=== PATIENT | female | born 1980 | race Hispanic/Latino ===

== ENCOUNTER 2024-09-19 16:41 | Inpatient (IN) | payer BC ==
[~2024-09-19] VITALS: Ht 177.8 cm; Wt 103.3 kg
[2024-09-19 19:00] VITALS: BP 98/61; PULSE 107; RESP 18; TEMP 98.2
[2024-09-19 20:00] VITALS: O2SAT 99
[2024-09-19] MEDS ORDERED: acetaMINOPHEN 500 MG TABLET PO PRN (20:00)
[2024-09-19] MEDS ORDERED: morPHINE 2 MG SYG IVP PRN (20:00)
--- NOTE | 2024-09-19 20:29 | HP ---
[facility] HISTORY AND PHYSICAL Date of Service: Sep 19, 2024 Time of Service: 20:29 HISTORY OF PRESENT ILLNESS: Date of Service: 09/19/2024, Patient was seen in [facility] room 316 44 year old female with Hx of DM II (Diagnosed 18 years ago), Obesity, HLD, Psoriasis who presented [facility] a [facility] for further evaluation of pain, redness and swelling of the right foot with non healing infected ulcer of the 5th toe of the right foot. Patient reports that she has non healing ulcer involving the 5th toe ongoing for the past 6 weeks. Over the last several days, patient reports having worsening pain and increased drainage from the wound. She has also noticed progressive redness involving the right foot as well. She reports having subjective fevers and chills. Patient reports having previous amputation performed of the 4th toe of the left foot in 2019 due to infection. She had revisional surgery done in 2021 involving the left foot. She reports having hardware in the left foot. Patient reports being followed by Cardiology as outpatient. She has seen Dr. Simpson previously and has undergone Peripheral arterial US which she was told was apparently normal. Reports hx of chronic hypotension but does not take any medication for it. Patient underwent X Ray of the right foot which showed changes of osteomyelitis of the 5th toe. Request was made for patient to be admitted to [facility]. Patient will be admitted under hospitalist service and consultation with Podiatry and infectious disease will be requested this admission. REVIEW OF SYSTEMS CONSTITUTIONAL: fevers, chills, asthenia, malaise NEUROLOGICAL: Denies headache, amaurosis fugax, motor weakness, sensory deficit, vertigo/spinning sensation, gait abnormalities, or tremors. ENT: No hearing loss, otalgia, otorrhea, rhinitis, rhinorrhea, hoarseness, or sore throat. CARDIOVASCULAR: Denies any exertional angina, dyspnea on exertion, orthopnea, paroxysmal nocturnal dyspnea, palpitations, life-threatening arrhythmias, claudication. PULMONARY: Denies any shortness of breath, cough, phlegm/sputum, hemoptysis, pleuritic chest pain. SLEEP: Denies morning headaches, daytime somnolence or napping. Denies difficulty falling asleep, staying asleep, waking from sleep. Denies knowledge of snoring. GASTROINTESTINAL: Denies any type of dysphagia to either liquids or solids. Denies nausea, vomiting, pyrosis, early satiety, abdominal pain, diarrhea, constipation, or changes in stool consistency or caliber. Denies coffee-ground emesis, hematemesis, hematochezia, or melanotic stools. GENITOURINARY: Denies frequency, urgency, nocturia, hematuria or incontinence (Storage/Irritative symptoms.) Low urinary stream, straining to void, urinary intermittency or hesitancy, splitting of the voiding stream, terminal dribbling. ENDOCRINOLOGIC: Denies polyuria, polydipsia, polyphagia or heat/cold intolerances. HEMATOLOGIC: Denies thrombophilia/previous clots, or coagulopathy/bleeding disorders. ONCOLOGIC: Denies personal history of malignancy. DERMATOLOGIC: redness and swelling of the right foot, with non heling wound involving the 5th toe of the right foot PSYCHIATRIC: Denies any suicidal or homicidal ideation. Denies hallucinations. PAST MEDICAL HISTORY: DM II, Hx of diabetic neuropathy of the foot, obesity, Psoriasis maintained on outpatient tx with otezla, hx of diabetic foot ulcer being followed by Dr. Sloan as outpatient PAST SURGICAL HISTORY: left 4th toe amputation in 2019, hx of revisional surgery of the left foot in 2021, hx of bilateral tubal ligation in 2004, hx of cholecystectomy PAST SOCIAL HISTORY: smoked about a pack a day for 30 years, quit a week ago, denies any significant alcohol consumption or illicit drug use, patient works in [employer] HISTORY: denies pertinent family hx Allergies: denies any known drug allergies Home medications: patient reports being on Otezla bid, tresiba 35 units at bedtime, metformin 1 g bid, atorvastatin, and Ozempic Uncoded Allergies: NKDA (Allergy, Unknown, 09/19/24) PHYSICAL EXAM GENERAL APPEARANCE: The patient is awake, alert, and oriented, in no acute cardiopulmonary distress. NEUROLOGICAL: Cranial nerves II-XII grossly intact. Motor is 5/5 in bilateral upper and lower extremities proximal to distal. No sensory deficits. HEENT: Face is symmetric. Pupils are equal and reactive. Extraocular movements are intact. NECK: Supple. No JVD. No thyromegaly. No submental, submandibular, pre- /postauricular, occipital or supraclavicular lymphadenopathy. CHEST: Normal chest expansion. No Telemetry. LUNGS: Absence of any rales, rhonchi or any wheezing. CARDIOVASCULAR: Regular. S1 and S2 normal. No appreciable rubs, murmurs or gallops. ABDOMEN: Soft, nontender, and nondistended. There is no rebound, voluntary guarding, or rigidity. : Deferred. No Donahue. EXTREMITIES: Ulcer noted of the first toe of the right foot with callus, 5th toe of the right foot with small wound noted with serosanguinous drainage with small opening, redness and swelling noted right foot noted as well. Left foot noted with prior scar of 4th toe amputation SKIN: as noted above LABS: Laboratory Tests Test 09/19/24 20:30 White Blood Count 10.8 K/uL (4.8-10.8) Red Blood Count 3.99 MIL/uL (4.00-5.50) L Hemoglobin 11.5 g/dL (12.0-16.0) L Hematocrit 35.9 % (36-48) L Mean Corpuscular Volume 90.0 fL (79-99) Mean Corpuscular Hemoglobin 28.8 pg (27.0-33.0) Mean Corpuscular Hemoglobin Concent 32.0 g/dL (32.0-36.0) Red Cell Distribution Width 13.2 % (11.0-15.5) Platelet Count 227 K/uL (130-400) Mean Platelet Volume 9.6 fL (7.5-10.5) Immature Granulocyte % (Auto) 0.4 % (0-1) Neutrophils (%) (Auto) 71.4 % (40.0-77.0) Lymphocytes (%) (Auto) 22.8 % (21.0-51.0) Monocytes (%) (Auto) 5.3 % (3.0-13.0) Eosinophils (%) (Auto) 0.0 % (0.0-8.0) Basophils (%) (Auto) 0.1 % (0.0-5.0) Neutrophils # (Auto) 7.7 K/uL (1.8-7.7) Lymphocytes # (Auto) 2.5 K/uL (1.0-4.8) Monocytes # (Auto) 0.6 K/uL (0.1-1.0) Eosinophils # (Auto) 0.00 K/uL (0.00-0.70) Basophils # (Auto) 0.01 K/uL (0.00-0.20) Absolute Immature Granulocyte (auto 0.04 K/uL (0-1) Nucleated Red Blood Cells 0.0 % (0.0-0.19) Erythrocyte Sedimentation Rate 21 MM/HR (0-20) H Prothrombin Time 11.3 SEC (9.6-11.6) Prothromb Time International Ratio 1.01 (0.85-1.15) Activated Partial Thromboplast Time 30.1 SEC (26.3-35.5) Sodium Level 142 mmol/L (136-145) Potassium Level 4.1 mmol/L (3.5-5.1) Chloride Level 106 mmol/L (101-111) Carbon Dioxide Level 32 mmol/L (21-32) Blood Urea Nitrogen 15 mg/dL (7-18) Creatinine 0.7 mg/dL (0.5-1.0) Glomerular Filtration Rate Calc 108 mL/min (>90) Random Glucose 128 mg/dL (70-105) H Hemoglobin A1c 7.9 % (4.0-6.0) H Estimated Average Glucose (eAG) 180 mg/dL (70-126) H Lactic Acid Level 0.9 mmol/L (0.8-2.5) Total Calcium 8.5 mg/dL (8.5-10.1) Magnesium Level 1.30 mg/dL (1.80-2.40) L Total Bilirubin 0.3 mg/dL (0.2-1.0) Aspartate Amino Transf (AST/SGOT) 9 U/L (10-37) L Alanine Aminotransferase (ALT/SGPT) 16 U/L (12-78) Alkaline Phosphatase 129 U/L (50-136) Total Creatine Kinase 47 U/L (21-232) C-Reactive Protein, Quantitative 25.20 mg/L (0.5-3.0) H Total Protein 6.2 g/dL (6.0-8.3) Albumin 2.8 g/dL (3.5-5.0) L Procalcitonin < 0.05 ng/mL (0.05-0.5) L Thyroid Stimulating Hormone (TSH) 4.54 uIU/mL (0.36-3.74) H Current Medications Medications (Trade) Dose Ordered Sig/Ramez Route PRN Reason Start Time Stop Time Status Last Admin Dose Admin Acetaminophen (TYLenol 500MG TAB) 500 mg Q6H PRN PO MILD PAIN (1-3) 09/19/24 20:00 10/19/24 19:59 UNV Cefepime HCl (MAXipime 2 gm vial) 2 gm Q12H IVPB 09/19/24 22:00 09/29/24 21:59 UNV Dextrose (D50w) 50 ml AD PRN IV HYPOGLYCEMIA PROTOCOL 09/19/24 20:30 10/19/24 20:29 UNV Glucagon (Glucagon 1mg Kit) 1 mg AD PRN IM HYPOGLYCEMIA PROTOCOL 09/19/24 20:30 10/19/24 20:29 UNV Insulin Glargine (LANtus 100 UNITS/ML 10 ML VIAL) 10 units HS SQ 09/19/24 21:00 10/19/24 20:59 UNV Insulin Human Regular (humuLIN R 100 UNIT/ML 3ML) INSULIN SLIDING SCAL... ACHS SQ 09/19/24 21:00 10/19/24 20:59 UNV Morphine Sulfate (morPHINE 2MG SYG) 2 mg Q6H PRN IVP SEVERE PAIN (7-10) 09/19/24 20:00 09/26/24 19:59 UNV Ondansetron HCl (zoFRAN 4MG INJ) 4 mg Q6H PRN IVP NAUSEA/VOMITING 09/19/24 20:30 10/19/24 20:29 UNV Sodium Chloride 1,000 ml @ 80 mls/hr [id number] IV 09/19/24 20:00 10/19/24 19:59 UNV Vancomycin HCl (Vancomycin Protocol) 1 each AD IV 09/19/24 20:30 10/03/24 20:29 UNV DIAGNOSTICS / RADIOLOGY: SERVICE 50 REASON: foot ulcer, 5th toe, assess for osteomyelitis, 1st toe with ulcer as well ORDERING PHYSICIAN: DAVID NDIAYE MD PROCEDURE: FT 3VW RT - FOOT COMP 3+VWS RT RIGHT FOOT RADIOGRAPHS - 3 VIEWS INDICATION: Fifth toe ulcer COMPARISON: None FINDINGS: AP, lateral, and oblique views. Erosive changes and lateral cortical fragmentation at the fifth proximal interphalangeal joint. No evidence for periosteal reaction, cortical erosive changes, or any abnormal subperiosteal bone resorption. Midfoot alignment is well maintained. Subcentimeter plantar calcaneal spur. IMPRESSION: Findings suggesting fifth proximal interphalangeal joint osteomyelitis. DICTATED BY: WILL FAN MD DATE: 09/19/242024 ELECTRONICALLY SIGNED BY: WILL FAN MD DATE: 09/19/242027 ASSESSMENT: Acute osteomyelitis of the 5th toe of PIP joint, right foot, POA Non healing diabetic ulcer of the 5th toe of right foot, POA Progressive cellulitis of the right foot, POA Chronic diabetic ulcer of the 1st toe of the right foot, POA Underlying Hx of DM II, POA Diabetic Neuropathy, POA Hx of Psoriasis, POA HLD, POA Obesity, POA Hx of Hypotension, POA Hx of 4th toe amputation of left foot, POA PLAN: Patient will be admitted ot medical surgical floor under telemetry monitoring Patient will receive bolus of IV fluids, will start NS at 80 mls/ h Wound cultures will be obtained, blood cultures, will check ESR, CRP, procalcitonin Broad spectrum abx with Vanc/Cefepime/flagyl Patient reports having hardware in left foot from prior surgery, will need to ensure it is safe fro MRI, will f/u in am, X Ray does confirm osteomyelitis of the 5 toe PIP joint of the right foot Discussed patient's case with Dr. Calabrese with podiatry and Dr. Mclean with infectious disease, appreciate recommendations We will repeat doppler of the RLE to assess for significant PAD limiting ulcer healing Will check lactic acid Patient has requested medical therapy and maximizing healing of the 5th toe of the right foot and would prefer not to undergo amputation of the right foot, d/w podiatry as well We will start lantus 10 units qhs and SSI ac and hs will f/u labs done tonight Date of Service: 09/19/2024 Plan of care was discussed with patient at bedside, David Ndiaye MD Advanced Care Planning: Which of the following were discussed: Hospice care: Yes __ No _X_ Therapeutic options: Yes _X_ No __ Advance directives: Yes _X_ No __ Other discussions: Discussed with who?: Patient Voluntary nature of this service was explained to the patient? Yes _x_ No __ Amount of time spent: 20 minutes DAVID NDIAYE MD Sep 19, 2024 20:29
[2024-09-19] MEDS ORDERED: ondanSETRON 4MG INJ IVP PRN (20:30)
[2024-09-19] MEDS ORDERED: VANCOMYCIN PROTOCOL PER PHARMACY IV SCH (20:30)
[2024-09-19] MEDS ORDERED: GLUCAGON 1MG KIT 1 MG ML IM PRN (20:30)
[2024-09-19] MEDS ORDERED: DEXTROSE 50%-WATER 50 ML DISP.SYRIN IV PRN (20:30)
[2024-09-19] MEDS: 0.9% NACL 500ML IV.SOLN 500 ML IV ONE (20:30)
[2024-09-19 20:41] LABS: BASOPHILS # (AUTO) 0.01 K/uL (0.00-0.20); BASOPHILS % (AUTO) 0.1 % (0.0-5.0); HEMATOCRIT 35.9 % (36-48); IMMATURE GRANULOCYTE ABSOLUTE 0.04 K/uL (0-1); LYMPHOCYTES # (AUTO) 2.5 K/uL (1.0-4.8); LYMPHOCYTES % (AUTO) 22.8 % (21.0-51.0); MEAN CORPUSCULAR HEMOGLOBIN 28.8 pg (27.0-33.0); MONOCYTES # (AUTO) 0.6 K/uL (0.1-1.0); MONOCYTES % (AUTO) 5.3 % (3.0-13.0); NEUTROPHILS # (AUTO) 7.7 K/uL (1.8-7.7); NEUTROPHILS % (AUTO) 71.4 % (40.0-77.0); PLATELET COUNT (AUTO) 227 K/uL (130-400); RED BLOOD CELL COUNT(AUTO) 3.99 MIL/uL (4.00-5.50); RED CELL DISTRIBUTION WIDTH 13.2 % (11.0-15.5); WHITE BLOOD COUNT (AUTO) 10.8 K/uL (4.8-10.8)
[2024-09-19 20:56] LABS: INR 1.01 (0.85-1.15); PROTHROMBIN TIME 11.3 SEC (9.6-11.6)
[2024-09-19 20:57] LABS: PARTIAL THROMBOPLASTIN TIME 30.1 SEC (26.3-35.5)
[2024-09-19 20:58] LABS: HEMOGLOBIN A1C 7.9 % (4.0-6.0)
[2024-09-19] MEDS: INSULIN humuLIN R 100 UNIT/ML 3ML SQ SCH (21:00)
[2024-09-19 21:03] LABS: CREATININE 0.7 mg/dL (0.5-1.0); POTASSIUM 4.1 mmol/L (3.5-5.1)
[2024-09-19] MEDS: INSULIN GLARgine 100 UNITS/ML 10 ML VIAL SQ SCH (21:10)
[2024-09-19 21:16] LABS: ALBUMIN 2.8 g/dL (3.5-5.0); BILIRUBIN,TOTAL 0.3 mg/dL (0.2-1.0); MAGNESIUM 1.3 mg/dL (1.80-2.40); THYROID STIMULATING HORMONE 4.54 uIU/mL (0.36-3.74); TOTAL PROTEIN, SERUM 6.2 g/dL (6.0-8.3)
[2024-09-19 21:43] LABS: ERYTHROCYTE SEDIMENTATION RATE 21 MM/HR (0-20)
[2024-09-19] MEDS: ceFEPime HCL 2 GM VIAL IVPB SCH (22:20)
[2024-09-19] MEDS: metRONIDazole 500MG/100ML BAG 100 ML IVPB SCH (23:44)
[2024-09-19 23:51] VITALS: BP 121/68; PULSE 97; RESP 17; TEMP 98
[2024-09-20] VITALS (7 sets, daily range): BP systolic 101–113; BP diastolic 64–70; PULSE 79–88; RESP 17–18; TEMP 98–98.3; O2SAT 95–99
[2024-09-20] MEDS: VANCOMYCIN 1.25 GM/250 ML BAG 250 ML IV SCH (00:53)
[2024-09-20] MEDS ORDERED: COMPOUND IV MISC 1 EACH IVSOLN MISC PRN (01:00)
[2024-09-20] MEDS: 0.9%NACL 1000ML 1,000 ML IV SCH (02:51)
[2024-09-20] MEDS: MAGNESIUM 2GM PREMIX 50ML 50 ML IV SCH (02:52)
[2024-09-20] MEDS ORDERED: METF-446 PO (09:49)
[2024-09-20] MEDS ORDERED: SEMA2PEN SQ (09:49)
[2024-09-20] MEDS ORDERED: ATOR20TA65 PO (09:49)
[2024-09-20] MEDS ORDERED: ASPI-1005 PO (09:49)
[2024-09-20] MEDS ORDERED: INSU100V37 SQ (09:49)
[2024-09-20] MEDS ORDERED: LACTULOSE 20 GM/30 ML UDCUP PO PRN (10:00)
--- NOTE | 2024-09-20 10:00 | HMCIMG ---
ULTRASOUND ARTERIAL DUPLEX RIGHT LOWER EXTREMITY, UNILATERAL INDICATION: Peripheral vascular disease TECHNIQUE: Routine grayscale, color Doppler, and power Doppler ultrasound of the right lower extremity arteries were obtained. COMPARISON: None FINDINGS: Velocities in cm/sec SHAPER SETTER: 120 SFA: Prox 112, Mid 130, Distal 135 Popliteal 106 proximally and 114 distally Anterior Tibial 118 distally Posterior Tibial 36 Dorsalis Pedis 111 Triphasic flow along the right lower extremity arterial system except for monophasic flow along the right posterior tibial, distal anterior tibial, and dorsalis pedis arteries. IMPRESSION: Monophasic flow along the right posterior tibial, distal anterior tibial, and dorsalis pedis arteries, without evidence for high-grade flow-rate limiting stenosis. Parameters as reported.
--- NOTE | 2024-09-20 10:02 | PN ---
[facility] PROGRESS NOTE Date of Service: Sep 20, 2024 Time of Service: 09:51 SUBJECTIVE: [ ] 44 year old female with Hx of DM II (Diagnosed 18 years ago), Obesity, HLD, Psoriasis who presented as a transfer from [facility] ER for further evaluation of pain, redness and sweeling of the right foot with no healing infected ulcer of the 5th toe of the right foot. Patient reports that she has non healing ulcer involving the 5th toe ongoing for the past 6 weeks. Over the last several days, patient reports having worsening pain and increased drainage from the wound. She has also noticed progressive redness involving the right foot as well. She reports having subjective fevers and chills. 09/20/2024 patient is seen and examined. Waiting for consultants to evaluate; Dr Arriola will see the patient today; will follow recommendations. primary reports no events overnight 1100 Dr arriola apparently patient does not want amputation of the toe wants to attempt with antibiotics and local wound care and hyperbarics armature winder repairer's we will be consulted. REVIEW OF SYSTEMS CONSTITUTIONAL: fevers, chills, asthenia, malaise NEUROLOGICAL: Denies headache, amaurosis fugax, motor weakness, sensory deficit, vertigo/spinning sensation, gait abnormalities, or tremors. ENT: No hearing loss, otalgia, otorrhea, rhinitis, rhinorrhea, hoarseness, or sore throat. CARDIOVASCULAR: Denies any exertional angina, dyspnea on exertion, orthopnea, paroxysmal nocturnal dyspnea, palpitations, life-threatening arrhythmias, claudication. PULMONARY: Denies any shortness of breath, cough, phlegm/sputum, hemoptysis, pleuritic chest pain. SLEEP: Denies morning headaches, daytime somnolence or napping. Denies difficulty falling asleep, staying asleep, waking from sleep. Denies knowledge of snoring. GASTROINTESTINAL: Denies any type of dysphagia to either liquids or solids. Denies nausea, vomiting, pyrosis, early satiety, abdominal pain, diarrhea, constipation, or changes in stool consistency or caliber. Denies coffee-ground emesis, hematemesis, hematochezia, or melanotic stools. GENITOURINARY: Denies frequency, urgency, nocturia, hematuria or incontinence (Storage/Irritative symptoms.) Low urinary stream, straining to void, urinary intermittency or hesitancy, splitting of the voiding stream, terminal dribbling. ENDOCRINOLOGIC: Denies polyuria, polydipsia, polyphagia or heat/cold intolerances. HEMATOLOGIC: Denies thrombophilia/previous clots, or coagulopathy/bleeding disorders. ONCOLOGIC: Denies personal history of malignancy. DERMATOLOGIC: redness and swelling of the right foot, with non heling wound inv olving the 5th toe of the right foot PSYCHIATRIC: Denies any suicidal or homicidal ideation. Denies hallucinations. PHYSICAL EXAM GENERAL APPEARANCE: The patient is awake, alert, and oriented, in no acute cardiopulmonary distress. NEUROLOGICAL: Cranial nerves II-XII grossly intact. Motor is 5/5 in bilateral upper and lower extremities proximal to distal. No sensory deficits. HEENT: Face is symmetric. Pupils are equal and reactive. Extraocular movements are intact. NECK: Supple. No JVD. No thyromegaly. No submental, submandibular, pre- /postauricular, occipital or supraclavicular lymphadenopathy. CHEST: Normal chest expansion. No Telemetry. LUNGS: Absence of any rales, rhonchi or any wheezing. CARDIOVASCULAR: Regular. S1 and S2 normal. No appreciable rubs, murmurs or gallops. ABDOMEN: Soft, nontender, and nondistended. There is no rebound, voluntary guarding, or rigidity. : Deferred. No Donahue. EXTREMITIES: Ulcer noted of the first toe of the right foot with callus, 5th toe of the right foot with small wound noted with serosanguinous drainage with small opening, redness and swelling noted right foot noted as well. Left foot noted with prior scar of 4th toe amputation SKIN: as noted above Vital Signs (last 8hr) Date Time Temp Pulse Resp B/P (MAP) Pulse Ox O2 Delivery O2 Flow Rate FiO2 09/20/24 08:00 98.1 81 18 102/65 8 09/20/24 04:14 98.1 88 17 112/66 92 Room Air LABS: Laboratory: Test 09/20/24 05:22 09/19/24 20:30 Range/Units Whole Blood Glucose 93 70-110 MG/DL White Blood Count 10.8 4.8-10.8 K/uL Red Blood Count 3.99 L 4.00-5.50 MIL/uL Hemoglobin 11.5 L 12.0-16.0 g/dL Hematocrit 35.9 L 36-48 % Mean Corpuscular Volume 90.0 79-99 fL Mean Corpuscular Hemoglobin 28.8 27.0-33.0 pg Mean Corpuscular Hemoglobin Concent 32.0 32.0-36.0 g/dL Red Cell Distribution Width 13.2 11.0-15.5 % Platelet Count 227 130-400 K/uL Mean Platelet Volume 9.6 7.5-10.5 fL Immature Granulocyte % (Auto) 0.4 0-1 % Neutrophils (%) (Auto) 71.4 40.0-77.0 % Lymphocytes (%) (Auto) 22.8 21.0-51.0 % Monocytes (%) (Auto) 5.3 3.0-13.0 % Eosinophils (%) (Auto) 0.0 0.0-8.0 % Basophils (%) (Auto) 0.1 0.0-5.0 % Neutrophils # (Auto) 7.7 1.8-7.7 K/uL Lymphocytes # (Auto) 2.5 1.0-4.8 K/uL Monocytes # (Auto) 0.6 0.1-1.0 K/uL Eosinophils # (Auto) 0.00 0.00-0.70 K/uL Basophils # (Auto) 0.01 0.00-0.20 K/uL Absolute Immature Granulocyte (auto 0.04 0-1 K/uL Nucleated Red Blood Cells 0.0 0.0-0.19 % Erythrocyte Sedimentation Rate 21 H 0-20 MM/HR Prothrombin Time 11.3 9.6-11.6 SEC Prothromb Time International Ratio 1.01 0.85-1.15 Activated Partial Thromboplast Time 30.1 26.3-35.5 SEC Sodium Level 142 136-145 mmol/L Potassium Level 4.1 3.5-5.1 mmol/L Chloride Level 106 101-111 mmol/L Carbon Dioxide Level 32 21-32 mmol/L Blood Urea Nitrogen 15 7-18 mg/dL Creatinine 0.7 0.5-1.0 mg/dL Glomerular Filtration Rate Calc 108 >90 mL/min Random Glucose 128 H 70-105 mg/dL Hemoglobin A1c 7.9 H 4.0-6.0 % Estimated Average Glucose (eAG) 180 H 70-126 mg/dL Lactic Acid Level 0.9 0.8-2.5 mmol/L Total Calcium 8.5 8.5-10.1 mg/dL Magnesium Level 1.30 L 1.80-2.40 mg/dL Total Bilirubin 0.3 0.2-1.0 mg/dL Aspartate Amino Transf (AST/SGOT) 9 L 10-37 U/L Alanine Aminotransferase (ALT/SGPT) 16 12-78 U/L Alkaline Phosphatase 129 50-136 U/L Total Creatine Kinase 47 21-232 U/L C-Reactive Protein, Quantitative 25.20 H 0.5-3.0 mg/L Total Protein 6.2 6.0-8.3 g/dL Albumin 2.8 L 3.5-5.0 g/dL Procalcitonin < 0.05 L 0.05-0.5 ng/mL Thyroid Stimulating Hormone (TSH) 4.54 H 0.36-3.74 uIU/mL Current Medications Medications (Trade) Dose Ordered Sig/Ramez Route PRN Reason Start Time Stop Time Status Last Admin Dose Admin Acetaminophen (TYLenol 500MG TAB) 500 mg Q6H PRN PO MILD PAIN (1-3) 09/19/24 20:00 10/19/24 19:59 Cefepime HCl (MAXipime 2 gm vial) 2 gm Q12H IVPB 09/19/24 22:00 09/29/24 21:59 09/20/24 09:26 2 GM Dextrose (D50w) 50 ml AD PRN IV HYPOGLYCEMIA PROTOCOL 09/19/24 20:30 10/19/24 20:29 Glucagon (Glucagon 1mg Kit) 1 mg AD PRN IM HYPOGLYCEMIA PROTOCOL 09/19/24 20:30 10/19/24 20:29 Insulin Glargine (LANtus 100 UNITS/ML 10 ML VIAL) 10 units HS SQ 09/19/24 21:00 10/19/24 20:59 09/19/24 21:10 10 UNITS Insulin Human Regular (humuLIN R 100 UNIT/ML 3ML) INSULIN SLIDING SCAL... ACHS SQ 09/19/24 21:00 10/19/24 20:59 Magnesium Sulfate 50 ml @ 0 mls/hr PROTOCOL IV 09/19/24 22:30 10/19/24 22:29 09/20/24 02:52 25 MLS/HR Metronidazole/ Sodium Chloride 100 ml @ 100 mls/hr Q8H6 IVPB 09/20/24 00:00 09/30/24 00:00 09/20/24 06:24 100 MLS/HR Morphine Sulfate (morPHINE 2MG SYG) 2 mg Q6H PRN IVP SEVERE PAIN (7-10) 09/19/24 20:00 09/26/24 19:59 Ondansetron HCl (zoFRAN 4MG INJ) 4 mg Q6H PRN IVP NAUSEA/VOMITING 09/19/24 20:30 10/19/24 20:29 Sodium Chloride 1,000 ml @ 80 mls/hr [id number] IV 09/19/24 20:00 10/19/24 19:59 09/20/24 09:33 80 MLS/HR Vancomycin HCl 250 ml @ 125 mls/hr Q8H IV 09/20/24 01:00 10/11/24 00:59 09/20/24 09:31 125 MLS/HR Vancomycin HCl (Vancomycin Protocol) 1 each AD IV 09/19/24 20:30 10/03/24 20:29 DIAGNOSTICS / RADIOLOGY: [ ] ASSESSMENT: Acute osteomyelitis of the 5th toe of PIP joint, right foot, POA Non healing diabetic ulcer of the 5th toe of right foot, POA Progressive cellulitis of the right foot, POA Chronic diabetic ulcer of the 1st of the right foot, POA Underlying Hx of DM II, POA Diabetic Neuropathy, POA Hx of Psoriasis, POA HLD, POA Obesity, POA Hx of Hypotension, POA Hx of 4th toe amputation of left foot, POA PLAN: Admit: Medical-surgical floor condition: Guarded Status: Full code IVF: NS at 80 mL/hour Consultants street light cleaner no surgical intervention as per patient wants to attempt with antibiotics and local wound care and hyperbarics., Infectious Disease, armature winder repairer's Antibiotics: Vanc/Cefepime/flagyl we will follow Infectious Disease recommendations Wound cultures in process Test: Arterial ultrasound pending results. Labs cbc, cmp, mag+ a.m. and inflammatory markers every other day. Replace electrolytes as needed as per protocol to keep potassium above 4.0 magnesium 2.0. Continue a.c. HS monitoring with sliding scale coverage Home medication reviewed and reconciled We will continue with local wound care per Podiatry, nonweightbearing left foot. PRN: MEDICATIONS Tylenol 650 mg po every 4 hrs for fever zofran 4 mg IV every 6 hrs for n/v Hydralazine 5 mg IV every 4 hrs systolic pressure > 160 bowel regiment: lactulose 20 gm PO BID PRN constipation Pain management:Morphine 2 mg IV q4 hrs as needed Supportive measures: DVT ppx, GI ppx all questions answered Supervising MD: Dr. mensah PBetzy c/d This document was generated in part using voice recognition software, occasional wrong word or sound alike substitutions may have occurred due to the inherent limitations of voice recognition software. Read the chart carefully and recognize using context, where the substitutions have occurred. Although every effort was made to edit the content, contact lens molder and typing errors may occur ATTESTATION BY PHYSICIAN I have seen and examined the patient. I reviewed the documentation, medical decision making, and treatment plan as noted by the mid-level provider above. I agree with the findings and plan of care. Sonia Mensah MD, ELIZABETH NP Sep 20, 2024 10:02
[2024-09-20] MEDS ORDERED: PoTASSium chloRIDE 20MEQ/100ML 100 ML IV PRN (10:30)
[2024-09-20] MEDS ORDERED: PoTASSium chl 10% ELIXIR 20MEQ 20 MEQ/15 ML UDCUP PO PRN (10:30)
--- NOTE | 2024-09-20 11:09 | CONS ---
CONSULTATION NOTE Date of Service: Sep 20, 2024 Reason for Consultation: This 44 years old female was seen on consultation courtesy of Dr. Ndiaye for evaluation of nonhealing ulcer to the 5th toe right foot patient stated that the ulcer has been present for seven weeks. X-ray evaluation demonstrated some changes on the proximal phalanx most likely consistent with osteomyelitis. Can not rule it out with MRI due to metal on left foot. Requesting Physician: Dr. Ndiaye HISTORY OF PRESENT ILLNESS: As stated above. REVIEW OF SYSTEMS CONSTITUTIONAL: Denies fever, chills, or fatigue. HEAD/FACE: No signs of trauma. EENT: Denies eye pain, blurred vision, double vision, or light sensitivity. RESPIRATORY: Denies shortness of breath, cough, wheezing CARDIOVASCULAR: Denies chest pain, palpitation, syncope GASTROINTESTINAL/ABDOMINAL: Denies abdominal pain, constipation, diarrhea, nausea or vomiting GENITOURINARY: Denies dysuria or hematuria. MUSCULOSKELETAL: Denies joint pain, tenderness, or trauma. INTEGUMENTARY: Ulcer edema and erythema to 5th toe right foot. NEUROLOGICAL/PSYCH: Denies anxiety, depression, heat or cold intolerance. PAST MEDICAL HISTORY: Diabetes obesity hypertension. PAST SURGICAL HISTORY: Metatarsal amputation to the left foot. PAST SOCIAL HISTORY: Denies any smoking drinking or using illicit drugs. FAMILY HISTORY: Noncontributory. Uncoded Allergies: NKDA (Allergy, Unknown, 09/19/24) PHYSICAL EXAM EYES: Anicteric. Pupils equal and reactive. HENT: No oral thrush seen, moist Oral mucosa NECK: Supple, no JVD or thyromegaly. LUNGS: Good air entry. No rales, no rhonchi. CARDIOVASCULAR: S1, S2 regular. No murmur heard. ABDOMEN: Soft, non tender, bowel sounds present, no organomegaly CENTRAL NERVOUS SYSTEM: Awake, alert, oriented x 3. No focal deficits. SKIN: Diabetic foot ulcer with edema and erythema. Fifth toe right foot. LYMPHATICS: No peripheral lymphadenopathy MUSCULOSKELETAL: No joint swelling, erythema or tenderness. EXTREMITIES: Hammer digit deformities on bilateral feet with ulceration of the 5th toe right foot possible osteomyelitis to 5th proximal phalanx BACK: No deformity, no pressure ulcer. GENITOURINARY: No dysuria or hematuria Vital Sign (Last 24 Hours) 09/19/24 09/20/24 09/20/24 20:00 04:14 08:00 Temp 98.1 Pulse 81 Resp 18 B/P (MAP) 102/65 Pulse Ox 8 O2 Delivery Room Air O2 Flow Rate 0 FiO2 21 Intake & Output (last 24hrs) 09/19/24 09/19/24 09/20/24 15:00 23:00 07:00 Intake Total 600.0 ml 1000.0 ml Balance 600.0 ml 1000.0 ml LABS: Laboratory: Test 09/20/24 05:22 09/19/24 20:30 Range/Units Whole Blood Glucose 93 70-110 MG/DL White Blood Count 10.8 4.8-10.8 K/uL Red Blood Count 3.99 L 4.00-5.50 MIL/uL Hemoglobin 11.5 L 12.0-16.0 g/dL Hematocrit 35.9 L 36-48 % Mean Corpuscular Volume 90.0 79-99 fL Mean Corpuscular Hemoglobin 28.8 27.0-33.0 pg Mean Corpuscular Hemoglobin Concent 32.0 32.0-36.0 g/dL Red Cell Distribution Width 13.2 11.0-15.5 % Platelet Count 227 130-400 K/uL Mean Platelet Volume 9.6 7.5-10.5 fL Immature Granulocyte % (Auto) 0.4 0-1 % Neutrophils (%) (Auto) 71.4 40.0-77.0 % Lymphocytes (%) (Auto) 22.8 21.0-51.0 % Monocytes (%) (Auto) 5.3 3.0-13.0 % Eosinophils (%) (Auto) 0.0 0.0-8.0 % Basophils (%) (Auto) 0.1 0.0-5.0 % Neutrophils # (Auto) 7.7 1.8-7.7 K/uL Lymphocytes # (Auto) 2.5 1.0-4.8 K/uL Monocytes # (Auto) 0.6 0.1-1.0 K/uL Eosinophils # (Auto) 0.00 0.00-0.70 K/uL Basophils # (Auto) 0.01 0.00-0.20 K/uL Absolute Immature Granulocyte (auto 0.04 0-1 K/uL Nucleated Red Blood Cells 0.0 0.0-0.19 % Erythrocyte Sedimentation Rate 21 H 0-20 MM/HR Prothrombin Time 11.3 9.6-11.6 SEC Prothromb Time International Ratio 1.01 0.85-1.15 Activated Partial Thromboplast Time 30.1 26.3-35.5 SEC Sodium Level 142 136-145 mmol/L Potassium Level 4.1 3.5-5.1 mmol/L Chloride Level 106 101-111 mmol/L Carbon Dioxide Level 32 21-32 mmol/L Blood Urea Nitrogen 15 7-18 mg/dL Creatinine 0.7 0.5-1.0 mg/dL Glomerular Filtration Rate Calc 108 >90 mL/min Random Glucose 128 H 70-105 mg/dL Hemoglobin A1c 7.9 H 4.0-6.0 % Estimated Average Glucose (eAG) 180 H 70-126 mg/dL Lactic Acid Level 0.9 0.8-2.5 mmol/L Total Calcium 8.5 8.5-10.1 mg/dL Magnesium Level 1.30 L 1.80-2.40 mg/dL Total Bilirubin 0.3 0.2-1.0 mg/dL Aspartate Amino Transf (AST/SGOT) 9 L 10-37 U/L Alanine Aminotransferase (ALT/SGPT) 16 12-78 U/L Alkaline Phosphatase 129 50-136 U/L Total Creatine Kinase 47 21-232 U/L C-Reactive Protein, Quantitative 25.20 H 0.5-3.0 mg/L Total Protein 6.2 6.0-8.3 g/dL Albumin 2.8 L 3.5-5.0 g/dL Procalcitonin < 0.05 L 0.05-0.5 ng/mL Thyroid Stimulating Hormone (TSH) 4.54 H 0.36-3.74 uIU/mL DIAGNOSTICS / RADIOLOGY: X-ray reports reviewed positive possible osteomyelitis 5th toe proximal phalanx. Right foot. ASSESSMENT: Diabetes with ulceration 5th toe right foot Osteomyelitis 5th toe right foot. Underlying peripheral vascular disease. 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 PLAN: Treatment options has been explained to the patient including amputation of the 5th toe versus IV antibiotics local wound care and Hyperbaric Medicine treatments. Patient at this moment a does not want amputation of the toe she we will attempt with the antibiotics local wound care and hyperbarics no guarantees were offered at this time the patient was explained that there is a chance she may lose this toe and possible complications including increased cellulitis edema erythema and osteomyelitis. Patient will be getting cardiovascular consultation secondary to her peripheral vascular disease. We will monitor his progress during the stay here in the hospital and the plan will be for continued IV antibiotics Hyperbaric local wound care for the next four weeks. And we will plan further depending on progress. Local wound care has been recommended at this time with Iodosorb every other day to the toe as a local wound care. And also pending Infectious Disease recommendation at this point. HEENA GREENFIELD DPM Sep 20, 2024 11:09
[2024-09-20] MEDS: IODOSORB GEL 40GM TP SCH (12:23)
--- NOTE | 2024-09-20 12:59 | CONS ---
Cardiac Consult Note CONSULT NOTE DATE OF SERVICE: September 20, 2024 REFERRING PROVIDER: RENETTA GONZALEZ MD REASON FOR CONSULT: [] Right foot wound Abnormal arterial Doppler studies HPI: 44-year-old female known to Dr. Simpson who was admitted secondary to poor healing wounds of right foot with possible 5th digit fracture although patient does not remember any trauma. She was originally seen by Dr. Simpson in 2022 and had noninvasive studies revealing monophasic waveforms of her infrapopliteal vessels with no evidence of macrovascular disease and there was then an IMS 100 that was done revealing a significant polyneuropathy and patient does admit to poorly controlled diabetes mellitus with a hemoglobin A1cs in the 11% range but with her last hemoglobin A1c at 6.7%. Patient has not had a formal angiogram performed. On patient's arterial Doppler done on this admission only a right lower extremity arterial Doppler study was performed with no comparison to left which will be ordered. It should be noted that she has had amputations of her left foot in the past. Patient does take aspirin atorvastatin Tresiba and metformin. She has no known allergies. Currently denies any chest pain pressure tightness. Denies any PND orthopnea with minimal lower extremity swelling. ROS: No fever, headache, chest pain, abdominal pain, nausea, vomiting, or diarrhea. PMHX: Diabetes mellitus Dyslipidemia Obesity Psoriasis PSHX: Left 4th digit amputation Cholecystectomy BTL FH: Positive for heart disease in maternal and paternal grandmothers in their 60s mother is father is alive Diabetes mellitus SOCIAL: Former smoker quit August 12, 2024 Denies alcohol use PHYSICAL EXAMINATION: GENERAL: No acute distress. HEENT: Normocephalic, atraumatic. CARDIAC: Positive S1 and S2. No murmurs. LUNGS: Clear to auscultation bilaterally. ABDOMEN: Bowel sounds present, soft, nontender. EXTREMITIES: Trace pretibial and pedal edema with palpable dorsalis pedis pulses bilaterally NEUROLOGIC: Cranial nerves 2-12 grossly intact. PSYCHIATRIC: Calm. ASSESSMENT: Poor healing ulcer x2 right foot Diabetic angiopathy Possible venous insufficiency and May-Thurner syndrome Psoriasis PLAN: Patient does indeed have monophasic waveforms noted in arterial Doppler study done of the right leg there was no comparison in the left leg noted and it should be also noted that patient has had these findings on previous arterial Doppler studies done in 2021. This could definitely be a component of microvascular disease but venous insufficiency can also be playing a role if there is significant venous reflux from a superficial level or deep level which could be contributing to poor wound healing. We will order venous Dopplers on patient in addition to a left lower extremity arterial Doppler for Dr. Simpson her primary anodiser and yarn bleaching machine operator to review when he sees patient tomorrow on daily rounds. At that time he will decide whether patient would benefit from formal angiography versus CT angiography and then decide on whether any venous workup should be done on an in or outpatient basis. All questions have been answered to patient's content orders have been given to patient's nurse and further recommendations will follow pending results. Vital Signs 09/19/24 09/19/24 09/19/24 09/20/24 19:00 20:00 23:51 04:14 Temp 98.2 98.1 98.1 Pulse 107 97 88 Resp 18 17 17 B/P (MAP) 98/61 121/68 112/66 Pulse Ox 99 99 97 92 O2 Delivery Room Air Room Air* Room Air Room Air O2 Flow Rate 0 FiO2 21 09/20/24 09/20/24 08:00 12:00 Temp 98.1 98.1 Pulse 81 79 Resp 18 18 B/P (MAP) 102/65 101/64 Pulse Ox 8 99 O2 Delivery Room Air Laboratory Tests Test 09/19/24 20:30 09/20/24 05:22 09/20/24 11:03 White Blood Count 10.8 K/uL (4.8-10.8) Red Blood Count 3.99 MIL/uL (4.00-5.50) Hemoglobin 11.5 g/dL (12.0-16.0) Hematocrit 35.9 % (36-48) Mean Corpuscular Volume 90.0 fL (79-99) Mean Corpuscular Hemoglobin 28.8 pg (27.0-33.0) Mean Corpuscular Hemoglobin Concent 32.0 g/dL (32.0-36.0) Red Cell Distribution Width 13.2 % (11.0-15.5) Platelet Count 227 K/uL (130-400) Mean Platelet Volume 9.6 fL (7.5-10.5) Immature Granulocyte % (Auto) 0.4 % (0-1) Neutrophils (%) (Auto) 71.4 % (40.0-77.0) Lymphocytes (%) (Auto) 22.8 % (21.0-51.0) Monocytes (%) (Auto) 5.3 % (3.0-13.0) Eosinophils (%) (Auto) 0.0 % (0.0-8.0) Basophils (%) (Auto) 0.1 % (0.0-5.0) Neutrophils # (Auto) 7.7 K/uL (1.8-7.7) Lymphocytes # (Auto) 2.5 K/uL (1.0-4.8) Monocytes # (Auto) 0.6 K/uL (0.1-1.0) Eosinophils # (Auto) 0.00 K/uL (0.00-0.70) Basophils # (Auto) 0.01 K/uL (0.00-0.20) Absolute Immature Granulocyte (auto 0.04 K/uL (0-1) Nucleated Red Blood Cells 0.0 % (0.0-0.19) Erythrocyte Sedimentation Rate 21 MM/HR (0-20) Prothrombin Time 11.3 SEC (9.6-11.6) Prothromb Time International Ratio 1.01 (0.85-1.15) Activated Partial Thromboplast Time 30.1 SEC (26.3-35.5) Sodium Level 142 mmol/L (136-145) Potassium Level 4.1 mmol/L (3.5-5.1) Chloride Level 106 mmol/L (101-111) Carbon Dioxide Level 32 mmol/L (21-32) Blood Urea Nitrogen 15 mg/dL (7-18) Creatinine 0.7 mg/dL (0.5-1.0) Glomerular Filtration Rate Calc 108 mL/min (>90) Random Glucose 128 mg/dL (70-105) Hemoglobin A1c 7.9 % (4.0-6.0) Estimated Average Glucose (eAG) 180 mg/dL (70-126) Lactic Acid Level 0.9 mmol/L (0.8-2.5) Total Calcium 8.5 mg/dL (8.5-10.1) Magnesium Level 1.30 mg/dL (1.80-2.40) Total Bilirubin 0.3 mg/dL (0.2-1.0) Aspartate Amino Transf (AST/SGOT) 9 U/L (10-37) Alanine Aminotransferase (ALT/SGPT) 16 U/L (12-78) Alkaline Phosphatase 129 U/L (50-136) Total Creatine Kinase 47 U/L (21-232) C-Reactive Protein, Quantitative 25.20 mg/L (0.5-3.0) Total Protein 6.2 g/dL (6.0-8.3) Albumin 2.8 g/dL (3.5-5.0) Procalcitonin < 0.05 ng/mL (0.05-0.5) Thyroid Stimulating Hormone (TSH) 4.54 uIU/mL (0.36-3.74) Whole Blood Glucose 93 MG/DL (70-110) 143 MG/DL (70-110) Current Medications Medications Dose Ordered Sig/Ramez Route PRN Reason Start Time Stop Time Status Last Admin Sodium Chloride 1,000 ml @ 80 mls/hr [id number] IV 09/19/24 20:00 10/19/24 19:59 09/20/24 09:33 Insulin Human Regular INSULIN SLIDING SCAL... ACHS SQ 09/19/24 21:00 10/19/24 20:59 Vancomycin HCl 1 each AD IV 09/19/24 20:30 10/03/24 20:29 Cefepime HCl 2 gm Q12H IVPB 09/19/24 22:00 09/29/24 21:59 09/20/24 09:26 Insulin Glargine 10 units HS SQ 09/19/24 21:00 10/19/24 20:59 09/19/24 21:10 Sodium Chloride 500 ml @ 0 mls/hr ONCE ONCE IV 09/19/24 20:30 09/19/24 20:36 DC 09/19/24 20:30 Metronidazole/ Sodium Chloride 100 ml @ 100 mls/hr Q8H6 IVPB 09/20/24 00:00 09/30/24 00:00 09/20/24 06:24 Vancomycin HCl 250 ml @ 125 mls/hr Q8H IV 09/20/24 01:00 10/11/24 00:59 09/20/24 09:31 Magnesium Sulfate 50 ml @ 0 mls/hr PROTOCOL IV 09/19/24 22:30 10/19/24 22:29 09/20/24 02:52 Aspirin 81 mg DAILY PO 09/21/24 09:00 10/21/24 08:59 Atorvastatin Calcium 20 mg HS PO 09/20/24 21:00 10/20/24 20:59 Cadexomer Iodine 1 APPL ONCE TP 09/20/24 11:00 10/20/24 10:59 09/20/24 12:23 Reported Medications Insulin Degludec (Tresiba) 100 Unit/Ml Vial, 35 UNIT SQ HS, VIAL 09/20/24 Semaglutide (Ozempic) 2 Mg/0.75 Ml (8 Mg/3 Ml) Pen.injctr, 2 MG SQ QWEEK for 30 Days, #3 ML 0 Refills 09/20/24 Metformin HCl (Metformin HCl) 1,000 Mg Tablet, 1000 MG PO BID, TAB 09/20/24 Atorvastatin Calcium (Atorvastatin Calcium) 20 Mg Tablet, 20 MG PO HS, TAB 09/20/24 Aspirin (ASPIRIN 81MG CHEW TAB) 81 Mg Tab.chew, 81 MG PO DAILY, TAB.CHEW 09/20/24 RENETTA GONZALEZ MD Sep 20, 2024 12:59
--- NOTE | 2024-09-20 14:10 | NUR ---
DCP CM SPOKE TO PT ASSESSMENT DONE. PATIENT IS INDEPENDENT PRIOR TO ADMISSION, LIVES AT HOME WITH HER PARTNER. DENIES ANY EQUIPMENT/SERVICES. FEELS SAFE TO GO BACK HOME, STILL WORK AND DRIVE, USES [facility] ON [address] [place] [address] FOR MEDS. DCP HOME ONCE STABLE. CM TO CONTINUE TO FOLLOW UP. Addendum: 09/20/24 at 1412 by JEFERSON CHAVEZ LVN CM Amended: Links added.
[2024-09-20] MEDS: NYSTatin 15 GM POWDER TP SCH (14:57)
[2024-09-20] MEDS: atorVAStatin 20 MG TABLET PO SCH (20:00)
[2024-09-20] MEDS: ENOXAPARIN SODIUM 40 MG/0.4 ML SYRINGE SQ SCH (20:01)
--- NOTE | 2024-09-20 20:05 | NUR ---
MEDS SHIFT ASSESSMENT DONE, PLEASE REFER TO CHART. DUE MEDS ADMINISTERED, TOLERATED WELL. KEPT RESTED AND COMFORTABLE. CALL LIGHT WITHIN EACH. FAMILY AT BEDSIDE.
[2024-09-20] MEDS ORDERED: NYSTatin 15 GM POWDER TP SCH (21:00)
--- NOTE | 2024-09-20 21:05 | CONS ---
CONSULTATION NOTE REQUESTING PHYSICIAN: Dr. David Ndiaye. REASON FOR CONSULTATION: Right fifth toe osteomyelitis. HISTORY OF PRESENT ILLNESS: A 44-year-old female with history of morbid obesity, hypertension, diabetes mellitus, presented to the hospital with right foot pain, swelling and redness. The patient noticed ulcer to the right fifth toe. A wound VAC has been going on for about 6 weeks. She denied fever or chills. No trauma or fall. X-ray has been done in the Emergency Room shows osteomyelitis. The patient has been started on vancomycin, cefepime, and Flagyl. Arterial Dopplers shows abnormal monophasic flow. The patient has been evaluated by Cardiology. PAST MEDICAL HISTORY: * Diabetes mellitus. * Morbid obesity. * Hypertension. * Dyslipidemia. * Psoriasis. * Peripheral vascular disease. * Left foot osteomyelitis. PAST SURGICAL HISTORY: * Left fourth toe amputation. * Peripheral angiogram. ALLERGIES: No known drug allergy. CURRENT MEDICATIONS: Reviewed. SOCIAL HISTORY: No alcohol, tobacco, or illicit drug use. FAMILY HISTORY: Positive for diabetes mellitus. REVIEW OF SYSTEMS: CONSTITUTIONAL: No fever or chills. No weight loss. EYES: No eye pain. No photophobia or diplopia. HENT: No sore throat. No rhinorrhea. No earache. NECK: No neck pain or neck swelling. RESPIRATORY: No cough. No hemoptysis or pleuritic pain. CARDIOVASCULAR: No chest pain. No palpitation or orthopnea. GASTROINTESTINAL: Denied nausea, vomiting, or abdominal pain. GENITOURINARY: No dysuria, urgency, no frequency. CENTRAL NERVOUS SYSTEM: No headache, dyspnea, or slurred speech. PSYCHIATRY: No depression. No suicidal ideation. MUSCULOSKELETAL: Positive for right fifth toe ulcer. PHYSICAL EXAMINATION: GENERAL: A young female, awake. VITAL SIGNS: Temperature 98.3, pulse 107, respiratory rate 18, BP 98/61. EYES: No icterus. Pupils equal and reactive. HENT: No oral thrush seen. Moist oral mucosa. BACK: Supple. No JVD or thyromegaly. LUNGS: Good air entry. No rales, no rhonchi. CARDIOVASCULAR: S1, S2 regular. No murmurs heard. ABDOMEN: Morbidly obese, soft, nontender. Bowel sound is present. CENTRAL NERVOUS SYSTEM: Awake, alert, oriented x 3. No focal deficits. SKIN: No rashes, no itchiness. LYMPHATIC: There is right inguinal lymphadenopathy. BACK: No deformity, no pressure ulcer. EXTREMITIES: ____ drainage involving the right fifth toe. There is surrounding erythema. LABORATORY DATA: Sodium 142, potassium 4.1, BUN 15, creatinine 0.7. WBC 10.1, hemoglobin 11.5, platelet 227. RADIOLOGY: Right foot x-ray shows fifth toe osteomyelitis. Arterial Doppler reported as normal mucosa. ASSESSMENT: A 44-year-old female presenting with right foot ulcer and pain: Current problems include: * ____ foot diabetic ulcer. * Right fifth toe osteomyelitis. * Morbid obesity. * Peripheral vascular disease. * Hypertension. * Diabetes mellitus. PLAN: * Follow up cultures. * Continue vancomycin. * Continue cefepime. * Continue wound care. * Continue antidiabetic. * Continue nutritional support. * Monitor electrolyte. * The patient will be followed closely. Thank you for allowing me to participate in the care of this patient. TID: [id number] RECEIPT: [id number]
--- NOTE | 2024-09-20 22:08 | HMCIMG ---
US VENOUS DOPPLER BILATERAL HISTORY: DVT COMPARISON: None TECHNIQUE: Bilateral lower extremity venous Doppler ultrasound study was performed. FINDINGS: The common femoral, femoral, popliteal, and posterior tibial veins are visualized. Normal flow with augmentation and compressibilities are demonstrated. The greater saphenous veins are also seen and grossly patent. IMPRESSION: 1. No evidence of deep venous thrombosis is seen.
--- NOTE | 2024-09-20 22:10 | HMCIMG ---
US ARTERIAL UNILA LOW EXT DUPL HISTORY: Pain COMPARISON: None TECHNIQUE: The lower extremity arterial Doppler ultrasound study was performed. FINDINGS: Normal triphasic arterial waveforms are noted in the left common femoral, deep femoral, superficial femoral, popliteal, posterior tibial and dorsalis pedal arteries. On the left, the peak systolic velocity of the common femoral artery is 115 cm/s, the proximal femoral artery is 102 cm/s, the mid femoral artery is 111 cm/s, the distal femoral artery is 100 cm/s, the proximal popliteal artery is 58 cm/s, the distal popliteal artery is 72 cm/s, the anterior tibial artery is 64 cm/s, the posterior tibial artery artery is 91 cm/s,and the dorsalis pedal artery is 86 cm/s. IMPRESSION: 1. Atherosclerotic disease. 2. Otherwise normal triphasic arterial waveforms noted of the left lower extremity artery system.
[2024-09-21] VITALS (8 sets, daily range): BP systolic 99–135; BP diastolic 62–75; PULSE 80–92; RESP 18–19; TEMP 97.8–99.1; O2SAT 98–99
[2024-09-21 05:52] LABS: BASOPHILS # (AUTO) 0.01 K/uL (0.00-0.20); BASOPHILS % (AUTO) 0.1 % (0.0-5.0); HEMATOCRIT 33.8 % (36-48); IMMATURE GRANULOCYTE ABSOLUTE 0.03 K/uL (0-1); LYMPHOCYTES % (AUTO) 27.7 % (21.0-51.0); MEAN CORPUSCULAR HEMOGLOBIN 29.1 pg (27.0-33.0); MEAN CORPUSCULAR HGB CONC 32.2 g/dL (32.0-36.0); MEAN CORPUSCULAR VOLUME 90.1 fL (79-99); MONOCYTES # (AUTO) 0.5 K/uL (0.1-1.0); MONOCYTES % (AUTO) 7.7 % (3.0-13.0); NEUTROPHILS # (AUTO) 4.5 K/uL (1.8-7.7); NEUTROPHILS % (AUTO) 64.1 % (40.0-77.0); PLATELET COUNT (AUTO) 226 K/uL (130-400); RED BLOOD CELL COUNT(AUTO) 3.75 MIL/uL (4.00-5.50); RED CELL DISTRIBUTION WIDTH 13.4 % (11.0-15.5); WHITE BLOOD COUNT (AUTO) 7.1 K/uL (4.8-10.8)
[2024-09-21 05:59] LABS: ALBUMIN 2.4 g/dL (3.5-5.0); BILIRUBIN,TOTAL 0.2 mg/dL (0.2-1.0); CREATININE 0.6 mg/dL (0.5-1.0); MAGNESIUM 1.6 mg/dL (1.80-2.40); POTASSIUM 4.3 mmol/L (3.5-5.1); TOTAL PROTEIN, SERUM 5.1 g/dL (6.0-8.3)
--- NOTE | 2024-09-21 06:19 | NUR ---
PRIYA PT SLEPT AT INTERVALS DURING THE SHIFT. DENIES ANY CONCERNS AT THIS TIME. NO DISTRESS NOTED. NEW IVF BAG HUNG. MG REPLACEMENT INFUSED PER PROTOCOL. KEPT RESTED IN BED. CALL LIGHT WITHIN REACH. FOR MORE CARE.
[2024-09-21] MEDS: ASPIRIN 81MG CHEW TAB PO SCH (08:30)
--- NOTE | 2024-09-21 12:22 | PN ---
[facility] PROGRESS NOTE Date of Service: Sep 21, 2024 Time of Service: 12:[address] Mahmood SUBJECTIVE: [ ] 09/19/24 44 year old female with Hx of DM II (Diagnosed 18 years ago), Obesity, HLD, Psoriasis who presented as a transfer from [facility] for further evaluation of pain, redness and sweeling of the right foot with no healing infected ulcer of the 5th toe of the right foot. Patient reports that she has non healing ulcer involving the 5th toe ongoing for the past 6 weeks. Over the last several days, patient reports having worsening pain and increased drainage from the wound. She has also noticed progressive redness involving the right foot as well. She reports having subjective fevers and chills. 09/20/2024 patient is seen and examined. Waiting for consultants to evaluate; Dr Arriola will see the patient today; will follow recommendations. primary reports no events overnight 1100 Dr arriola apparently patient does not want amputation of the toe wants to attempt with antibiotics and local wound care and hyperbarics die storage clerk's we will be consulted. 09/21/24 patient was seen by nurse practitioner and physician during rounding in room 316 comfortably lying in the bed. Patient is refusing amputation with Dr. Arriola at this moment. Patient would like to proceed with antibiotic treatment 1st and if anything maybe in the future amputation. We have Infectious Disease doctor on case and we will wait at this moment for further recommendations of outpatient antibiotics IV versus POA. As per die storage clerk Patient does indeed have monophasic waveforms noted in arterial Doppler study done of the right leg there was no comparison in the left leg noted and it should be also noted that patient has had these findings on previous arterial Doppler studies done in 2021. This could definitely be a component of microvascular disease but venous insufficiency can also be playing a role if there is significant venous reflux from a superficial level or deep level which could be contributing to poor wound healing. We will order venous Dopplers on patient in addition to a left lower extremity arterial Doppler for Dr. Simpson her primary die storage clerk and cardiovascular operating room nurse to review when he sees patient tomorrow on daily rounds. At that time he will decide whether patient would benefit from formal angiography versus CT angiography and then decide on whether any venous workup should be done on an in or outpatient basis. All the labs and radiology was reviewed by NEONATOLOGIST. We will continue to monitor patient. A.m. labs REVIEW OF SYSTEMS CONSTITUTIONAL: fevers, chills, asthenia, malaise NEUROLOGICAL: Denies headache, amaurosis fugax, motor weakness, sensory deficit, vertigo/spinning sensation, gait abnormalities, or tremors. ENT: No hearing loss, otalgia, otorrhea, rhinitis, rhinorrhea, hoarseness, or sore throat. CARDIOVASCULAR: Denies any exertional angina, dyspnea on exertion, orthopnea, paroxysmal nocturnal dyspnea, palpitations, life-threatening arrhythmias, claudication. PULMONARY: Denies any shortness of breath, cough, phlegm/sputum, hemoptysis, pleuritic chest pain. SLEEP: Denies morning headaches, daytime somnolence or napping. Denies difficulty falling asleep, staying asleep, waking from sleep. Denies knowledge of snoring. GASTROINTESTINAL: Denies any type of dysphagia to either liquids or solids. Denies nausea, vomiting, pyrosis, early satiety, abdominal pain, diarrhea, constipation, or changes in stool consistency or caliber. Denies coffee-ground emesis, hematemesis, hematochezia, or melanotic stools. GENITOURINARY: Denies frequency, urgency, nocturia, hematuria or incontinence (Storage/Irritative symptoms.) Low urinary stream, straining to void, urinary intermittency or hesitancy, splitting of the voiding stream, terminal dribbling. ENDOCRINOLOGIC: Denies polyuria, polydipsia, polyphagia or heat/cold intolerances. HEMATOLOGIC: Denies thrombophilia/previous clots, or coagulopathy/bleeding disorders. ONCOLOGIC: Denies personal history of malignancy. DERMATOLOGIC: redness and swelling of the right foot, with non heling wound involving the 5th toe of the right foot PSYCHIATRIC: Denies any suicidal or homicidal ideation. Denies hallucinations. PHYSICAL EXAM GENERAL APPEARANCE: The patient is awake, alert, and oriented, in no acute cardiopulmonary distress. NEUROLOGICAL: Cranial nerves II-XII grossly intact. Motor is 5/5 in bilateral upper and lower extremities proximal to distal. No sensory deficits. HEENT: Face is symmetric. Pupils are equal and reactive. Extraocular movements are intact. NECK: Supple. No JVD. No thyromegaly. No submental, submandibular, pre- /postauricular, occipital or supraclavicular lymphadenopathy. CHEST: Normal chest expansion. No Telemetry. LUNGS: Absence of any rales, rhonchi or any wheezing. CARDIOVASCULAR: Regular. S1 and S2 normal. No appreciable rubs, murmurs or gallops. ABDOMEN: Soft, nontender, and nondistended. There is no rebound, voluntary guarding, or rigidity. : Deferred. No Donahue. EXTREMITIES: Ulcer noted of the first toe of the right foot with callus, 5th toe of the right foot with small wound noted with serosanguinous drainage with small opening, redness and swelling noted right foot noted as well. Left foot noted with prior scar of 4th toe amputation SKIN: as noted above Vital Signs (last 8hr) Date Time Temp Pulse Resp B/P (MAP) Pulse Ox O2 Delivery O2 Flow Rate FiO2 09/21/24 11:44 98.1 81 19 118/70 97 Room Air 09/21/24 08:00 98 Room Air* 0 21 09/21/24 07:54 98.1 85 19 135/75 98 Room Air LABS: Laboratory: Test 09/21/24 10:44 09/21/24 05:05 09/21/24 00:12 09/19/24 20:30 Range/Units Whole Blood Glucose 198 H 70-110 MG/DL White Blood Count 7.1 4.8-10.8 K/uL Red Blood Count 3.75 L 4.00-5.50 MIL/uL Hemoglobin 10.9 L 12.0-16.0 g/dL Hematocrit 33.8 L 36-48 % Mean Corpuscular Volume 90.1 79-99 fL Mean Corpuscular Hemoglobin 29.1 27.0-33.0 pg Mean Corpuscular Hemoglobin Concent 32.2 32.0-36.0 g/dL Red Cell Distribution Width 13.4 11.0-15.5 % Platelet Count 226 130-400 K/uL Mean Platelet Volume 10.0 7.5-10.5 fL Immature Granulocyte % (Auto) 0.4 0-1 % Neutrophils (%) (Auto) 64.1 40.0-77.0 % Lymphocytes (%) (Auto) 27.7 21.0-51.0 % Monocytes (%) (Auto) 7.7 3.0-13.0 % Eosinophils (%) (Auto) 0.0 0.0-8.0 % Basophils (%) (Auto) 0.1 0.0-5.0 % Neutrophils # (Auto) 4.5 1.8-7.7 K/uL Lymphocytes # (Auto) 2.0 1.0-4.8 K/uL Monocytes # (Auto) 0.5 0.1-1.0 K/uL Eosinophils # (Auto) 0.00 0.00-0.70 K/uL Basophils # (Auto) 0.01 0.00-0.20 K/uL Absolute Immature Granulocyte (auto 0.03 0-1 K/uL Nucleated Red Blood Cells 0.0 0.0-0.19 % Sodium Level 145 136-145 mmol/L Potassium Level 4.3 3.5-5.1 mmol/L Chloride Level 111 101-111 mmol/L Carbon Dioxide Level 27 21-32 mmol/L Blood Urea Nitrogen 17 7-18 mg/dL Creatinine 0.6 0.5-1.0 mg/dL Glomerular Filtration Rate Calc 112 >90 mL/min Random Glucose 156 H 70-105 mg/dL Total Calcium 8.1 L 8.5-10.1 mg/dL Magnesium Level 1.60 L 1.80-2.40 mg/dL Total Bilirubin 0.2 0.2-1.0 mg/dL Aspartate Amino Transf (AST/SGOT) 11 10-37 U/L Alanine Aminotransferase (ALT/SGPT) 16 12-78 U/L Alkaline Phosphatase 122 50-136 U/L C-Reactive Protein, Quantitative 19.70 H 0.5-3.0 mg/L Total Protein 5.1 L 6.0-8.3 g/dL Albumin 2.4 L 3.5-5.0 g/dL Procalcitonin < 0.05 L 0.05-0.5 ng/mL Vancomycin Level Trough 19.5 10.0-20.0 UG/ML Erythrocyte Sedimentation Rate 21 H 0-20 MM/HR Prothrombin Time 11.3 9.6-11.6 SEC Prothromb Time International Ratio 1.01 0.85-1.15 Activated Partial Thromboplast Time 30.1 26.3-35.5 SEC Hemoglobin A1c 7.9 H 4.0-6.0 % Estimated Average Glucose (eAG) 180 H 70-126 mg/dL Lactic Acid Level 0.9 0.8-2.5 mmol/L Total Creatine Kinase 47 21-232 U/L Thyroid Stimulating Hormone (TSH) 4.54 H 0.36-3.74 uIU/mL Current Medications Medications (Trade) Dose Ordered Sig/Ramez Route PRN Reason Start Time Stop Time Status Last Admin Dose Admin Acetaminophen (TYLenol 500MG TAB) 500 mg Q6H PRN PO MILD PAIN (1-3) 09/19/24 20:00 10/19/24 19:59 Aspirin (Aspirin 81mg Chew Tab) 81 mg DAILY PO 09/21/24 09:00 10/21/24 08:59 Atorvastatin Calcium (LIPItor 20MG) 20 mg HS PO 09/20/24 21:00 10/20/24 20:59 09/20/24 20:00 20 MG Cadexomer Iodine (Iodosorb Gel 40gm) 1 APPL ONCE TP 09/20/24 11:00 09/20/24 18:08 DC 09/20/24 12:23 1 APPL Cefepime HCl (MAXipime 2 gm vial) 2 gm Q12H IVPB 09/19/24 22:00 09/29/24 21:59 09/21/24 11:24 2 GM Dextrose (D50w) 50 ml AD PRN IV HYPOGLYCEMIA PROTOCOL 09/19/24 20:30 10/19/24 20:29 Enoxaparin Sodium (Lovenox) 40 mg HS SQ 09/20/24 21:00 10/20/24 20:59 09/20/24 20:01 40 MG Glucagon (Glucagon 1mg Kit) 1 mg AD PRN IM HYPOGLYCEMIA PROTOCOL 09/19/24 20:30 10/19/24 20:29 Insulin Glargine (LANtus 100 UNITS/ML 10 ML VIAL) 10 units HS SQ 09/19/24 21:00 10/19/24 20:59 09/20/24 20:06 10 UNITS Insulin Human Regular (humuLIN R 100 UNIT/ML 3ML) INSULIN SLIDING SCAL... ACHS SQ 09/19/24 21:00 10/19/24 20:59 09/21/24 11:40 2 UNIT Lactulose (Constulose 20gm/ 30ml Udcup) 20 gm BID PRN PO CONSTIPATION 09/20/24 10:00 10/20/24 09:59 Magnesium Sulfate 50 ml @ 0 mls/hr PROTOCOL IV 09/19/24 22:30 10/19/24 22:29 09/21/24 06:19 25 MLS/HR Metronidazole/ Sodium Chloride 100 ml @ 100 mls/hr Q8H6 IVPB 09/20/24 00:00 09/30/24 00:00 09/21/24 05:07 100 MLS/HR Morphine Sulfate (morPHINE 2MG SYG) 2 mg Q6H PRN IVP SEVERE PAIN (7-10) 09/19/24 20:00 09/26/24 19:59 Nystatin (NystOP 15 GM POWDER) 1 APPL BID TP 09/20/24 15:00 10/20/24 14:59 09/21/24 08:30 1 APPL Nystatin (NystOP 15 GM POWDER) 1 APPL BID TP 09/20/24 21:00 09/20/24 14:54 DC Ondansetron HCl (zoFRAN 4MG INJ) 4 mg Q6H PRN IVP NAUSEA/VOMITING 09/19/24 20:30 10/19/24 20:29 Potassium Chloride 100 ml @ 100 mls/hr AD PRN IV POTASSIUM PROTOCOL 09/20/24 10:30 10/20/24 10:29 Potassium Chloride (K-Dur/Klor-Con 20meq) 20 meq AD PRN PO POTASSIUM PROTOCOL 09/20/24 10:30 10/20/24 10:29 Potassium Chloride (KCl 10% Elixir 20meq/15ml) 20 meq AD PRN PO POTASSIUM PROTOCOL 09/20/24 10:30 10/20/24 10:29 Sodium Chloride 1,000 ml @ 80 mls/hr [id number] IV 09/19/24 20:00 10/19/24 19:59 09/21/24 06:02 80 MLS/HR Vancomycin HCl 250 ml @ 125 mls/hr Q8H IV 09/20/24 01:00 10/11/24 00:59 09/21/24 08:27 125 MLS/HR Vancomycin HCl (Vancomycin Protocol) 1 each AD IV 09/19/24 20:30 10/03/24 20:29 DIAGNOSTICS / RADIOLOGY: [ ] ASSESSMENT: Acute osteomyelitis of the 5th toe of PIP joint, right foot, POA Non healing diabetic ulcer of the 5th toe of right foot, POA Progressive cellulitis of the right foot, POA Chronic diabetic ulcer of the 1st of the right foot, POA Underlying Hx of DM II, POA Diabetic Neuropathy, POA Hx of Psoriasis, POA HLD, POA Obesity, POA Hx of Hypotension, POA 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 Normal saline at 80 mL/hour to continue Pending further recommendations of outpatient antibiotics per ID Consultants scratch polisher no surgical intervention as per patient wants to attempt with antibiotics and local wound care and hyperbarics., Asper die storage clerk patient would benefit from formal angiography versus CT angiography and then decide on whether any venous workup should be done on an in or outpatient basis. Antibiotics: Vanc/Cefepime/flagyl we will follow Infectious Disease recommendations Wound cultures in process Test: Arterial ultrasound pending results. Labs cbc, cmp, mag+ a.m. and inflammatory markers every other day. Replace electrolytes as needed as per protocol to keep potassium above 4.0 magnesium 2.0. Continue a.c. HS monitoring with sliding scale coverage Home medication reviewed and reconciled We will continue with local wound care per Podiatry, nonweightbearing left foot. Supportive measures: DVT ppx, GI ppx all questions answered This document was generated in part using voice recognition software, occasional wrong word or sound alike substitutions may have occurred due to the inherent limitations of voice recognition software. Read the chart carefully and recognize using context, where the substitutions have occurred. Although every effort was made to edit the content, food supervisor and typing errors may occur ATTESTATION BY PHYSICIAN I have seen and examined the patient. I reviewed the documentation, medical decision making, and treatment plan as noted by the mid-level provider above. I agree with the findings and plan of care. Sonia Mahmood MD, KATARZYNA B SANIPRACTIC PHYSICIAN Sep 21, 2024 12:22
--- NOTE | 2024-09-21 14:41 | NUR ---
[facility] Consult: Patient assessed by wound healing team. See wound assessment. Assessment and recommendations provided to primary nurse. Education provided. Wound care done. Addendum: 09/22/24 at 1140 by MARTINA RICE RN RN/ Amended: Links added.
[2024-09-21 16:13] LABS: INR 1.02 (0.85-1.15); PROTHROMBIN TIME 11.4 SEC (9.6-11.6)
[2024-09-21 16:14] LABS: PARTIAL THROMBOPLASTIN TIME 29.1 SEC (26.3-35.5)
--- NOTE | 2024-09-21 18:38 | PN ---
INFECTIOUS DISEASE PROGRESS NOTE Date of Service: Sep 21, 2024 SUBJECTIVE: This is a 44-year-old female patient who was admitted to the hospital for chief complaint of pain, redness and swelling to the right foot. Patient was seen and examined at bedside in room 316. Patient is awake, alert and oriented x3. Bloody drainage observed from the wound on the right 5th toe. Right foot x-ray findings of right 5th proximal interphalangeal joint osteomyelitis. Preliminary right foot wound culture is growing Gram-positive cocci in clusters/Staphylococcus aureus. Patient continues on vancomycin, cefepime and metronidazole IV. No fever, temperature 98.1 and a WBC of 7.1. Patient will need long-term IV antibiotics. Will place PICC line and we will follow up on the final wound culture results. PHYSICAL EXAM EYES: Anicteric. Pupils equal and reactive. HENT: No oral thrush seen, moist Oral mucosa. NECK: Supple, no JVD or thyromegaly. LUNGS: Good air entry. No rales, no rhonchi. CARDIOVASCULAR: S1, S2 regular. No murmur heard. ABDOMEN: Soft, non tender, bowel sounds present, no organomegaly. CENTRAL NERVOUS SYSTEM: Awake, alert, oriented x 3. SKIN: No rashes, no swelling. LYMPHATICS: No peripheral lymphadenopathy. MUSCULOSKELETAL: No joint swelling, erythema or tenderness. EXTREMITIES: No cyanosis or clubbing. Right 5th toe diabetic ulcer. BACK: No deformity, no pressure ulcer. GENITOURINARY: No dysuria or hematuria. Vital Sign (Last 12 Hours) 09/21/24 09/21/24 09/21/24 09/21/24 07:54 08:00 11:44 16:25 Temp 98.1 98.1 97.9 Pulse 85 81 80 Resp 19 19 19 B/P (MAP) 135/75 118/70 127/75 Pulse Ox 98 98 97 99 O2 Delivery Room Air Room Air* Room Air Room Air O2 Flow Rate 0 FiO2 21 Intake & Output (last 24hrs) 09/20/24 09/20/24 09/21/24 14:59 22:59 06:59 Intake Total 240 ml 390 ml 872.0 ml Balance 240 ml 390 ml 872.0 ml LABS: Laboratory: Test 09/21/24 15:48 09/21/24 15:26 09/21/24 05:05 09/21/24 00:12 Range/Units Prothrombin Time 11.4 9.6-11.6 SEC Prothromb Time International Ratio 1.02 0.85-1.15 Activated Partial Thromboplast Time 29.1 26.3-35.5 SEC Whole Blood Glucose 121 H 70-110 MG/DL White Blood Count 7.1 4.8-10.8 K/uL Red Blood Count 3.75 L 4.00-5.50 MIL/uL Hemoglobin 10.9 L 12.0-16.0 g/dL Hematocrit 33.8 L 36-48 % Mean Corpuscular Volume 90.1 79-99 fL Mean Corpuscular Hemoglobin 29.1 27.0-33.0 pg Mean Corpuscular Hemoglobin Concent 32.2 32.0-36.0 g/dL Red Cell Distribution Width 13.4 11.0-15.5 % Platelet Count 226 130-400 K/uL Mean Platelet Volume 10.0 7.5-10.5 fL Immature Granulocyte % (Auto) 0.4 0-1 % Neutrophils (%) (Auto) 64.1 40.0-77.0 % Lymphocytes (%) (Auto) 27.7 21.0-51.0 % Monocytes (%) (Auto) 7.7 3.0-13.0 % Eosinophils (%) (Auto) 0.0 0.0-8.0 % Basophils (%) (Auto) 0.1 0.0-5.0 % Neutrophils # (Auto) 4.5 1.8-7.7 K/uL Lymphocytes # (Auto) 2.0 1.0-4.8 K/uL Monocytes # (Auto) 0.5 0.1-1.0 K/uL Eosinophils # (Auto) 0.00 0.00-0.70 K/uL Basophils # (Auto) 0.01 0.00-0.20 K/uL Absolute Immature Granulocyte (auto 0.03 0-1 K/uL Nucleated Red Blood Cells 0.0 0.0-0.19 % Sodium Level 145 136-145 mmol/L Potassium Level 4.3 3.5-5.1 mmol/L Chloride Level 111 101-111 mmol/L Carbon Dioxide Level 27 21-32 mmol/L Blood Urea Nitrogen 17 7-18 mg/dL Creatinine 0.6 0.5-1.0 mg/dL Glomerular Filtration Rate Calc 112 >90 mL/min Random Glucose 156 H 70-105 mg/dL Total Calcium 8.1 L 8.5-10.1 mg/dL Magnesium Level 1.60 L 1.80-2.40 mg/dL Total Bilirubin 0.2 0.2-1.0 mg/dL Aspartate Amino Transf (AST/SGOT) 11 10-37 U/L Alanine Aminotransferase (ALT/SGPT) 16 12-78 U/L Alkaline Phosphatase 122 50-136 U/L C-Reactive Protein, Quantitative 19.70 H 0.5-3.0 mg/L Total Protein 5.1 L 6.0-8.3 g/dL Albumin 2.4 L 3.5-5.0 g/dL Procalcitonin < 0.05 L 0.05-0.5 ng/mL Vancomycin Level Trough 19.5 10.0-20.0 UG/ML Test 09/19/24 20:30 Range/Units Erythrocyte Sedimentation Rate 21 H 0-20 MM/HR Hemoglobin A1c 7.9 H 4.0-6.0 % Estimated Average Glucose (eAG) 180 H 70-126 mg/dL Lactic Acid Level 0.9 0.8-2.5 mmol/L Total Creatine Kinase 47 21-232 U/L Thyroid Stimulating Hormone (TSH) 4.54 H 0.36-3.74 uIU/mL DIAGNOSTICS / RADIOLOGY: PATIENT: ALMA GUZMAN V MR#: [id number] : 1980 SEX: F AGE: 44 LOCATION: [facility] ORDER 53 STATUS: ADM IN REPORT#: [id number] SERVICE 50 REASON: foot ulcer, 5th toe, assess for osteomyelitis, 1st toe with ulcer as well ORDERING PHYSICIAN: CONSTANCE PICKARD MD PROCEDURE: FT 3VW RT - FOOT COMP 3+VWS RT RIGHT FOOT RADIOGRAPHS - 3 VIEWS INDICATION: Fifth toe ulcer COMPARISON: None FINDINGS: AP, lateral, and oblique views. Erosive changes and lateral cortical fragmentation at the fifth proximal interphalangeal joint. No evidence for periosteal reaction, cortical erosive changes, or any abnormal subperiosteal bone resorption. Midfoot alignment is well maintained. Subcentimeter plantar calcaneal spur. IMPRESSION: Findings suggesting fifth proximal interphalangeal joint osteomyelitis. DICTATED BY: WILL FAN MD DATE: 09/19/242024 ASSESSMENT: Right 5th toe diabetic ulcer with osteomyelitis. Peripheral vascular disease. Diabetes mellitus. Obesity. PLAN: Continue vancomycin per pharmacy protocol. Continue cefepime IV. Continue metronidazole IV. Continue wound care as recommended by director speech and hearing. Patient will need long-term IV antibiotics. Place PICC line. Continue pain management. We will follow up on the final wound culture results. Continue monitoring glucose levels. This case was reviewed and discussed with my supervising physician and the above assessment and plan was formulated and agreed upon. ATTESTATION BY PHYSICIAN I have seen and examined the patient. I reviewed the documentation, medical decision making, and treatment plan as noted by the mid-level provider above. I agree with the findings and plan of care. BEBE VIGIL MD, MIRTA L CHEMIST ASSISTANT Sep 21, 2024 18:38
[2024-09-22] VITALS (14 sets, daily range): BP systolic 116–139; BP diastolic 70–95; PULSE 78–86; RESP 18; TEMP 97.5–98.6; O2SAT 98–99
[2024-09-22 05:15] LABS: BASOPHILS # (AUTO) 0.01 K/uL (0.00-0.20); BASOPHILS % (AUTO) 0.2 % (0.0-5.0); IMMATURE GRANULOCYTE ABSOLUTE 0.03 K/uL (0-1); LYMPHOCYTES # (AUTO) 1.4 K/uL (1.0-4.8); LYMPHOCYTES % (AUTO) 23.3 % (21.0-51.0); MEAN CORPUSCULAR HGB CONC 32.1 g/dL (32.0-36.0); MEAN CORPUSCULAR VOLUME 90.4 fL (79-99); MONOCYTES # (AUTO) 0.4 K/uL (0.1-1.0); MONOCYTES % (AUTO) 6.7 % (3.0-13.0); NEUTROPHILS # (AUTO) 4.3 K/uL (1.8-7.7); NEUTROPHILS % (AUTO) 69.3 % (40.0-77.0); PLATELET COUNT (AUTO) 218 K/uL (130-400); RED BLOOD CELL COUNT(AUTO) 3.76 MIL/uL (4.00-5.50); RED CELL DISTRIBUTION WIDTH 13.4 % (11.0-15.5); WHITE BLOOD COUNT (AUTO) 6.2 K/uL (4.8-10.8)
[2024-09-22 05:32] LABS: INR 1.04 (0.85-1.15); PROTHROMBIN TIME 11.6 SEC (9.6-11.6)
[2024-09-22 05:42] LABS: ALBUMIN 2.5 g/dL (3.5-5.0); BILIRUBIN,TOTAL 0.3 mg/dL (0.2-1.0); CREATININE 0.6 mg/dL (0.5-1.0); MAGNESIUM 1.6 mg/dL (1.80-2.40); POTASSIUM 3.7 mmol/L (3.5-5.1); TOTAL PROTEIN, SERUM 5.8 g/dL (6.0-8.3)
--- NOTE | 2024-09-22 10:55 | PN ---
Poor healing ulcer x2 right foot Diabetic angiopathy Possible venous insufficiency and May-Thurner syndrome Psoriasis Vitals/Labs Vital Signs Date Time Temp Pulse Resp B/P (MAP) Pulse Ox O2 Delivery O2 Flow Rate FiO2 09/22/24 08:08 97.5 81 18 124/71 98 Room Air 09/22/24 08:00 0 21 Laboratory Tests 09/22/24 04:32 IMPRESSION: 1. No evidence of deep venous thrombosis is seen. DICTATED BY: EREN CONTE MD DATE: 09/20/242204 LLE IMPRESSION: 1. Atherosclerotic disease. 2. Otherwise normal triphasic arterial waveforms noted of the left lower extremity artery system. DICTATED BY: EREN CONTE MD DATE: 09/20/242204 IMPRESSION: Monophasic flow along the right posterior tibial, distal anterior tibial, and dorsalis pedis arteries, without evidence for high-grade flow-rate limiting stenosis. Parameters as reported. DICTATED BY: WILL FAN MD DATE: 09/20/24956 IMPRESSION: Findings suggesting fifth proximal interphalangeal joint osteomyelitis. DICTATED BY: WILL FAN MD DATE: 09/19/242024 Medications Current Medications Sodium Chloride 1,000 ml @ 80 mls/hr [id number] IV Last administered on 09/21/24at 21:40; Start 09/19/24 at 20:00; Stop 10/19/24 at 19:59 Acetaminophen 500 mg Q6H PRN PO; Start 09/19/24 at 20:00; Stop 10/19/24 at 19:59 Insulin Human Regular INSULIN SLIDING SCAL... ACHS SQ Last administered on 09/22/24at 06:22; Start 09/19/24 at 21:00; Stop 10/19/24 at 20:59 Morphine Sulfate 2 mg Q6H PRN IVP; Start 09/19/24 at 20:00; Stop 09/26/24 at 19:59 Vancomycin HCl 1 each AD IV; Start 09/19/24 at 20:30; Stop 10/03/24 at 20:29 Cefepime HCl 2 gm Q12H IVPB Last administered on 09/22/24at 09:17; Start 09/19/24 at 22:00; Stop 09/29/24 at 21:59 Insulin Glargine 10 units HS SQ Last administered on 09/21/24at 20:49; Start 09/19/24 at 21:00; Stop 10/19/24 at 20:59 Dextrose 50 ml AD PRN IV; Start 09/19/24 at 20:30; Stop 10/19/24 at 20:29 Glucagon 1 mg AD PRN IM; Start 09/19/24 at 20:30; Stop 10/19/24 at 20:29 Ondansetron HCl 4 mg Q6H PRN IVP; Start 09/19/24 at 20:30; Stop 10/19/24 at 20:29 Sodium Chloride 500 ml @ 0 mls/hr ONCE ONCE IV Last administered on 09/19/24at 20:30; Start 09/19/24 at 20:30; Stop 09/19/24 at 20:36; Status DC Metronidazole/ Sodium Chloride 100 ml @ 100 mls/hr Q8H6 IVPB Last administered on 09/22/24at 05:21; Start 09/20/24 at 00:00; Stop 09/30/24 at 00:00 Vancomycin HCl 250 ml @ 125 mls/hr Q8H IV Last administered on 09/22/24at 00:30; Start 09/20/24 at 01:00; Stop 09/22/24 at 08:38; Status DC Magnesium Sulfate 50 ml @ 0 mls/hr PROTOCOL IV Last administered on 09/22/24at 06:23; Start 09/19/24 at 22:30; Stop 10/19/24 at 22:29 Lactulose 20 gm BID PRN PO; Start 09/20/24 at 10:00; Stop 10/20/24 at 09:59 Aspirin 81 mg DAILY PO Last administered on 09/22/24at 09:17; Start 09/21/24 at 09:00; Stop 10/21/24 at 08:59 Atorvastatin Calcium 20 mg HS PO Last administered on 09/21/24at 20:48; Start 09/20/24 at 21:00; Stop 10/20/24 at 20:59 Potassium Chloride 100 ml @ 100 mls/hr AD PRN IV; Start 09/20/24 at 10:30; Stop 10/20/24 at 10:29 Potassium Chloride 20 meq AD PRN PO; Start 09/20/24 at 10:30; Stop 10/20/24 at 10:29 Potassium Chloride 20 meq AD PRN PO; Start 09/20/24 at 10:30; Stop 10/20/24 at 10:29 Cadexomer Iodine 1 APPL ONCE TP Last administered on 09/20/24at 12:23; Start 09/20/24 at 11:00; Stop 09/20/24 at 18:08; Status DC Nystatin 1 APPL BID TP; Start 09/20/24 at 21:00; Stop 09/20/24 at 14:54; Status DC Nystatin 1 APPL BID TP Last administered on 09/22/24at 09:21; Start 09/20/24 at 15:00; Stop 10/20/24 at 14:59 Enoxaparin Sodium 40 mg HS SQ Last administered on 09/21/24at 20:49; Start 09/20/24 at 21:00; Stop 10/20/24 at 20:59 Vancomycin HCl 250 ml @ 125 mls/hr Q8H IV; Start 09/22/24 at 17:00; Stop 10/11/24 at 00:59 WAYNE BETH MD Sep 22, 2024 10:55
--- NOTE | 2024-09-22 11:27 | PN ---
[facility] PROGRESS NOTE Date of Service: Sep 22, 2024 Time of Service: 11:27 SUBJECTIVE: [ ] 44 year old female with Hx of DM II (Diagnosed 18 years ago), Obesity, HLD, Psoriasis who presented as a transfer from [facility] ER and admitted to the medical floor with diagnosis of suspected acute osteomyelitis of right 5th toe, nonhealing diabetic ulcer of the 5th toe, progressive cellulitis of the right foot. Dr. Jean-Baptiste was consulted. Recommended MRI. Suspicious for osteomyelitis. Podiatry recommends amputation, patient has refused. Ultrasound arterial Dopplers of lower extremities show atherosclerotic disease, with the right side showing monophasic flow along the right posterior tibial, distal anterior tibial and dorsalis pedis arteries without evidence of high-grade flow rate limiting stenosis. 09/22/2024 today at bedside evaluation patient was found alert and oriented x3. latest vitals are stable. CBC and CMP are stable. Id recommends PICC line and long-term IV [facility]. Case management consulted. This morning Dr. Simpson recommended peripheral angiography RLE with possible P CTA and/or possible arthrectomy. She was kept NPO after breakfast for procedure later today. Discussed with primary nurse. REVIEW OF SYSTEMS CONSTITUTIONAL: fevers, chills, asthenia, malaise NEUROLOGICAL: Denies headache, amaurosis fugax, motor weakness, sensory deficit, vertigo/spinning sensation, gait abnormalities, or tremors. ENT: No hearing loss, otalgia, otorrhea, rhinitis, rhinorrhea, hoarseness, or sore throat. CARDIOVASCULAR: Denies any exertional angina, dyspnea on exertion, orthopnea, paroxysmal nocturnal dyspnea, palpitations, life-threatening arrhythmias, claudication. PULMONARY: Denies any shortness of breath, cough, phlegm/sputum, hemoptysis, pleuritic chest pain. SLEEP: Denies morning headaches, daytime somnolence or napping. Denies difficulty falling asleep, staying asleep, waking from sleep. Denies knowledge of snoring. GASTROINTESTINAL: Denies any type of dysphagia to either liquids or solids. Denies nausea, vomiting, pyrosis, early satiety, abdominal pain, diarrhea, constipation, or changes in stool consistency or caliber. Denies coffee-ground emesis, hematemesis, hematochezia, or melanotic stools. GENITOURINARY: Denies frequency, urgency, nocturia, hematuria or incontinence (Storage/Irritative symptoms.) Low urinary stream, straining to void, urinary intermittency or hesitancy, splitting of the voiding stream, terminal dribbling. ENDOCRINOLOGIC: Denies polyuria, polydipsia, polyphagia or heat/cold intolerances. HEMATOLOGIC: Denies thrombophilia/previous clots, or coagulopathy/bleeding disorders. ONCOLOGIC: Denies personal history of malignancy. DERMATOLOGIC: redness and swelling of the right foot, with non heling wound involving the 5th toe of the right foot PSYCHIATRIC: Denies any suicidal or homicidal ideation. Denies hallucinations. PHYSICAL EXAM GENERAL APPEARANCE: The patient is awake, alert, and oriented, in no acute cardiopulmonary distress. NEUROLOGICAL: Cranial nerves II-XII grossly intact. Motor is 5/5 in bilateral upper and lower extremities proximal to distal. No sensory deficits. HEENT: Face is symmetric. Pupils are equal and reactive. Extraocular movements are intact. NECK: Supple. No JVD. No thyromegaly. No submental, submandibular, pre- /postauricular, occipital or supraclavicular lymphadenopathy. CHEST: Normal chest expansion. No Telemetry. LUNGS: Absence of any rales, rhonchi or any wheezing. CARDIOVASCULAR: Regular. S1 and S2 normal. No appreciable rubs, murmurs or gallops. ABDOMEN: Soft, nontender, and nondistended. There is no rebound, voluntary guarding, or rigidity. : Deferred. No Donahue. EXTREMITIES: Ulcer noted of the first toe of the right foot with callus, 5th toe of the right foot with small wound noted with serosanguinous drainage with small opening, redness and swelling noted right foot noted as well. Left foot noted with prior scar of 4th toe amputation SKIN: as noted above Vital Signs (last 8hr) Date Time Temp Pulse Resp B/P (MAP) Pulse Ox O2 Delivery O2 Flow Rate FiO2 09/22/24 08:08 97.5 81 18 124/71 98 Room Air 09/22/24 08:00 99 Room Air* 0 21 09/22/24 04:00 98.1 82 18 116/70 97 Room Air LABS: Laboratory: Test 09/22/24 11:12 09/22/24 07:48 09/22/24 04:32 09/21/24 15:48 Range/Units Whole Blood Glucose 174 H 70-110 MG/DL Vancomycin Level Trough 20.5 H 10.0-20.0 UG/ML White Blood Count 6.2 4.8-10.8 K/uL Red Blood Count 3.76 L 4.00-5.50 MIL/uL Hemoglobin 10.9 L 12.0-16.0 g/dL Hematocrit 34.0 L 36-48 % Mean Corpuscular Volume 90.4 79-99 fL Mean Corpuscular Hemoglobin 29.0 27.0-33.0 pg Mean Corpuscular Hemoglobin Concent 32.1 32.0-36.0 g/dL Red Cell Distribution Width 13.4 11.0-15.5 % Platelet Count 218 130-400 K/uL Mean Platelet Volume 9.6 7.5-10.5 fL Immature Granulocyte % (Auto) 0.5 0-1 % Neutrophils (%) (Auto) 69.3 40.0-77.0 % Lymphocytes (%) (Auto) 23.3 21.0-51.0 % Monocytes (%) (Auto) 6.7 3.0-13.0 % Eosinophils (%) (Auto) 0.0 0.0-8.0 % Basophils (%) (Auto) 0.2 0.0-5.0 % Neutrophils # (Auto) 4.3 1.8-7.7 K/uL Lymphocytes # (Auto) 1.4 1.0-4.8 K/uL Monocytes # (Auto) 0.4 0.1-1.0 K/uL Eosinophils # (Auto) 0.00 0.00-0.70 K/uL Basophils # (Auto) 0.01 0.00-0.20 K/uL Absolute Immature Granulocyte (auto 0.03 0-1 K/uL Nucleated Red Blood Cells 0.0 0.0-0.19 % Prothrombin Time 11.6 9.6-11.6 SEC Prothromb Time International Ratio 1.04 0.85-1.15 Sodium Level 146 H 136-145 mmol/L Potassium Level 3.7 3.5-5.1 mmol/L Chloride Level 112 H 101-111 mmol/L Carbon Dioxide Level 26 21-32 mmol/L Blood Urea Nitrogen 10 7-18 mg/dL Creatinine 0.6 0.5-1.0 mg/dL Glomerular Filtration Rate Calc 112 >90 mL/min Random Glucose 212 H 70-105 mg/dL Total Calcium 8.1 L 8.5-10.1 mg/dL Magnesium Level 1.60 L 1.80-2.40 mg/dL Total Bilirubin 0.3 # 0.2-1.0 mg/dL Aspartate Amino Transf (AST/SGOT) 19 10-37 U/L Alanine Aminotransferase (ALT/SGPT) 22 # 12-78 U/L Alkaline Phosphatase 127 50-136 U/L Total Protein 5.8 L 6.0-8.3 g/dL Albumin 2.5 L 3.5-5.0 g/dL Activated Partial Thromboplast Time 29.1 26.3-35.5 SEC Test 09/21/24 05:05 Range/Units C-Reactive Protein, Quantitative 19.70 H 0.5-3.0 mg/L Procalcitonin < 0.05 L 0.05-0.5 ng/mL Current Medications Medications (Trade) Dose Ordered Sig/Ramez Route PRN Reason Start Time Stop Time Status Last Admin Dose Admin Acetaminophen (TYLenol 500MG TAB) 500 mg Q6H PRN PO MILD PAIN (1-3) 09/19/24 20:00 10/19/24 19:59 Aspirin (Aspirin 81mg Chew Tab) 81 mg DAILY PO 09/21/24 09:00 10/21/24 08:59 09/22/24 09:17 81 MG Atorvastatin Calcium (LIPItor 20MG) 20 mg HS PO 09/20/24 21:00 10/20/24 20:59 09/21/24 20:48 20 MG Cadexomer Iodine (Iodosorb Gel 40gm) 1 APPL ONCE TP 09/20/24 11:00 09/20/24 18:08 DC 09/20/24 12:23 1 APPL Cefepime HCl (MAXipime 2 gm vial) 2 gm Q12H IVPB 09/19/24 22:00 09/29/24 21:59 09/22/24 09:17 2 GM Dextrose (D50w) 50 ml AD PRN IV HYPOGLYCEMIA PROTOCOL 09/19/24 20:30 10/19/24 20:29 Enoxaparin Sodium (Lovenox) 40 mg HS SQ 09/20/24 21:00 10/20/24 20:59 09/21/24 20:49 40 MG Glucagon (Glucagon 1mg Kit) 1 mg AD PRN IM HYPOGLYCEMIA PROTOCOL 09/19/24 20:30 10/19/24 20:29 Insulin Glargine (LANtus 100 UNITS/ML 10 ML VIAL) 10 units HS SQ 09/19/24 21:00 10/19/24 20:59 09/21/24 20:49 10 UNITS Insulin Human Regular (humuLIN R 100 UNIT/ML 3ML) INSULIN SLIDING SCAL... ACHS SQ 09/19/24 21:00 10/19/24 20:59 09/22/24 06:22 2 UNIT Lactulose (Constulose 20gm/ 30ml Udcup) 20 gm BID PRN PO CONSTIPATION 09/20/24 10:00 10/20/24 09:59 Magnesium Sulfate 50 ml @ 0 mls/hr PROTOCOL IV 09/19/24 22:30 10/19/24 22:29 09/22/24 06:23 25 MLS/HR Metronidazole/ Sodium Chloride 100 ml @ 100 mls/hr Q8H6 IVPB 09/20/24 00:00 09/30/24 00:00 09/22/24 05:21 100 MLS/HR Morphine Sulfate (morPHINE 2MG SYG) 2 mg Q6H PRN IVP SEVERE PAIN (7-10) 09/19/24 20:00 09/26/24 19:59 Nystatin (NystOP 15 GM POWDER) 1 APPL BID TP 09/20/24 15:00 10/20/24 14:59 09/22/24 09:21 1 APPL Nystatin (NystOP 15 GM POWDER) 1 APPL BID TP 09/20/24 21:00 09/20/24 14:54 DC Ondansetron HCl (zoFRAN 4MG INJ) 4 mg Q6H PRN IVP NAUSEA/VOMITING 09/19/24 20:30 10/19/24 20:29 Potassium Chloride 100 ml @ 100 mls/hr AD PRN IV POTASSIUM PROTOCOL 09/20/24 10:30 10/20/24 10:29 Potassium Chloride (K-Dur/Klor-Con 20meq) 20 meq AD PRN PO POTASSIUM PROTOCOL 09/20/24 10:30 10/20/24 10:29 Potassium Chloride (KCl 10% Elixir 20meq/15ml) 20 meq AD PRN PO POTASSIUM PROTOCOL 09/20/24 10:30 10/20/24 10:29 Sodium Chloride 1,000 ml @ 80 mls/hr [id number] IV 09/19/24 20:00 10/19/24 19:59 09/21/24 21:40 80 MLS/HR Vancomycin HCl 250 ml @ 125 mls/hr Q8H IV 09/22/24 17:00 10/11/24 00:59 Vancomycin HCl 250 ml @ 125 mls/hr Q8H IV 09/20/24 01:00 09/22/24 08:38 DC 09/22/24 00:30 125 MLS/HR Vancomycin HCl (Vancomycin Protocol) 1 each AD IV 09/19/24 20:30 10/03/24 20:29 DIAGNOSTICS / RADIOLOGY: [ ] ASSESSMENT: Acute osteomyelitis of the 5th toe of PIP joint, right foot, POA Non healing diabetic ulcer of the 5th toe of right foot, POA Progressive cellulitis of the right foot, POA Chronic diabetic ulcer of the 1st of the right foot, POA Diabetes mellitus type Diabetic Neuropathy, POA Psoriasis Hyperlipidemia Obesity, POA Hx of Hypotension, POA 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 Continue consistent carb diet Kept NPO today Dr. Simpson planning peripheral angiography or LE with positive P CTA and/or possible arthrectomy later today Normal saline at 80 mL/hour to continue Continue IV Ancef, Flagyl Dr. Mclean for antimicrobial stewardship. 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 Preliminary wound cultures growing Staphylococcus aureus Test: Arterial ultrasound pending results. Labs cbc, cmp, mag+ a.m. and inflammatory markers every other day. Replace electrolytes as needed as per protocol to keep potassium above 4.0 magnesium 2.0. Continue a.c. HS monitoring with sliding scale coverage Home medication reviewed and reconciled We will continue with local wound care per Podiatry, nonweightbearing left foot. Monitor a.m. labs, cultures PRN Treatment - Add when necessary meds for nausea, vomiting, pain, constipation, insomnia. DVT/GI prophylaxis- Continue Lovenox and famotidine at current doses. Full CODE STATUS This document was generated in part using voice recognition software, occasional wrong word or sound alike substitutions may have occurred due to the inherent limitations of voice recognition software. Read the chart carefully and recognize using context, where the substitutions have occurred. Although every effort was made to edit the content, mortgage protection sales and typing errors may occur This case was discussed with Dr. Mahmood and above plan was formulated ATTESTATION BY PHYSICIAN I have seen and examined the patient. I reviewed the documentation, medical decision making, and treatment plan as noted by the mid-level provider above. I agree with the findings and plan of care. Sonia Mahmood MD, MARCELO O APRN Sep 22, 2024 11:27
--- NOTE | 2024-09-22 13:00 | NUR ---
PICC RG Picc nurse at bedside. Placed picc line. Refer to Insertion/ time out and documentation record form in chart.
[2024-09-22] MEDS: ceFAZolin SODIUM 2 GM VIAL IVPB SCH (13:54)
--- NOTE | 2024-09-22 15:26 | HMCIMG ---
CHEST 1VW HISTORY: PICC line placement COMPARISON: None FINDINGS: A frontal projection of the chest was obtained. Prominent interstitial markings are seen with possible superimposed infiltrates. The heart is borderline enlarged. The study is limited due to poor positioning. PICC line is seen entering from the right with distal tip in the plane of the superior vena cava. Mild degenerative changes are seen. IMPRESSION: 1. Prominent interstitial markings are seen with possible superimposed infiltrates.
[2024-09-22] MEDS ORDERED: VANCOMYCIN 1G/250ML KIT 250 ML IV SCH (17:00)
[2024-09-22] MEDS ORDERED: IODIXANOL 320 MG/ML 100 ML VIAL ONE (18:51)
[2024-09-22] MEDS ORDERED: LIDOCAINE HCL 400MG/20ML VIAL ONE (18:51)
[2024-09-22] MEDS ORDERED: HEParin-NS 1,000 UNIT/500 ML 1,000 ML IV ONE (18:52)
[2024-09-22] MEDS ORDERED: NITROGLYCERIN 50MG VIAL ONE (18:52)
--- NOTE | 2024-09-22 19:09 | NUR ---
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
[2024-09-22] MEDS ORDERED: MIDAZOLAM HCL 1 MG/ML 2ML VIAL ONE (19:17)
[2024-09-22] MEDS ORDERED: FENTanyl CITRate PF 50 MCG/1 ML 2ML VIAL ONE (19:17)
--- NOTE | 2024-09-22 20:19 | PRN ---
Abdominal Aortogram With Runoff To Pelvic Vessels And Right Lower Extremity Arteriogram Indication: Nonhealing ulcer right great toe and right 5th digit Technique: Patient was brought to the lab in a fasting state after informed consent in sedated with 1 mg Versed and 50 mcg fentanyl. Under local anesthesia with 1% lidocaine using micropuncture technique under fluoroscopic and ultrasound guidance the left common femoral artery was punctured anteriorly and a six Khmer sheath was inserted. An Omni flush catheter was positioned in the distal abdominal aorta and aortogram with pelvic runoff was obtained. The Omni flush was repositioned in the right common femoral and SFA, and right lower extremity digital subtraction arteriograms were obtained sequentially. At the conclusion of the procedure the catheter was removed and hemostasis was obtained by use of Perclose with excellent hemostasis and no complications. Patient received 65 mL contrast. Results: From the abdominal aorta to the proximal SFA and profunda there is no disease on the left side. From the abdominal aorta to the digital vessels on the right side there was no fixed obstructive disease evident. There is some hypervascularity of the right great toe medially, and there is some hypervascularity of the right 5th digit as well; these areas correspond to known ulcerations. The plantar arches supplied by both the anterior tibial and posterior tibial. WAYNE BETH MD Sep 22, 2024 20:19
[2024-09-22] MEDS: 0.9%NACL 1000ML 1,000 ML IV SCH (20:45)
--- NOTE | 2024-09-22 21:03 | PN ---
INFECTIOUS DISEASE PROGRESS NOTE Date of Service: Sep 22, 2024 SUBJECTIVE: This is a 44-year-old female patient who was admitted to the hospital for chief complaint of pain, redness and swelling to the right foot. Patient was seen and examined at bedside in room 316. Patient is awake, alert and oriented x 3. Final right foot wound culture results came back positive for Staphylococcus aureus. Patient with right 5th toe osteomyelitis. Continues on vancomycin, cefepime and metronidazole IV. Pending the PICC line placement. Prescription for cefazolin 2 g IV every 8 hours x 6 weeks was written. We will have Case management evaluate patient for referral to [facility] for outpatient IV antibiotics. During rounding today patient is pending a peripheral angiogram. We will continue to follow pat ient's care. PHYSICAL EXAM EYES: Anicteric. Pupils equal and reactive. HENT: No oral thrush seen, moist Oral mucosa. NECK: Supple, no JVD or thyromegaly. LUNGS: Good air entry. No rales, no rhonchi. CARDIOVASCULAR: S1, S2 regular. No murmur heard. ABDOMEN: Soft, non tender, bowel sounds present, no organomegaly. CENTRAL NERVOUS SYSTEM: Awake, alert, oriented x 3. SKIN: No rashes, no swelling. LYMPHATICS: No peripheral lymphadenopathy. MUSCULOSKELETAL: No joint swelling, erythema or tenderness. EXTREMITIES: No cyanosis or clubbing. Right 5th toe diabetic ulcer. BACK: No deformity, no pressure ulcer. GENITOURINARY: No dysuria or hematuria. Vital Sign (Last 12 Hours) 09/22/24 09/22/24 09/22/24 11:42 16:19 20:30 Temp 97.5 98.1 98.6 Pulse 79 82 86 Resp 18 18 18 B/P (MAP) 125/74 139/95 123/79 Pulse Ox 98 100 98 O2 Delivery Room Air Room Air Room Air Intake & Output (last 24hrs) 09/21/24 09/21/24 09/22/24 15:00 23:00 07:00 Intake Total 1100 ml 200.0 ml 640.0 ml Balance 1100 ml 200.0 ml 640.0 ml LABS: Laboratory: Test 09/22/24 15:16 09/22/24 07:48 09/22/24 04:32 09/21/24 15:48 Range/Units Whole Blood Glucose 95 70-110 MG/DL Vancomycin Level Trough 20.5 H 10.0-20.0 UG/ML White Blood Count 6.2 4.8-10.8 K/uL Red Blood Count 3.76 L 4.00-5.50 MIL/uL Hemoglobin 10.9 L 12.0-16.0 g/dL Hematocrit 34.0 L 36-48 % Mean Corpuscular Volume 90.4 79-99 fL Mean Corpuscular Hemoglobin 29.0 27.0-33.0 pg Mean Corpuscular Hemoglobin Concent 32.1 32.0-36.0 g/dL Red Cell Distribution Width 13.4 11.0-15.5 % Platelet Count 218 130-400 K/uL Mean Platelet Volume 9.6 7.5-10.5 fL Immature Granulocyte % (Auto) 0.5 0-1 % Neutrophils (%) (Auto) 69.3 40.0-77.0 % Lymphocytes (%) (Auto) 23.3 21.0-51.0 % Monocytes (%) (Auto) 6.7 3.0-13.0 % Eosinophils (%) (Auto) 0.0 0.0-8.0 % Basophils (%) (Auto) 0.2 0.0-5.0 % Neutrophils # (Auto) 4.3 1.8-7.7 K/uL Lymphocytes # (Auto) 1.4 1.0-4.8 K/uL Monocytes # (Auto) 0.4 0.1-1.0 K/uL Eosinophils # (Auto) 0.00 0.00-0.70 K/uL Basophils # (Auto) 0.01 0.00-0.20 K/uL Absolute Immature Granulocyte (auto 0.03 0-1 K/uL Nucleated Red Blood Cells 0.0 0.0-0.19 % Prothrombin Time 11.6 9.6-11.6 SEC Prothromb Time International Ratio 1.04 0.85-1.15 Sodium Level 146 H 136-145 mmol/L Potassium Level 3.7 3.5-5.1 mmol/L Chloride Level 112 H 101-111 mmol/L Carbon Dioxide Level 26 21-32 mmol/L Blood Urea Nitrogen 10 7-18 mg/dL Creatinine 0.6 0.5-1.0 mg/dL Glomerular Filtration Rate Calc 112 >90 mL/min Random Glucose 212 H 70-105 mg/dL Total Calcium 8.1 L 8.5-10.1 mg/dL Magnesium Level 1.60 L 1.80-2.40 mg/dL Total Bilirubin 0.3 # 0.2-1.0 mg/dL Aspartate Amino Transf (AST/SGOT) 19 10-37 U/L Alanine Aminotransferase (ALT/SGPT) 22 # 12-78 U/L Alkaline Phosphatase 127 50-136 U/L Total Protein 5.8 L 6.0-8.3 g/dL Albumin 2.5 L 3.5-5.0 g/dL Activated Partial Thromboplast Time 29.1 26.3-35.5 SEC Test 09/21/24 05:05 Range/Units C-Reactive Protein, Quantitative 19.70 H 0.5-3.0 mg/L Procalcitonin < 0.05 L 0.05-0.5 ng/mL PATIENT: ALMA GUZMAN V ACCT: [id number] LOC: [facility] U: [id number] AGE/SX: 44/F ROOM: [facility] RE09/19/[address]: CONSTANCE PICKARD MD : 1980 BED: 1 DIS: STATUS: ADM IN TLOC: SPEC: [id number] SERENA: 09/19/24 STATUS: RES REQ: [id number] RECD: 09/19/24-[address]: CONSTANCE PICKARD MD SOURCE: FOOT ENTR: 09/19/24 [facility] DR: JAMES GUO M.D. SPDESC: FOOT RIGHT HEENA GREENFIELD Truong ORDERED: ADIN CULTURE, AEROBIC CULTURE Procedure Result Rebecca Date-Time ANAEROBIC CULTURE Preliminary 09/22/24 MRL COLONY DESCRIPTION: REPORT 1: NO ANAEROBES AT 16-23 HOURS; STUDIES TO CONTINUE REPORT 2: NO ANAEROBES AT 36-47 HOURS; STUDIES TO CONTINUE Test(s) performed by: [facility] [address] [place] [address] AEROBIC CULTURE Preliminary 09/22/24 MRL COLONY DESCRIPTION: REPORT 1: 1+ GRAM POSITIVE COCCI IN CLUSTERS STAPHYLOCOCCUS AUREUS SENSITIVITY TO FOLLOW REPORT 2: 1+ GRAM NEGATIVE RODS IDENTIFICATION AND SENSITIVITY TO FOLLOW STAPHYLOCOCCUS AUREUS S. AUREUS M.I.C. RX --------- ---- ERYTHROMYCIN <=0.5 S GENTAMICIN <=4 S LEVOFLOXACIN <=1 S VANCOMYCIN 1 S OXACILLIN SUZIE 1 S RIFAMPIN <=1 S PENICILLIN >8 Edgar TRIMETHOPRIM/SUFLAMETHOXAZOLE <=0.5/9.5 S ASSESSMENT: Right 5th toe diabetic ulcer infection with methicillin sensitive Staphylococcus aureus. Right 5th toe with osteomyelitis. Peripheral vascular disease. Diabetes mellitus. Obesity. PLAN: Discontinue vancomycin per pharmacy protocol. Discontinue cefepime IV. Start cefazolin 2 g IV every 8 hours. Continue metronidazole IV. Continue wound care as recommended by prop attendant. Continue pain management. Continue monitoring glucose levels. Case management evaluation for referral to [facility] for outpatient IV antibiotics. Prescription for cefazolin 2 g IV every 8 hours x 6 weeks was written. Patient is pending a peripheral angiogram. This case was reviewed and discussed with my supervising physician and the above assessment and plan was formulated and agreed upon. ATTESTATION BY PHYSICIAN I have seen and examined the patient. I reviewed the documentation, medical decision making, and treatment plan as noted by the mid-level provider above. I agree with the findings and plan of care. BEBE VIGIL MD, MIRTA L [employer]IC[employer] PROCESSING GROUP LEADER Sep 22, 2024 21:03
[2024-09-23] VITALS (7 sets, daily range): BP systolic 97–112; BP diastolic 63–77; PULSE 76–80; RESP 18–20; TEMP 97.9–98; O2SAT 100
[2024-09-23 03:39] LABS: BASOPHILS # (AUTO) 0.01 K/uL (0.00-0.20); BASOPHILS % (AUTO) 0.1 % (0.0-5.0); HEMATOCRIT 32.9 % (36-48); IMMATURE GRANULOCYTE ABSOLUTE 0.03 K/uL (0-1); LYMPHOCYTES # (AUTO) 2.2 K/uL (1.0-4.8); MEAN CORPUSCULAR HEMOGLOBIN 28.8 pg (27.0-33.0); MEAN CORPUSCULAR HGB CONC 32.5 g/dL (32.0-36.0); MEAN CORPUSCULAR VOLUME 88.4 fL (79-99); MONOCYTES # (AUTO) 0.5 K/uL (0.1-1.0); MONOCYTES % (AUTO) 6.6 % (3.0-13.0); NEUTROPHILS # (AUTO) 4.7 K/uL (1.8-7.7); NEUTROPHILS % (AUTO) 62.9 % (40.0-77.0); PLATELET COUNT (AUTO) 238 K/uL (130-400); RED BLOOD CELL COUNT(AUTO) 3.72 MIL/uL (4.00-5.50); RED CELL DISTRIBUTION WIDTH 13.4 % (11.0-15.5); WHITE BLOOD COUNT (AUTO) 7.5 K/uL (4.8-10.8)
[2024-09-23 03:59] LABS: ALBUMIN 2.5 g/dL (3.5-5.0); BILIRUBIN,TOTAL 0.4 mg/dL (0.2-1.0); CREATININE 0.5 mg/dL (0.5-1.0); MAGNESIUM 1.8 mg/dL (1.80-2.40); POTASSIUM 3.6 mmol/L (3.5-5.1); TOTAL PROTEIN, SERUM 5.5 g/dL (6.0-8.3)
--- NOTE | 2024-09-23 08:20 | PN ---
[facility] PROGRESS NOTE Date of Service: Sep 23, 2024 Time of Service: 08:20 SUBJECTIVE: [ ] 44 year old female with Hx of DM II (Diagnosed 18 years ago), Obesity, HLD, Psoriasis who presented as a transfer from [facility] and admitted to the medical floor with diagnosis of suspected acute osteomyelitis of right 5th toe, nonhealing diabetic ulcer of the 5th toe, progressive cellulitis of the right foot. Dr. Jean-Baptiste was consulted. Recommended MRI. Suspicious for osteomyelitis. Podiatry recommends amputation, patient has refused. Ultrasound arterial Dopplers of lower extremities show atherosclerotic disease, with the right side showing monophasic flow along the right posterior tibial, distal anterior tibial and dorsalis pedis arteries without evidence of high-grade flow rate limiting stenosis. S/p abdominal aortogram with runoff to pelvic vessels and right lower extremity arteriogram by Dr. Simpson 09/22/2024 Today on bedside evaluation patient was found awake alert and oriented x 3. The power chart reviewed, vital signs, laboratory tests, imaging test and medications have been reviewed. Latest vitals and labs are stable. Patient tolerated cardiac intervention. PICC line in place to right upper extremity. Continues IV Ancef at ID's direction. Continue wound care. Case management coordinating for outpatient antibiotics at [facility], pending acceptance. Patient reports yeast infection, this is suspected secondary to antibiotic therapy. We will start Diflucan. Discussed with primary nurse. REVIEW OF SYSTEMS CONSTITUTIONAL: fevers, chills, asthenia, malaise NEUROLOGICAL: Denies headache, amaurosis fugax, motor weakness, sensory deficit, vertigo/spinning sensation, gait abnormalities, or tremors. ENT: No hearing loss, otalgia, otorrhea, rhinitis, rhinorrhea, hoarseness, or sore throat. CARDIOVASCULAR: Denies any exertional angina, dyspnea on exertion, orthopnea, paroxysmal nocturnal dyspnea, palpitations, life-threatening arrhythmias, claudication. PULMONARY: Denies any shortness of breath, cough, phlegm/sputum, hemoptysis, pleuritic chest pain. SLEEP: Denies morning headaches, daytime somnolence or napping. Denies difficulty falling asleep, staying asleep, waking from sleep. Denies knowledge of snoring. GASTROINTESTINAL: Denies any type of dysphagia to either liquids or solids. Denies nausea, vomiting, pyrosis, early satiety, abdominal pain, diarrhea, constipation, or changes in stool consistency or caliber. Denies coffee-ground emesis, hematemesis, hematochezia, or melanotic stools. GENITOURINARY: Denies frequency, urgency, nocturia, hematuria or incontinence (Storage/Irritative symptoms.) Low urinary stream, straining to void, urinary intermittency or hesitancy, splitting of the voiding stream, terminal dribbling. ENDOCRINOLOGIC: Denies polyuria, polydipsia, polyphagia or heat/cold intolerances. HEMATOLOGIC: Denies thrombophilia/previous clots, or coagulopathy/bleeding disorders. ONCOLOGIC: Denies personal history of malignancy. DERMATOLOGIC: redness and swelling of the right foot, with non heling wound involving the 5th toe of the right foot PSYCHIATRIC: Denies any suicidal or homicidal ideation. Denies hallucinations. PHYSICAL EXAM GENERAL APPEARANCE: The patient is awake, alert, and oriented, in no acute cardiopulmonary distress. NEUROLOGICAL: Cranial nerves II-XII grossly intact. Motor is 5/5 in bilateral upper and lower extremities proximal to distal. No sensory deficits. HEENT: Face is symmetric. Pupils are equal and reactive. Extraocular movements are intact. NECK: Supple. No JVD. No thyromegaly. No submental, submandibular, pre- /postauricular, occipital or supraclavicular lymphadenopathy. CHEST: Normal chest expansion. No Telemetry. LUNGS: Absence of any rales, rhonchi or any wheezing. CARDIOVASCULAR: Regular. S1 and S2 normal. No appreciable rubs, murmurs or gallops. ABDOMEN: Soft, nontender, and nondistended. There is no rebound, voluntary guarding, or rigidity. : Deferred. No Donahue. EXTREMITIES: Ulcer noted of the first toe of the right foot with callus, 5th toe of the right foot with small wound noted with serosanguinous drainage with small opening, redness and swelling noted right foot noted as well. Left foot noted with prior scar of 4th toe amputation SKIN: as noted above Vital Signs (last 8hr) Date Time Temp Pulse Resp B/P (MAP) Pulse Ox O2 Delivery O2 Flow Rate FiO2 09/23/24 04:00 97.9 76 18 103/73 97 Room Air 09/23/24 02:30 97.9 76 18 112/77 97 Room Air 09/23/24 01:30 97.9 78 18 109/69 98 Room Air 09/23/24 00:30 97.9 78 18 112/74 96 Room Air LABS: Laboratory: Test 09/23/24 05:20 09/23/24 03:35 09/22/24 07:48 09/22/24 04:32 Range/Units Whole Blood Glucose 115 H 70-110 MG/DL White Blood Count 7.5 4.8-10.8 K/uL Red Blood Count 3.72 L 4.00-5.50 MIL/uL Hemoglobin 10.7 L 12.0-16.0 g/dL Hematocrit 32.9 L 36-48 % Mean Corpuscular Volume 88.4 79-99 fL Mean Corpuscular Hemoglobin 28.8 27.0-33.0 pg Mean Corpuscular Hemoglobin Concent 32.5 32.0-36.0 g/dL Red Cell Distribution Width 13.4 11.0-15.5 % Platelet Count 238 130-400 K/uL Mean Platelet Volume 9.3 7.5-10.5 fL Immature Granulocyte % (Auto) 0.4 0-1 % Neutrophils (%) (Auto) 62.9 40.0-77.0 % Lymphocytes (%) (Auto) 30.0 21.0-51.0 % Monocytes (%) (Auto) 6.6 3.0-13.0 % Eosinophils (%) (Auto) 0.0 0.0-8.0 % Basophils (%) (Auto) 0.1 0.0-5.0 % Neutrophils # (Auto) 4.7 1.8-7.7 K/uL Lymphocytes # (Auto) 2.2 1.0-4.8 K/uL Monocytes # (Auto) 0.5 0.1-1.0 K/uL Eosinophils # (Auto) 0.00 0.00-0.70 K/uL Basophils # (Auto) 0.01 0.00-0.20 K/uL Absolute Immature Granulocyte (auto 0.03 0-1 K/uL Nucleated Red Blood Cells 0.0 0.0-0.19 % Sodium Level 143 136-145 mmol/L Potassium Level 3.6 3.5-5.1 mmol/L Chloride Level 110 101-111 mmol/L Carbon Dioxide Level 29 21-32 mmol/L Blood Urea Nitrogen 9 7-18 mg/dL Creatinine 0.5 0.5-1.0 mg/dL Glomerular Filtration Rate Calc 117 >90 mL/min Random Glucose 114 H 70-105 mg/dL Total Calcium 8.1 L 8.5-10.1 mg/dL Magnesium Level 1.80 1.80-2.40 mg/dL Total Bilirubin 0.4 # 0.2-1.0 mg/dL Aspartate Amino Transf (AST/SGOT) 30 10-37 U/L Alanine Aminotransferase (ALT/SGPT) 32 # 12-78 U/L Alkaline Phosphatase 104 50-136 U/L Total Protein 5.5 L 6.0-8.3 g/dL Albumin 2.5 L 3.5-5.0 g/dL Vancomycin Level Trough 20.5 H 10.0-20.0 UG/ML Prothrombin Time 11.6 9.6-11.6 SEC Prothromb Time International Ratio 1.04 0.85-1.15 Test 09/21/24 15:48 Range/Units Activated Partial Thromboplast Time 29.1 26.3-35.5 SEC Current Medications Medications (Trade) Dose Ordered Sig/Ramez Route PRN Reason Start Time Stop Time Status Last Admin Dose Admin Acetaminophen (TYLenol 500MG TAB) 500 mg Q6H PRN PO MILD PAIN (1-3) 09/19/24 20:00 10/19/24 19:59 Aspirin (Aspirin 81mg Chew Tab) 81 mg DAILY PO 09/21/24 09:00 10/21/24 08:59 09/22/24 09:17 81 MG Atorvastatin Calcium (LIPItor 20MG) 20 mg HS PO 09/20/24 21:00 10/20/24 20:59 09/22/24 21:51 20 MG Cadexomer Iodine (Iodosorb Gel 40gm) 1 APPL ONCE TP 09/20/24 11:00 09/20/24 18:08 DC 09/20/24 12:23 1 APPL Cefazolin Sodium (Ancef) 2 gm Q8H IVPB 09/22/24 13:00 10/13/24 12:59 09/23/24 04:24 2 GM Cefepime HCl (MAXipime 2 gm vial) 2 gm Q12H IVPB 09/19/24 22:00 09/22/24 12:46 DC 09/22/24 09:17 2 GM Dextrose (D50w) 50 ml AD PRN IV HYPOGLYCEMIA PROTOCOL 09/19/24 20:30 10/19/24 20:29 Enoxaparin Sodium (Lovenox) 40 mg HS SQ 09/20/24 21:00 10/20/24 20:59 09/22/24 22:04 40 MG Glucagon (Glucagon 1mg Kit) 1 mg AD PRN IM HYPOGLYCEMIA PROTOCOL 09/19/24 20:30 10/19/24 20:29 Insulin Glargine (LANtus 100 UNITS/ML 10 ML VIAL) 10 units HS SQ 09/19/24 21:00 10/19/24 20:59 09/22/24 21:50 10 UNITS Insulin Human Regular (humuLIN R 100 UNIT/ML 3ML) INSULIN SLIDING SCAL... ACHS SQ 09/19/24 21:00 10/19/24 20:59 09/22/24 06:22 2 UNIT Lactulose (Constulose 20gm/ 30ml Udcup) 20 gm BID PRN PO CONSTIPATION 09/20/24 10:00 10/20/24 09:59 Magnesium Sulfate 50 ml @ 0 mls/hr PROTOCOL IV 09/19/24 22:30 10/19/24 22:29 09/23/24 05:28 25 MLS/HR Metronidazole/ Sodium Chloride 100 ml @ 100 mls/hr Q8H6 IVPB 09/20/24 00:00 09/30/24 00:00 09/23/24 05:14 100 MLS/HR Morphine Sulfate (morPHINE 2MG SYG) 2 mg Q6H PRN IVP SEVERE PAIN (7-10) 09/19/24 20:00 09/26/24 19:59 Nystatin (NystOP 15 GM POWDER) 1 APPL BID TP 09/20/24 15:00 10/20/24 14:59 09/22/24 21:51 1 APPL Nystatin (NystOP 15 GM POWDER) 1 APPL BID TP 09/20/24 21:00 09/20/24 14:54 DC Ondansetron HCl (zoFRAN 4MG INJ) 4 mg Q6H PRN IVP NAUSEA/VOMITING 09/19/24 20:30 10/19/24 20:29 Potassium Chloride 100 ml @ 100 mls/hr AD PRN IV POTASSIUM PROTOCOL 09/20/24 10:30 10/20/24 10:29 Potassium Chloride (K-Dur/Klor-Con 20meq) 20 meq AD PRN PO POTASSIUM PROTOCOL 09/20/24 10:30 10/20/24 10:29 Potassium Chloride (KCl 10% Elixir 20meq/15ml) 20 meq AD PRN PO POTASSIUM PROTOCOL 09/20/24 10:30 10/20/24 10:29 Sodium Chloride 1,000 ml @ 80 mls/hr [id number] IV 09/19/24 20:00 09/22/24 20:15 DC 09/21/24 21:40 80 MLS/HR Sodium Chloride 1,000 ml @ 150 mls/hr Q6H40M IV 09/22/24 20:30 09/23/24 00:29 DC 09/22/24 20:45 150 MLS/HR Vancomycin HCl 250 ml @ 125 mls/hr Q8H IV 09/22/24 17:00 09/22/24 12:46 DC Vancomycin HCl 250 ml @ 125 mls/hr Q8H IV 09/20/24 01:00 09/22/24 08:38 DC 09/22/24 00:30 125 MLS/HR Vancomycin HCl (Vancomycin Protocol) 1 each AD IV 09/19/24 20:30 09/22/24 12:46 DC DIAGNOSTICS / RADIOLOGY: [ ] ASSESSMENT: Acute osteomyelitis of the 5th toe of PIP joint, right foot, POA Non healing diabetic ulcer of the 5th toe of right foot, POA Progressive cellulitis of the right foot, POA Chronic diabetic ulcer of the 1st of the right foot, POA Diabetes mellitus type Diabetic Neuropathy, POA Psoriasis Hyperlipidemia Obesity, POA Hx of Hypotension, POA 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 Continue consistent carb diet S/p abdominal aortogram with runoff to pelvic vessels and right lower extremity arteriogram Normal saline at 80 mL/hour to continue Continue IV Antione Ordoñez Dr. for antimicrobial stewardship. PICC line placed Case management consulted for continued IV antibiotics via [facility] with Ancef x6 weeks Consultants evaluation manager no surgical intervention as per patient wants to attempt with antibiotics and local wound care and hyperbarics., Asper airconditioning drafting officer patient would benefit from formal angiography versus CT angiography and then decide on whether any venous workup should be done on an in or outpatient basis. Preliminary wound cultures growing Staphylococcus aureus Test: Arterial ultrasound pending results. Labs cbc, cmp, mag+ a.m. and inflammatory markers every other day. Replace electrolytes as needed as per protocol to keep potassium above 4.0 magnesium 2.0. Continue a.c. HS monitoring with sliding scale coverage Home medication reviewed and reconciled We will continue with local wound care per Podiatry, nonweightbearing left foot. Monitor a.m. labs, cultures PRN Treatment - Add when necessary meds for nausea, vomiting, pain, constipation, insomnia. DVT/GI prophylaxis- Continue Lovenox and famotidine at current doses. Full CODE STATUS Pending [facility] approval This document was generated in part using voice recognition software, occasional wrong word or sound alike substitutions may have occurred due to the inherent limitations of voice recognition software. Read the chart carefully and recognize using context, where the substitutions have occurred. Although every effort was made to edit the content, blueprinter and typing errors may occur I have seen and evaluated the patient alongside the nurse practitioner/physician first assistant. I agree with the assessment and plan as above. MATTIE LINDSEY APRN Sep 23, 2024 08:20 CALVIN GARCIA IV, MD Sep 23, 2024 13:22
[2024-09-23] MEDS: PoTASSium chloRIDE 20MEQ ER 20 MEQ ERTAB PO PRN (09:53)
[2024-09-23] MEDS: ceFEPime HCL 1 GM VIAL IVPB SCH (12:57)
[2024-09-23] MEDS: fluCONazole 100 MG TAB PO ONE (12:57)
--- NOTE | 2024-09-23 13:51 | DS ---
Discharge Summary Hospital Course Summary: 44 year old female with Hx of DM II (Diagnosed 18 years ago), Obesity, HLD, Psoriasis who presented as a transfer from [facility] ER and admitted to the medical floor with diagnosis of suspected acute osteomyelitis of right 5th toe, nonhealing diabetic ulcer of the 5th toe, progressive cellulitis of the right foot. Dr. Jean-Baptiste was consulted. Recommended MRI. Suspicious for osteomyelitis. Podiatry recommends amputation, patient has refused. Ultrasound arterial Dopplers of lower extremities show atherosclerotic disease, with the right side showing monophasic flow along the right posterior tibial, distal anterior tibial and dorsalis pedis arteries without evidence of high-grade flow rate limiting stenosis. Latest vitals and labs are stable. Patient tolerated cardiac intervention. PICC line in place to right upper extremity. Continues IV Cefepime at ID's direction. Continue wound care. Case management coordinating for outpatient antibiotics at [facility]. Patient reports yeast infection, this is suspected secondary to antibiotic therapy. We will start Diflucan. From medical standpoint patient is stable and cleared for discharge once [facility] has been approved. Advised to follow up PCP to days continued evaluation. Follow up with [facility] continued antibiotic therapy. Follow up Dr. Calabrese [facility] continued wound care recommendations. Patient verbalized understanding of instructions and discharge plan. Medications have been reconciled. Script has been sent to patient's pharmacy. [employer] Contact Printer(s): Infectious disease specialist Podiatry Dr. Calabrese Frame Maker Dr. Simpson Procedure(s): Especially abdominal aortogram with runoff the pelvic vessels and right lower extremity arteriogram by Dr. Simpson on 09/22/2024 Assessment/Plan: ASSESSMENT: Acute osteomyelitis of the 5th toe of PIP joint, right foot, POA Non healing diabetic ulcer of the 5th toe of right foot, POA Progressive cellulitis of the right foot, POA Chronic diabetic ulcer of the 1st of the right foot, POA Diabetes mellitus type Diabetic Neuropathy, POA Psoriasis Hyperlipidemia Obesity, POA Hx of Hypotension, POA 4th toe amputation of left foot, POA PLAN: Medically cleared for discharge Continue consistent carb diet S/p abdominal aortogram with runoff to pelvic vessels and right lower extremity arteriogram Discontinue Continue IV cefepime Dr. Mclean for antimicrobial stewardship. 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 Preliminary wound cultures growing Staphylococcus aureus Test: Arterial ultrasound pending results. Labs cbc, cmp, mag+ a.m. and inflammatory markers every other day. Replace electrolytes as needed as per protocol to keep potassium above 4.0 magnesium 2.0. Continue a.c. HS monitoring with sliding scale coverage Home medication reviewed and reconciled We will continue with local wound care per Podiatry, nonweightbearing left foot. Monitor a.m. labs, cultures PRN Treatment - Add when necessary meds for nausea, vomiting, pain, constipation, insomnia. DVT/GI prophylaxis- Continue Lovenox and famotidine at current doses. Full CODE STATUS Disposition: Home This document was generated in part using voice recognition software, occasional wrong word or sound alike substitutions may have occurred due to the inherent limitations of voice recognition software. Read the chart carefully and r ecognize using context, where the substitutions have occurred. Although every effort was made to edit the content, hunting sales associate and typing errors may occur Discharge Instructions: Medically cleared for discharge. Follow up PCP in 2-3 days for continued evaluation. Follow up with ID at [facility] for continued IV antibiotic therapy. Follow up with Dr. Calabrese at [facility] for continued wound care. Continue Diflucan 150 mg p.o. every three days x2 doses This case was discussed with Dr. Irene and above plan was formulated Home Medications: Reported Medications Insulin Degludec (Tresiba) 100 Unit/Ml Vial, 35 UNIT SQ HS, VIAL 09/20/24 Semaglutide (Ozempic) 2 Mg/0.75 Ml (8 Mg/3 Ml) Pen.injctr, 2 MG SQ QWEEK for 30 Days, #3 ML 0 Refills 09/20/24 Metformin HCl (Metformin HCl) 1,000 Mg Tablet, 1000 MG PO BID, TAB 09/20/24 Atorvastatin Calcium (Atorvastatin Calcium) 20 Mg Tablet, 20 MG PO HS, TAB 09/20/24 Aspirin (ASPIRIN 81MG CHEW TAB) 81 Mg Tab.chew, 81 MG PO HS, TAB.CHEW 09/20/24 Time spent arranging discharge: 31-60 minutes MATTIE LINDSEY APRN Sep 23, 2024 13:51
[2024-09-23] MEDS ORDERED: FLUC150T48 PO (13:55)
--- NOTE | 2024-09-23 14:03 | PN ---
INFECTIOUS DISEASE PROGRESS NOTE Date of Service: Sep 23, 2024 SUBJECTIVE: This is a 44-year-old female patient who was admitted to the hospital for chief complaint of pain, redness and swelling to the right foot. Patient was seen and examined at bedside in room 316. Patient is awake, alert and oriented x 3. Patient's final right foot culture results grew Pseudomonas aeruginosa besides the Staphylococcus aureus. Cefazoli n was discontinued and patient was started on cefepime g IV every 8 hours. New Prescription was written and case management was informed to refax the new prescription for approval. PICC line has been placed. Patient is Status post peripheral angiogram day # 1 with no finding of occlusions. We will continue to follow patient's care. PHYSICAL EXAM EYES: Anicteric. Pupils equal and reactive. HENT: No oral thrush seen, moist Oral mucosa. NECK: Supple, no JVD or thyromegaly. LUNGS: Good air entry. No rales, no rhonchi. CARDIOVASCULAR: S1, S2 regular. No murmur heard. ABDOMEN: Soft, non tender, bowel sounds present, no organomegaly. CENTRAL NERVOUS SYSTEM: Awake, alert, oriented x 3. SKIN: No rashes, no swelling. LYMPHATICS: No peripheral lymphadenopathy. MUSCULOSKELETAL: No joint swelling, erythema or tenderness. EXTREMITIES: No cyanosis or clubbing. Right 5th toe diabetic ulcer. BACK: No deformity, no pressure ulcer. GENITOURINARY: No dysuria or hematuria. Vital Sign (Last 12 Hours) 09/23/24 09/23/24 09/23/24 09/23/24 02:30 04:00 08:00 09:54 Temp 97.9 97.9 98.1 Pulse 76 76 80 Resp 18 18 20 B/P (MAP) 112/77 103/73 99/72 Pulse Ox 97 97 100 100 O2 Delivery Room Air Room Air Room Air Room Air* O2 Flow Rate 0 FiO2 21 09/23/24 12:00 Temp 97.9 Pulse 79 Resp 18 B/P (MAP) 97/63 Pulse Ox 100 O2 Delivery Room Air Intake & Output (last 24hrs) 09/22/24 09/22/24 09/23/24 15:00 23:00 07:00 Intake Total 300 ml 1160.0 ml 490.0 ml Output Total 500 ml 700 ml Balance 300 ml 660.0 ml -210.0 ml LABS: Laboratory: Test 09/23/24 12:03 09/23/24 03:35 09/22/24 07:48 09/22/24 04:32 Range/Units Whole Blood Glucose 186 #H 70-110 MG/DL White Blood Count 7.5 4.8-10.8 K/uL Red Blood Count 3.72 L 4.00-5.50 MIL/uL Hemoglobin 10.7 L 12.0-16.0 g/dL Hematocrit 32.9 L 36-48 % Mean Corpuscular Volume 88.4 79-99 fL Mean Corpuscular Hemoglobin 28.8 27.0-33.0 pg Mean Corpuscular Hemoglobin Concent 32.5 32.0-36.0 g/dL Red Cell Distribution Width 13.4 11.0-15.5 % Platelet Count 238 130-400 K/uL Mean Platelet Volume 9.3 7.5-10.5 fL Immature Granulocyte % (Auto) 0.4 0-1 % Neutrophils (%) (Auto) 62.9 40.0-77.0 % Lymphocytes (%) (Auto) 30.0 21.0-51.0 % Monocytes (%) (Auto) 6.6 3.0-13.0 % Eosinophils (%) (Auto) 0.0 0.0-8.0 % Basophils (%) (Auto) 0.1 0.0-5.0 % Neutrophils # (Auto) 4.7 1.8-7.7 K/uL Lymphocytes # (Auto) 2.2 1.0-4.8 K/uL Monocytes # (Auto) 0.5 0.1-1.0 K/uL Eosinophils # (Auto) 0.00 0.00-0.70 K/uL Basophils # (Auto) 0.01 0.00-0.20 K/uL Absolute Immature Granulocyte (auto 0.03 0-1 K/uL Nucleated Red Blood Cells 0.0 0.0-0.19 % Sodium Level 143 136-145 mmol/L Potassium Level 3.6 3.5-5.1 mmol/L Chloride Level 110 101-111 mmol/L Carbon Dioxide Level 29 21-32 mmol/L Blood Urea Nitrogen 9 7-18 mg/dL Creatinine 0.5 0.5-1.0 mg/dL Glomerular Filtration Rate Calc 117 >90 mL/min Random Glucose 114 H 70-105 mg/dL Total Calcium 8.1 L 8.5-10.1 mg/dL Magnesium Level 1.80 1.80-2.40 mg/dL Total Bilirubin 0.4 # 0.2-1.0 mg/dL Aspartate Amino Transf (AST/SGOT) 30 10-37 U/L Alanine Aminotransferase (ALT/SGPT) 32 # 12-78 U/L Alkaline Phosphatase 104 50-136 U/L Total Protein 5.5 L 6.0-8.3 g/dL Albumin 2.5 L 3.5-5.0 g/dL Vancomycin Level Trough 20.5 H 10.0-20.0 UG/ML Prothrombin Time 11.6 9.6-11.6 SEC Prothromb Time International Ratio 1.04 0.85-1.15 Test 09/21/24 15:48 Range/Units Activated Partial Thromboplast Time 29.1 26.3-35.5 SEC PATIENT: ALMA GUZMAN V ACCT: [id number] LOC: [facility] U: [id number] AGE/SX: 44/F ROOM: [facility] RE09/19/[address]: CONSTANCE PICKARD MD : 1980 BED: 1 DIS: STATUS: ADM IN TLOC: SPEC: [id number] SERENA: 09/19/24 STATUS: RES REQ: [id number] RECD: 09/19/[address]: CONSTANCE PICKARD MD SOURCE: FOOT ENTR: 09/19/[address]: JAEMS GUO M.D. SPDESC: FOOT RIGHT HEENA GREENFIELD DPM ORDERED: ADIN CULTURE, AEROBIC CULTURE Procedure Result Rebecca Date-Time -------- ---- ANAEROBIC CULTURE Preliminary 09/22/24 MRL COLONY DESCRIPTION: REPORT 1: NO ANAEROBES AT 16-23 HOURS; STUDIES TO CONTINUE REPORT 2: NO ANAEROBES AT 36-47 HOURS; STUDIES TO CONTINUE Test(s) performed by: [facility] [address] [facility] [place] [address] AEROBIC CULTURE Preliminary 09/22/24 MRL COLONY DESCRIPTION: REPORT 1: 1+ GRAM POSITIVE COCCI IN CLUSTERS STAPHYLOCOCCUS AUREUS SENSITIVITY TO FOLLOW REPORT 2: 1+ GRAM NEGATIVE RODS IDENTIFICATION AND SENSITIVITY TO FOLLOW STAPHYLOCOCCUS AUREUS S. AUREUS M.I.C. RX --------- ---- ERYTHROMYCIN <=0.5 S GENTAMICIN <=4 S LEVOFLOXACIN <=1 S VANCOMYCIN 1 S OXACILLIN SUZIE 1 S RIFAMPIN <=1 S PENICILLIN >8 Edgar TRIMETHOPRIM/SUFLAMETHOXAZOLE <=0.5/9.5 S ASSESSMENT: Right 5th toe diabetic ulcer infection with methicillin sensitive Staphylococcus aureus and Pseudomonas aeruginosa. Right 5th toe with osteomyelitis. Peripheral vascular disease, status post peripheral angiogram on 09/22/2024. Diabetes mellitus. Obesity. PLAN: Discontinue cefazolin IV. Start cefepime 1 g IV every 8 hours. Continue wound care as recommended by dynamite reclaimer. Continue pain management. Continue monitoring glucose levels. Case management evaluation for referral to [facility] for outpatient IV antibiotics. New Prescription was written for cefazolin 2 g IV every 8 hours x 6 weeks. This case was reviewed and discussed with my supervising physician and the above assessment and plan was formulated and agreed upon. ATTESTATION BY PHYSICIAN I have seen and examined the patient. I reviewed the documentation, medical decision making, and treatment plan as noted by the mid-level provider above. I agree with the findings and plan of care. BEBE VIGIL MD, MIRTA L [facility] Sep 23, 2024 14:03
--- NOTE | 2024-09-23 15:46 | PN ---
No peripheral arterial disease documented at angiography, no bleeding or hematoma at catheterization site. Discussed results with the patient and she is pleased. Discussed results with Dr. Calabrese as well. We will sign off now. Vitals/Labs Vital Signs Date Time Temp Pulse Resp B/P (MAP) Pulse Ox O2 Delivery O2 Flow Rate FiO2 09/23/24 12:00 97.9 79 18 97/63 100 Room Air 09/23/24 09:54 0 21 Laboratory Tests 09/23/24 03:35 Medications Current Medications Sodium Chloride 1,000 ml @ 80 mls/hr [id number] IV Last administered on 09/21/24at 21:40; Start 09/19/24 at 20:00; Stop 09/22/24 at 20:15; Status DC Acetaminophen 500 mg Q6H PRN PO; Start 09/19/24 at 20:00; Stop 10/19/24 at 19:59 Insulin Human Regular INSULIN SLIDING SCAL... ACHS SQ Last administered on 09/23/24at 12:57; Start 09/19/24 at 21:00; Stop 10/19/24 at 20:59 Morphine Sulfate 2 mg Q6H PRN IVP; Start 09/19/24 at 20:00; Stop 09/26/24 at 19:59 Vancomycin HCl 1 each AD IV; Start 09/19/24 at 20:30; Stop 09/22/24 at 12:46; Status DC Cefepime HCl 2 gm Q12H IVPB Last administered on 09/22/24at 09:17; Start 09/19/24 at 22:00; Stop 09/22/24 at 12:46; Status DC Insulin Glargine 10 units HS SQ Last administered on 09/22/24at 21:50; Start 09/19/24 at 21:00; Stop 10/19/24 at 20:59 Dextrose 50 ml AD PRN IV; Start 09/19/24 at 20:30; Stop 10/19/24 at 20:29 Glucagon 1 mg AD PRN IM; Start 09/19/24 at 20:30; Stop 10/19/24 at 20:29 Ondansetron HCl 4 mg Q6H PRN IVP; Start 09/19/24 at 20:30; Stop 10/19/24 at 20:29 Sodium Chloride 500 ml @ 0 mls/hr ONCE ONCE IV Last administered on 09/19/24at 20:30; Start 09/19/24 at 20:30; Stop 09/19/24 at 20:36; Status DC Metronidazole/ Sodium Chloride 100 ml @ 100 mls/hr Q8H6 IVPB Last administered on 09/23/24at 05:14; Start 09/20/24 at 00:00; Stop 09/23/24 at 12:47; Status DC Vancomycin HCl 250 ml @ 125 mls/hr Q8H IV Last administered on 09/22/24at 00:30; Start 09/20/24 at 01:00; Stop 09/22/24 at 08:38; Status DC Magnesium Sulfate 50 ml @ 0 mls/hr PROTOCOL IV Last administered on 09/23/24at 05:28; Start 09/19/24 at 22:30; Stop 10/19/24 at 22:29 Lactulose 20 gm BID PRN PO; Start 09/20/24 at 10:00; Stop 10/20/24 at 09:59 Aspirin 81 mg DAILY PO Last administered on 09/23/24at 09:53; Start 09/21/24 at 09:00; Stop 10/21/24 at 08:59 Atorvastatin Calcium 20 mg HS PO Last administered on 09/22/24at 21:51; Start 09/20/24 at 21:00; Stop 10/20/24 at 20:59 Potassium Chloride 100 ml @ 100 mls/hr AD PRN IV; Start 09/20/24 at 10:30; Stop 10/20/24 at 10:29 Potassium Chloride 20 meq AD PRN PO; Start 09/20/24 at 10:30; Stop 10/20/24 at 10:29 Potassium Chloride 20 meq AD PRN PO Last administered on 09/23/24at 09:53; Start 09/20/24 at 10:30; Stop 10/20/24 at 10:29 Cadexomer Iodine 1 APPL ONCE TP Last administered on 09/20/24at 12:23; Start 09/20/24 at 11:00; Stop 09/20/24 at 18:08; Status DC Nystatin 1 APPL BID TP; Start 09/20/24 at 21:00; Stop 09/20/24 at 14:54; Status DC Nystatin 1 APPL BID TP Last administered on 09/23/24at 09:54; Start 09/20/24 at 15:00; Stop 10/20/24 at 14:59 Enoxaparin Sodium 40 mg HS SQ Last administered on 09/22/24at 22:04; Start 09/20/24 at 21:00; Stop 10/20/24 at 20:59 Vancomycin HCl 250 ml @ 125 mls/hr Q8H IV; Start 09/22/24 at 17:00; Stop 09/22/24 at 12:46; Status DC Cefazolin Sodium 2 gm Q8H IVPB Last administered on 09/23/24at 04:24; Start 09/22/24 at 13:00; Stop 09/23/24 at 12:47; Status DC Lidocaine HCl 20 ml STK-MED ONCE .ROUTE; Start 09/22/24 at 18:51; Stop 09/22/24 at 18:51; Status DC Iodixanol 100 ml STK-MED ONCE .ROUTE; Start 09/22/24 at 18:51; Stop 09/22/24 at 18:52; Status DC Heparin Sodium/ Sodium Chloride 1,000 ml @ As Directed STK-MED ONCE IV; Start 09/22/24 at 18:52; Stop 09/22/24 at 18:52; Status DC Nitroglycerin 50 mg STK-MED ONCE .ROUTE; Start 09/22/24 at 18:52; Stop 09/22/24 at 18:52; Status DC Fentanyl Citrate 100 mcg STK-MED ONCE .ROUTE; Start 09/22/24 at 19:17; Stop 09/22/24 at 19:22; Status DC Midazolam HCl 2 mg STK-MED ONCE .ROUTE; Start 09/22/24 at 19:17; Stop 09/22/24 at 19:22; Status DC Sodium Chloride 1,000 ml @ 150 mls/hr Q6H40M IV Last administered on 09/22/24at 20:45; Start 09/22/24 at 20:30; Stop 09/23/24 at 00:29; Status DC Fluconazole 100 mg ONCE ONCE PO Last administered on 09/23/24at 12:57; Start 09/23/24 at 12:00; Stop 09/23/24 at 12:01; Status DC Cefepime HCl 1 gm Q8H IVPB Last administered on 09/23/24at 12:57; Start 09/23/24 at 13:00; Stop 10/14/24 at 12:59 WAYNE BETH MD Sep 23, 2024 15:46
--- NOTE | 2024-09-23 17:23 | NUR ---
DISCHARGE PT VERBALIZED UNDERSTANDING OF DISCHARGE INSTRUCTIONS PT HAD NO FURTHER QUESTIONS AT TIME OF DISCHARGE PT VERBALIZED UNDERSTANDING OF WOUND CARE FOLLOW UP PT GATHERED AND TOOK ALL BELONGINGS
== END 2024-09-23 19:15 | disposition home or self-care (01) | DRG 638 ==
LOC: 3CH 19:00
PROVIDERS: ADMIT Internal Medicine; ATTEND Internal Medicine
PROC: B4101ZZ Fluoroscopy of Abdominal Aorta using Low Osmolar Contrast (ICD-10-PCS; principal; 2024-09-19)
PROC: B41C1ZZ Fluoroscopy of Pelvic Arteries using Low Osmolar Contrast (ICD-10-PCS; 2024-09-19)
PROC: B41F1ZZ Fluoroscopy of Right Lower Extremity Arteries using Low Osmolar Contrast (ICD-10-PCS; 2024-09-19)
PROC: 02HV33Z Insertion of Infusion Device into Superior Vena Cava, Percutaneous Approach (ICD-10-PCS; 2024-09-22)
DX: E11.69 Type 2 diabetes mellitus with other specified complication (principal); L03.115 Cellulitis of right lower limb; M86.171 Other acute osteomyelitis, right ankle and foot; E11.621 Type 2 diabetes mellitus with foot ulcer; L97.519 Non-pressure chronic ulcer of other part of right foot with unspecified severity; Z20.822 Contact with and (suspected) exposure to COVID-19; L03.031 Cellulitis of right toe; E11.40 Type 2 diabetes mellitus with diabetic neuropathy, unspecified; E66.01 Morbid (severe) obesity due to excess calories; E78.5 Hyperlipidemia, unspecified; L40.9 Psoriasis, unspecified; B95.61 Methicillin susceptible Staphylococcus aureus infection as the cause of diseases classified elsewhere; B37.9 Candidiasis, unspecified; B96.5 Pseudomonas (aeruginosa) (mallei) (pseudomallei) as the cause of diseases classified elsewhere; E11.51 Type 2 diabetes mellitus with diabetic peripheral angiopathy without gangrene; I10 Essential (primary) hypertension; I87.2 Venous insufficiency (chronic) (peripheral); Z79.82 Long term (current) use of aspirin; Z83.3 Family history of diabetes mellitus; Z87.891 Personal history of nicotine dependence; Z89.429 Acquired absence of other toe(s), unspecified side; Z90.49 Acquired absence of other specified parts of digestive tract; Z98.51 Tubal ligation status; Z68.32 Body mass index [BMI] 32.0-32.9, adult
CPT/HCPCS: 36247; 36415; 71045; 73630; 75716; 80053; 80202; 82550; 82948; 83036; 83605; 83735; 84145; 84443; 85025; 85610; 85651; 85730; 86140; 87040; 87070; 87076; 87086; 87186; 93926; 93970; 99156; 99157; C1760; C1894; G0378; J0692; J1644; J1650; J1815; J2250; J3010; J3475; J3490; Q9967; 3370; C1769; J0690

== ENCOUNTER → 2024-09-30 | Outpatient (CLI) | payer BC ==
[~2024-09-30] MED LIST: ASPI-1005 PO; ATOR20TA65 PO; FLUC150T48 PO; INSU100V37 SQ; LIDOCAINE HCL 4% LTA SOL 4 ML VIAL TP ONE; METF-446 PO; SEMA2PEN SQ
== END | disposition home or self-care (01) ==
LOC: WHH 08:15
PROVIDERS: ATTEND Podiatrist Foot & Ankle Surgery
DX: E11.621 Type 2 diabetes mellitus with foot ulcer (principal); L97.512 Non-pressure chronic ulcer of other part of right foot with fat layer exposed; E11.69 Type 2 diabetes mellitus with other specified complication; M86.171 Other acute osteomyelitis, right ankle and foot; B35.1 Tinea unguium; M20.41 Other hammer toe(s) (acquired), right foot; L85.9 Epidermal thickening, unspecified; E11.42 Type 2 diabetes mellitus with diabetic polyneuropathy; E11.51 Type 2 diabetes mellitus with diabetic peripheral angiopathy without gangrene; I10 Essential (primary) hypertension; I87.2 Venous insufficiency (chronic) (peripheral); L40.9 Psoriasis, unspecified; E78.5 Hyperlipidemia, unspecified; E66.01 Morbid (severe) obesity due to excess calories; Z68.32 Body mass index [BMI] 32.0-32.9, adult; Z87.891 Personal history of nicotine dependence; Z90.49 Acquired absence of other specified parts of digestive tract; Z79.82 Long term (current) use of aspirin
CPT/HCPCS: 11042; A4450

== ENCOUNTER → 2024-10-07 | Outpatient (CLI) | payer BC ==
[~2024-10-07] MED LIST changes: -LIDOCAINE HCL 4% LTA SOL 4 ML VIAL TP ONE
== END | disposition home or self-care (01) ==
LOC: WHH 08:09
PROVIDERS: ATTEND Podiatrist Foot & Ankle Surgery
DX: E11.621 Type 2 diabetes mellitus with foot ulcer (principal); L97.512 Non-pressure chronic ulcer of other part of right foot with fat layer exposed; E11.69 Type 2 diabetes mellitus with other specified complication; M86.171 Other acute osteomyelitis, right ankle and foot; B35.1 Tinea unguium; M20.41 Other hammer toe(s) (acquired), right foot; L85.9 Epidermal thickening, unspecified; E11.42 Type 2 diabetes mellitus with diabetic polyneuropathy; E11.51 Type 2 diabetes mellitus with diabetic peripheral angiopathy without gangrene; I10 Essential (primary) hypertension; I87.2 Venous insufficiency (chronic) (peripheral); L40.9 Psoriasis, unspecified; E78.5 Hyperlipidemia, unspecified; E66.01 Morbid (severe) obesity due to excess calories; Z68.32 Body mass index [BMI] 32.0-32.9, adult; Z87.891 Personal history of nicotine dependence; Z90.49 Acquired absence of other specified parts of digestive tract; Z79.82 Long term (current) use of aspirin
CPT/HCPCS: 11042; A6209

== ENCOUNTER → 2024-11-04 | Outpatient (CLI) | payer BC | END | disposition home or self-care (01) | LOC: WHH 08:06 | PROVIDERS: ATTEND Podiatrist Foot & Ankle Surgery | DX: E11.621 Type 2 diabetes mellitus with foot ulcer (principal); L97.512 Non-pressure chronic ulcer of other part of right foot with fat layer exposed; E11.69 Type 2 diabetes mellitus with other specified complication; M86.171 Other acute osteomyelitis, right ankle and foot; B35.1 Tinea unguium; L85.9 Epidermal thickening, unspecified; E11.42 Type 2 diabetes mellitus with diabetic polyneuropathy; E11.51 Type 2 diabetes mellitus with diabetic peripheral angiopathy without gangrene; I10 Essential (primary) hypertension; I87.2 Venous insufficiency (chronic) (peripheral); L40.9 Psoriasis, unspecified; E78.5 Hyperlipidemia, unspecified; E66.01 Morbid (severe) obesity due to excess calories; M20.41 Other hammer toe(s) (acquired), right foot; Z68.32 Body mass index [BMI] 32.0-32.9, adult; Z87.891 Personal history of nicotine dependence; Z90.49 Acquired absence of other specified parts of digestive tract; Z79.82 Long term (current) use of aspirin | CPT/HCPCS: 97597 ==

== ENCOUNTER → 2024-11-18 | Outpatient (CLI) | payer BC | END | disposition home or self-care (01) | LOC: WHH 08:10 | PROVIDERS: ATTEND Podiatrist Foot & Ankle Surgery | DX: E11.621 Type 2 diabetes mellitus with foot ulcer (principal); L97.511 Non-pressure chronic ulcer of other part of right foot limited to breakdown of skin; E11.69 Type 2 diabetes mellitus with other specified complication; M86.171 Other acute osteomyelitis, right ankle and foot; B35.1 Tinea unguium; L85.9 Epidermal thickening, unspecified; E11.42 Type 2 diabetes mellitus with diabetic polyneuropathy; E11.51 Type 2 diabetes mellitus with diabetic peripheral angiopathy without gangrene; I10 Essential (primary) hypertension; I87.2 Venous insufficiency (chronic) (peripheral); L40.9 Psoriasis, unspecified; E78.5 Hyperlipidemia, unspecified; E66.01 Morbid (severe) obesity due to excess calories; M20.41 Other hammer toe(s) (acquired), right foot; Z68.32 Body mass index [BMI] 32.0-32.9, adult; Z87.891 Personal history of nicotine dependence; Z90.49 Acquired absence of other specified parts of digestive tract; Z79.82 Long term (current) use of aspirin | CPT/HCPCS: 97597; A4450 ==

== ENCOUNTER → 2024-12-02 | Outpatient (CLI) | payer BC | END | disposition home or self-care (01) | LOC: WHH 08:08 | PROVIDERS: ATTEND Podiatrist Foot & Ankle Surgery | DX: E11.621 Type 2 diabetes mellitus with foot ulcer (principal); L97.512 Non-pressure chronic ulcer of other part of right foot with fat layer exposed; E11.69 Type 2 diabetes mellitus with other specified complication; M86.171 Other acute osteomyelitis, right ankle and foot; B35.1 Tinea unguium; L85.9 Epidermal thickening, unspecified; E11.42 Type 2 diabetes mellitus with diabetic polyneuropathy; E11.51 Type 2 diabetes mellitus with diabetic peripheral angiopathy without gangrene; I10 Essential (primary) hypertension; L57.0 Actinic keratosis; I87.2 Venous insufficiency (chronic) (peripheral); L40.9 Psoriasis, unspecified; E78.5 Hyperlipidemia, unspecified; E66.01 Morbid (severe) obesity due to excess calories; M20.41 Other hammer toe(s) (acquired), right foot; Z68.32 Body mass index [BMI] 32.0-32.9, adult; Z87.891 Personal history of nicotine dependence; Z90.49 Acquired absence of other specified parts of digestive tract; Z79.82 Long term (current) use of aspirin | CPT/HCPCS: 11042 ==

== ENCOUNTER → 2025-01-27 | Outpatient (CLI) | payer BC ==
[~2025-01-27] MED LIST changes: +IODOSORB GEL 40GM TP ONE
== END | disposition home or self-care (01) ==
LOC: WHH 08:22
PROVIDERS: ATTEND Podiatrist Foot & Ankle Surgery
DX: E11.621 Type 2 diabetes mellitus with foot ulcer (principal); L97.512 Non-pressure chronic ulcer of other part of right foot with fat layer exposed; L84 Corns and callosities; E11.69 Type 2 diabetes mellitus with other specified complication; M86.171 Other acute osteomyelitis, right ankle and foot; B35.1 Tinea unguium; L85.9 Epidermal thickening, unspecified; E11.610 Type 2 diabetes mellitus with diabetic neuropathic arthropathy; E11.42 Type 2 diabetes mellitus with diabetic polyneuropathy; E11.51 Type 2 diabetes mellitus with diabetic peripheral angiopathy without gangrene; I10 Essential (primary) hypertension; L57.0 Actinic keratosis; I87.2 Venous insufficiency (chronic) (peripheral); L40.9 Psoriasis, unspecified; E78.5 Hyperlipidemia, unspecified; E66.01 Morbid (severe) obesity due to excess calories; Z68.32 Body mass index [BMI] 32.0-32.9, adult; Z87.891 Personal history of nicotine dependence; Z90.49 Acquired absence of other specified parts of digestive tract; Z79.82 Long term (current) use of aspirin; Z89.432 Acquired absence of left foot
CPT/HCPCS: 11042

== ENCOUNTER → 2025-02-03 | Outpatient (CLI) | payer BC ==
[~2025-02-03] MED LIST changes: -IODOSORB GEL 40GM TP ONE
== END | disposition home or self-care (01) ==
LOC: WHH 08:23
PROVIDERS: ATTEND Podiatrist Foot & Ankle Surgery
DX: E11.621 Type 2 diabetes mellitus with foot ulcer (principal); L97.512 Non-pressure chronic ulcer of other part of right foot with fat layer exposed; L84 Corns and callosities; E11.69 Type 2 diabetes mellitus with other specified complication; M86.171 Other acute osteomyelitis, right ankle and foot; B35.1 Tinea unguium; L85.9 Epidermal thickening, unspecified; E11.610 Type 2 diabetes mellitus with diabetic neuropathic arthropathy; E11.42 Type 2 diabetes mellitus with diabetic polyneuropathy; E11.51 Type 2 diabetes mellitus with diabetic peripheral angiopathy without gangrene; I10 Essential (primary) hypertension; L57.0 Actinic keratosis; I87.2 Venous insufficiency (chronic) (peripheral); L40.9 Psoriasis, unspecified; E78.5 Hyperlipidemia, unspecified; E66.01 Morbid (severe) obesity due to excess calories; Z68.32 Body mass index [BMI] 32.0-32.9, adult; Z87.891 Personal history of nicotine dependence; Z90.49 Acquired absence of other specified parts of digestive tract; Z79.82 Long term (current) use of aspirin; Z89.432 Acquired absence of left foot
CPT/HCPCS: 97597

== ENCOUNTER → 2025-02-17 | Outpatient (CLI) | payer BC | END | disposition home or self-care (01) | LOC: WHH 08:16 | PROVIDERS: ATTEND Podiatrist Foot & Ankle Surgery | DX: E11.621 Type 2 diabetes mellitus with foot ulcer (principal); L97.512 Non-pressure chronic ulcer of other part of right foot with fat layer exposed; E11.69 Type 2 diabetes mellitus with other specified complication; M86.171 Other acute osteomyelitis, right ankle and foot; L84 Corns and callosities; B35.1 Tinea unguium; L85.9 Epidermal thickening, unspecified; E11.610 Type 2 diabetes mellitus with diabetic neuropathic arthropathy; E11.42 Type 2 diabetes mellitus with diabetic polyneuropathy; E11.51 Type 2 diabetes mellitus with diabetic peripheral angiopathy without gangrene; I10 Essential (primary) hypertension; L57.0 Actinic keratosis; I87.2 Venous insufficiency (chronic) (peripheral); L40.9 Psoriasis, unspecified; E78.5 Hyperlipidemia, unspecified; E66.01 Morbid (severe) obesity due to excess calories; Z68.32 Body mass index [BMI] 32.0-32.9, adult; Z87.891 Personal history of nicotine dependence; Z90.49 Acquired absence of other specified parts of digestive tract; Z79.82 Long term (current) use of aspirin; Z89.432 Acquired absence of left foot | CPT/HCPCS: 97597; A4450 ==

== ENCOUNTER → 2025-02-26 | Outpatient (CLI) | payer BC ==
--- NOTE | 2025-03-04 20:59 | HMCIMG ---
EXAM: Three-phase bone scan. INDICATION: Osteomyelitis right small toe REFERENCE EXAMINATION: None TECHNIQUE: 22.1 mCi of technetium 99m MDP intravenously. Immediately after tracer administration, blood flow and blood pool images of the area of interest were acquired. Delayed images were acquired at approximately 3 hours from tracer administration. FINDINGS: The radiopharmaceutical is seen in the expected biodistribution. A three-phase bone scan was performed with attention directed to the bilateral feet. Perfusion images show normal uptake to bilateral feet. Early blood pool images demonstrate increased activity to the right 5th toe and left 1st and 2nd toes. Delayed images of the feet show increased activity to the right 5th toe corresponding with the clinical history of osteomyelitis. Increased uptake is also noted in the left 1st and 2nd toes - likely arthritic. IMPRESSION: Findings may correlate with osteomyelitis of the right 5th toe. Recommend MRI correlation. /[place]
== END | disposition home or self-care (01) ==
LOC: RAH 14:15
PROVIDERS: ATTEND Student in an Organized Health Care Education/Training Program
DX: M86.171 Other acute osteomyelitis, right ankle and foot (principal); M86.8X7 Other osteomyelitis, ankle and foot
CPT/HCPCS: 78315; A9503

== ENCOUNTER → 2025-03-10 | Outpatient (CLI) | payer BC ==
[~2025-03-10] MED LIST changes: +DAPA5TAB PO; +SILVER NITRATE APPLICATOR 1 SWAB TP ONE
== END | disposition home or self-care (01) ==
LOC: WHH 08:16
PROVIDERS: ATTEND Podiatrist Foot & Ankle Surgery
DX: E11.621 Type 2 diabetes mellitus with foot ulcer (principal); L97.512 Non-pressure chronic ulcer of other part of right foot with fat layer exposed; E11.69 Type 2 diabetes mellitus with other specified complication; M86.171 Other acute osteomyelitis, right ankle and foot; L84 Corns and callosities; B35.1 Tinea unguium; L85.9 Epidermal thickening, unspecified; E11.610 Type 2 diabetes mellitus with diabetic neuropathic arthropathy; E11.42 Type 2 diabetes mellitus with diabetic polyneuropathy; E11.51 Type 2 diabetes mellitus with diabetic peripheral angiopathy without gangrene; I10 Essential (primary) hypertension; L57.0 Actinic keratosis; I87.2 Venous insufficiency (chronic) (peripheral); L40.9 Psoriasis, unspecified; E78.5 Hyperlipidemia, unspecified; E66.01 Morbid (severe) obesity due to excess calories; Z68.32 Body mass index [BMI] 32.0-32.9, adult; Z87.891 Personal history of nicotine dependence; Z90.49 Acquired absence of other specified parts of digestive tract; Z79.82 Long term (current) use of aspirin; Z89.432 Acquired absence of left foot
CPT/HCPCS: 11042; 11055; 11720

== ENCOUNTER → 2025-03-15 | Outpatient (CLI) | payer BC ==
[~2025-03-15] MED LIST changes: -DAPA5TAB PO; -SILVER NITRATE APPLICATOR 1 SWAB TP ONE
== END | disposition home or self-care (01) ==
LOC: WHH 11:08
PROVIDERS: ATTEND Podiatrist Foot & Ankle Surgery
DX: E11.621 Type 2 diabetes mellitus with foot ulcer (principal); L97.512 Non-pressure chronic ulcer of other part of right foot with fat layer exposed; E11.69 Type 2 diabetes mellitus with other specified complication; M86.171 Other acute osteomyelitis, right ankle and foot; L84 Corns and callosities; B35.1 Tinea unguium; L85.9 Epidermal thickening, unspecified; E11.610 Type 2 diabetes mellitus with diabetic neuropathic arthropathy; E11.42 Type 2 diabetes mellitus with diabetic polyneuropathy; E11.51 Type 2 diabetes mellitus with diabetic peripheral angiopathy without gangrene; I10 Essential (primary) hypertension; L57.0 Actinic keratosis; I87.2 Venous insufficiency (chronic) (peripheral); L40.9 Psoriasis, unspecified; E78.5 Hyperlipidemia, unspecified; E66.01 Morbid (severe) obesity due to excess calories; Z68.32 Body mass index [BMI] 32.0-32.9, adult; Z87.891 Personal history of nicotine dependence; Z90.49 Acquired absence of other specified parts of digestive tract; Z79.82 Long term (current) use of aspirin; Z89.432 Acquired absence of left foot
CPT/HCPCS: 93923

== ENCOUNTER 2025-03-24 06:00 | Day surgery (SDC) | payer BC ==
--- NOTE | 2025-03-23 14:39 | EKG ---
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
[2025-03-23 14:57] VITALS: BP 100/57; PULSE 96; RESP 17; TEMP 98.2
[~2025-03-24] VITALS: Ht 180.3 cm; Wt 102.1 kg
[2025-03-24] VITALS (13 sets, daily range): BP systolic 96–137; BP diastolic 67–80; PULSE 67–90; RESP 12–18; TEMP 97.1–97.5
[~2025-03-24 06:00] MED LIST changes: -ASPI-1005 PO; +DAPA5TAB PO; -FLUC150T48 PO
[2025-03-24] MEDS ORDERED: GABAPENTIN 300 MG CAPSULE ONE (06:44)
[2025-03-24] MEDS ORDERED: LIDOCAINE PF 100MG/5ML (2%) SYRINGE 5ML ONE (06:50)
[2025-03-24] MEDS: LIDOCAINE HCL 1% 20 ML VIAL ONE (07:19)
--- NOTE | 2025-03-24 08:24 | OP ---
Operative Note: DATE OF PROCEDURE: 03/24/25 SURGEON: HEENA GREENFIELD DPM PROJECT FINANCE ANALYST: OR tech ANESTHESIA: General and local infiltration 1% xylocaine and 0.5% bupivacaine plain total of 16 cc to the forefoot right ANESTHESIOLOGIST/SENIOR APPLICATIONS ENGINEER: Starla Potts CRNA PREOPERATIVE DIAGNOSIS: Digital flexion contraction 3rd toe right and hallux right hammertoes POSTOPERATIVE DIAGNOSIS: Digital flexion contraction 3rd toe right and hammertoe right 3rd and hallux SYNOPSIS: Diabetic patient having recurrent ulcerations distal aspect of toe secondary to flexion contraction of the toes hammer digit contraction. At this time decision was made for tenotomies to release the tendon tension on the flexion of the toes to prevent ulcerations distal aspect secondary to her diabetes. No guarantees were offered at this time. PROCEDURE: Flexor digitorum longus tenotomy of 3rd toe right foot Flexor hallucis longus tenotomy hallux right foot ESTIMATED BLOOD LOSS: Less than 3 cc INDICATIONS: Flexion contraction of toes causing ulcerations distal toes on diabetic patient. Right foot DESCRIPTION OF PROCEDURE: The patient was brought into the operating room table placed in the supine position under general anesthesia the right foot was prepped and draped in the usual sterile fashion. At this time injection 1% xylocaine and 0.5% Marcaine plain was given a total of 16 cc to the forefoot. At this time attention was directed towards the plantar aspect of the hallux where a lineal incision was done on the plantar medial aspect of the hallux at the level of the PIPJ this incision was carried down through subcutaneous tissue down to tendon level the flexor hallucis tendon was identified at this time and a transverse tenotomy was performed along the tendon releasing the plantar pull of the tendon. The area was irrigated with copious amounts saline solution and the skin was reapproximated utilizing 4-0 nylon on the horizontal mattress fashion. At this time attention was directed towards the 3rd toe of the right foot where a linear incision was performed plantarly along the PIPJ area the incision was carried down through subcutaneous tissue down to tendon level. The the flexor digitorum longus tendon was identified and a transverse incision through the tendon was performed releasing it. By this mean releasing the plantar pull of the tendon on the toe. The area was irrigated with copious amounts saline solution. Sutures was utilized for closure 4.0 nylon on the simple fashion on the plantar aspect of the toe. Dressing was applied to both toes utilizing Adaptic 4x4s and Kerlix patient tolerated procedure and anesthesia well was sent to recovery room then discharged home today and [facility] up [facility] for postoperative care. HEENA GREENFIELD DPM Mar 24, 2025 08:24
--- NOTE | 2025-03-24 09:00 | NUR ---
PT AND SON GIVEN VERBAL AND WRITTEN DISCHARGE INSTRUCTIONS IV REMOVED SITE ASYMPTOMATIC. PT TAKEN OUT VIA WHEELCHAIR SON DRIVING.
== END 2025-03-24 09:05 | disposition home or self-care (01) ==
LOC: DAH 06:00
PROVIDERS: ATTEND Podiatrist Foot & Ankle Surgery
DX: M20.41 Other hammer toe(s) (acquired), right foot (principal); E11.621 Type 2 diabetes mellitus with foot ulcer
CPT/HCPCS: 28232 ×2; 93005; 82948; 81025; A6260; A4663; J3010; J1100; J2003; J3490 ×2; J2704; J2405; J0665; J2371; J0690; A4649; A4930; A4215; A4213; A4222; A4221; A4216; A4223 ×2

== ENCOUNTER → 2025-03-31 | Outpatient (CLI) | payer BC ==
[~2025-03-31] MED LIST changes: +ASPI-1005 PO; +FLUC150T48 PO
== END | disposition home or self-care (01) ==
LOC: WHH 08:26
PROVIDERS: ATTEND Podiatrist Foot & Ankle Surgery
DX: E11.621 Type 2 diabetes mellitus with foot ulcer (principal); L97.512 Non-pressure chronic ulcer of other part of right foot with fat layer exposed; T81.89XA Other complications of procedures, not elsewhere classified, initial encounter; E11.69 Type 2 diabetes mellitus with other specified complication; M86.171 Other acute osteomyelitis, right ankle and foot; L84 Corns and callosities; B35.1 Tinea unguium; L85.9 Epidermal thickening, unspecified; E11.610 Type 2 diabetes mellitus with diabetic neuropathic arthropathy; E11.42 Type 2 diabetes mellitus with diabetic polyneuropathy; E11.51 Type 2 diabetes mellitus with diabetic peripheral angiopathy without gangrene; I10 Essential (primary) hypertension; L57.0 Actinic keratosis; I87.2 Venous insufficiency (chronic) (peripheral); L40.9 Psoriasis, unspecified; E78.5 Hyperlipidemia, unspecified; E66.01 Morbid (severe) obesity due to excess calories; Z68.32 Body mass index [BMI] 32.0-32.9, adult; Z87.891 Personal history of nicotine dependence; Z90.49 Acquired absence of other specified parts of digestive tract; Z79.82 Long term (current) use of aspirin; Z89.432 Acquired absence of left foot; Y83.8 Other surgical procedures as the cause of abnormal reaction of the patient, or of later complication, without mention of misadventure at the time of the procedure; Y92.238 Other place in hospital as the place of occurrence of the external cause
CPT/HCPCS: 99214; A4450

== ENCOUNTER → 2025-04-05 | Outpatient (CLI) | payer BC ==
[~2025-04-05] MED LIST changes: -ASPI-1005 PO; -FLUC150T48 PO
== END | disposition home or self-care (01) ==
LOC: WHH 07:57
PROVIDERS: ATTEND Family Medicine
DX: E11.621 Type 2 diabetes mellitus with foot ulcer (principal); L97.512 Non-pressure chronic ulcer of other part of right foot with fat layer exposed; T81.89XD Other complications of procedures, not elsewhere classified, subsequent encounter; E11.69 Type 2 diabetes mellitus with other specified complication; M86.171 Other acute osteomyelitis, right ankle and foot; L84 Corns and callosities; B35.1 Tinea unguium; L85.9 Epidermal thickening, unspecified; E11.610 Type 2 diabetes mellitus with diabetic neuropathic arthropathy; E11.42 Type 2 diabetes mellitus with diabetic polyneuropathy; E11.51 Type 2 diabetes mellitus with diabetic peripheral angiopathy without gangrene; I10 Essential (primary) hypertension; L57.0 Actinic keratosis; I87.2 Venous insufficiency (chronic) (peripheral); L40.9 Psoriasis, unspecified; E78.5 Hyperlipidemia, unspecified; E66.01 Morbid (severe) obesity due to excess calories; Z68.32 Body mass index [BMI] 32.0-32.9, adult; Z87.891 Personal history of nicotine dependence; Z90.49 Acquired absence of other specified parts of digestive tract; Z79.82 Long term (current) use of aspirin; Z89.432 Acquired absence of left foot; Y83.8 Other surgical procedures as the cause of abnormal reaction of the patient, or of later complication, without mention of misadventure at the time of the procedure
CPT/HCPCS: 82948; G0277

== ENCOUNTER → 2025-04-07 | Outpatient (CLI) | payer BC | END | disposition home or self-care (01) | LOC: WHH 07:55 | PROVIDERS: ATTEND Podiatrist Foot & Ankle Surgery | DX: E11.621 Type 2 diabetes mellitus with foot ulcer (principal); L97.512 Non-pressure chronic ulcer of other part of right foot with fat layer exposed; T81.89XD Other complications of procedures, not elsewhere classified, subsequent encounter; E11.69 Type 2 diabetes mellitus with other specified complication; M86.671 Other chronic osteomyelitis, right ankle and foot; L84 Corns and callosities; E11.610 Type 2 diabetes mellitus with diabetic neuropathic arthropathy; E11.42 Type 2 diabetes mellitus with diabetic polyneuropathy; E11.51 Type 2 diabetes mellitus with diabetic peripheral angiopathy without gangrene; I10 Essential (primary) hypertension; L85.9 Epidermal thickening, unspecified; B35.1 Tinea unguium; L57.0 Actinic keratosis; I87.2 Venous insufficiency (chronic) (peripheral); L40.9 Psoriasis, unspecified; E78.5 Hyperlipidemia, unspecified; E66.01 Morbid (severe) obesity due to excess calories; Z68.32 Body mass index [BMI] 32.0-32.9, adult; Z87.891 Personal history of nicotine dependence; Z90.49 Acquired absence of other specified parts of digestive tract; Z79.82 Long term (current) use of aspirin; Z89.432 Acquired absence of left foot; Y83.8 Other surgical procedures as the cause of abnormal reaction of the patient, or of later complication, without mention of misadventure at the time of the procedure | CPT/HCPCS: 82948; 11056; G0277 ==

== ENCOUNTER → 2025-04-08 | Outpatient (CLI) | payer BC | END | disposition home or self-care (01) | LOC: WHH 08:01 | PROVIDERS: ATTEND Family Medicine | DX: M86.671 Other chronic osteomyelitis, right ankle and foot (principal); E11.69 Type 2 diabetes mellitus with other specified complication; E11.621 Type 2 diabetes mellitus with foot ulcer; L97.512 Non-pressure chronic ulcer of other part of right foot with fat layer exposed; T81.89XD Other complications of procedures, not elsewhere classified, subsequent encounter; L84 Corns and callosities; B35.1 Tinea unguium; L85.9 Epidermal thickening, unspecified; E11.610 Type 2 diabetes mellitus with diabetic neuropathic arthropathy; E11.42 Type 2 diabetes mellitus with diabetic polyneuropathy; E11.51 Type 2 diabetes mellitus with diabetic peripheral angiopathy without gangrene; I10 Essential (primary) hypertension; L57.0 Actinic keratosis; I87.2 Venous insufficiency (chronic) (peripheral); L40.9 Psoriasis, unspecified; E78.5 Hyperlipidemia, unspecified; E66.01 Morbid (severe) obesity due to excess calories; Z68.32 Body mass index [BMI] 32.0-32.9, adult; Z87.891 Personal history of nicotine dependence; Z90.49 Acquired absence of other specified parts of digestive tract; Z79.82 Long term (current) use of aspirin; Z89.432 Acquired absence of left foot; Y83.8 Other surgical procedures as the cause of abnormal reaction of the patient, or of later complication, without mention of misadventure at the time of the procedure | CPT/HCPCS: 82948; G0277 ==

== ENCOUNTER → 2025-04-19 | Outpatient (CLI) | payer BC | END | disposition home or self-care (01) | LOC: WHH 08:03 | PROVIDERS: ATTEND Family Medicine | DX: M86.671 Other chronic osteomyelitis, right ankle and foot (principal); E11.69 Type 2 diabetes mellitus with other specified complication; E11.621 Type 2 diabetes mellitus with foot ulcer; L97.511 Non-pressure chronic ulcer of other part of right foot limited to breakdown of skin; L84 Corns and callosities; B35.1 Tinea unguium; L85.9 Epidermal thickening, unspecified; E11.610 Type 2 diabetes mellitus with diabetic neuropathic arthropathy; E11.42 Type 2 diabetes mellitus with diabetic polyneuropathy; E11.51 Type 2 diabetes mellitus with diabetic peripheral angiopathy without gangrene; I10 Essential (primary) hypertension; L57.0 Actinic keratosis; I87.2 Venous insufficiency (chronic) (peripheral); L40.9 Psoriasis, unspecified; E78.5 Hyperlipidemia, unspecified; E66.01 Morbid (severe) obesity due to excess calories; Z68.32 Body mass index [BMI] 32.0-32.9, adult; Z87.891 Personal history of nicotine dependence; Z90.49 Acquired absence of other specified parts of digestive tract; Z79.82 Long term (current) use of aspirin; Z89.432 Acquired absence of left foot | CPT/HCPCS: G0277 ==

== ENCOUNTER → 2025-04-20 | Outpatient (CLI) | payer BC | END | disposition home or self-care (01) | LOC: WHH 07:55 | PROVIDERS: ATTEND Family Medicine | DX: M86.671 Other chronic osteomyelitis, right ankle and foot (principal); E11.69 Type 2 diabetes mellitus with other specified complication; E11.621 Type 2 diabetes mellitus with foot ulcer; L97.511 Non-pressure chronic ulcer of other part of right foot limited to breakdown of skin; L84 Corns and callosities; B35.1 Tinea unguium; L85.9 Epidermal thickening, unspecified; E11.610 Type 2 diabetes mellitus with diabetic neuropathic arthropathy; E11.42 Type 2 diabetes mellitus with diabetic polyneuropathy; E11.51 Type 2 diabetes mellitus with diabetic peripheral angiopathy without gangrene; I10 Essential (primary) hypertension; L57.0 Actinic keratosis; I87.2 Venous insufficiency (chronic) (peripheral); L40.9 Psoriasis, unspecified; E78.5 Hyperlipidemia, unspecified; E66.01 Morbid (severe) obesity due to excess calories; Z68.32 Body mass index [BMI] 32.0-32.9, adult; Z89.432 Acquired absence of left foot; Z79.82 Long term (current) use of aspirin; Z87.891 Personal history of nicotine dependence | CPT/HCPCS: G0277 ==

== ENCOUNTER → 2025-04-21 | Outpatient (CLI) | payer BC | END | disposition home or self-care (01) | LOC: WHH 07:35 | PROVIDERS: ATTEND Podiatrist Foot & Ankle Surgery | DX: M86.671 Other chronic osteomyelitis, right ankle and foot (principal); E11.69 Type 2 diabetes mellitus with other specified complication; E11.621 Type 2 diabetes mellitus with foot ulcer; L97.511 Non-pressure chronic ulcer of other part of right foot limited to breakdown of skin; L84 Corns and callosities; I87.2 Venous insufficiency (chronic) (peripheral); E11.610 Type 2 diabetes mellitus with diabetic neuropathic arthropathy; E11.42 Type 2 diabetes mellitus with diabetic polyneuropathy; E11.51 Type 2 diabetes mellitus with diabetic peripheral angiopathy without gangrene; I10 Essential (primary) hypertension; L57.0 Actinic keratosis; L40.9 Psoriasis, unspecified; B35.1 Tinea unguium; E78.5 Hyperlipidemia, unspecified; E66.01 Morbid (severe) obesity due to excess calories; Z68.32 Body mass index [BMI] 32.0-32.9, adult; Z89.432 Acquired absence of left foot; Z79.82 Long term (current) use of aspirin; Z87.891 Personal history of nicotine dependence | CPT/HCPCS: G0277 ==

== ENCOUNTER → 2025-04-22 | Outpatient (CLI) | payer BC | END | disposition home or self-care (01) | LOC: WHH 08:18 | PROVIDERS: ATTEND Family Medicine | DX: M86.671 Other chronic osteomyelitis, right ankle and foot (principal); E11.69 Type 2 diabetes mellitus with other specified complication; E11.621 Type 2 diabetes mellitus with foot ulcer; L97.511 Non-pressure chronic ulcer of other part of right foot limited to breakdown of skin; L84 Corns and callosities; I87.2 Venous insufficiency (chronic) (peripheral); E11.610 Type 2 diabetes mellitus with diabetic neuropathic arthropathy; E11.42 Type 2 diabetes mellitus with diabetic polyneuropathy; E11.51 Type 2 diabetes mellitus with diabetic peripheral angiopathy without gangrene; I10 Essential (primary) hypertension; L57.0 Actinic keratosis; L40.9 Psoriasis, unspecified; B35.1 Tinea unguium; E78.5 Hyperlipidemia, unspecified; E66.01 Morbid (severe) obesity due to excess calories; Z68.32 Body mass index [BMI] 32.0-32.9, adult; Z89.432 Acquired absence of left foot; Z79.82 Long term (current) use of aspirin; Z87.891 Personal history of nicotine dependence | CPT/HCPCS: G0277 ==

== ENCOUNTER → 2025-04-23 | Outpatient (CLI) | payer BC | END | disposition home or self-care (01) | LOC: WHH 08:02 | PROVIDERS: ATTEND Family Medicine | DX: M86.671 Other chronic osteomyelitis, right ankle and foot (principal); E11.69 Type 2 diabetes mellitus with other specified complication; E11.621 Type 2 diabetes mellitus with foot ulcer; L97.511 Non-pressure chronic ulcer of other part of right foot limited to breakdown of skin; L84 Corns and callosities; I87.2 Venous insufficiency (chronic) (peripheral); E11.610 Type 2 diabetes mellitus with diabetic neuropathic arthropathy; E11.42 Type 2 diabetes mellitus with diabetic polyneuropathy; E11.51 Type 2 diabetes mellitus with diabetic peripheral angiopathy without gangrene; I10 Essential (primary) hypertension; L57.0 Actinic keratosis; L40.9 Psoriasis, unspecified; B35.1 Tinea unguium; E78.5 Hyperlipidemia, unspecified; E66.01 Morbid (severe) obesity due to excess calories; Z68.32 Body mass index [BMI] 32.0-32.9, adult; Z89.432 Acquired absence of left foot; Z79.82 Long term (current) use of aspirin; Z90.49 Acquired absence of other specified parts of digestive tract; Z87.891 Personal history of nicotine dependence | CPT/HCPCS: G0277 ==

== ENCOUNTER → 2025-04-27 | Outpatient (CLI) | payer BC | END | disposition home or self-care (01) | LOC: WHH 08:28 | PROVIDERS: ATTEND Family Medicine | DX: M86.671 Other chronic osteomyelitis, right ankle and foot (principal); E11.69 Type 2 diabetes mellitus with other specified complication; E11.621 Type 2 diabetes mellitus with foot ulcer; L97.511 Non-pressure chronic ulcer of other part of right foot limited to breakdown of skin; L84 Corns and callosities; I87.2 Venous insufficiency (chronic) (peripheral); E11.610 Type 2 diabetes mellitus with diabetic neuropathic arthropathy; E11.42 Type 2 diabetes mellitus with diabetic polyneuropathy; E11.51 Type 2 diabetes mellitus with diabetic peripheral angiopathy without gangrene; I10 Essential (primary) hypertension; L57.0 Actinic keratosis; L40.9 Psoriasis, unspecified; B35.1 Tinea unguium; E78.5 Hyperlipidemia, unspecified; E66.01 Morbid (severe) obesity due to excess calories; Z68.32 Body mass index [BMI] 32.0-32.9, adult; Z89.432 Acquired absence of left foot; Z79.82 Long term (current) use of aspirin; Z90.49 Acquired absence of other specified parts of digestive tract; Z87.891 Personal history of nicotine dependence | CPT/HCPCS: G0277 ==

== ENCOUNTER → 2025-04-28 | Outpatient (CLI) | payer BC | END | disposition home or self-care (01) | LOC: WHH 08:00 | PROVIDERS: ATTEND Podiatrist Foot & Ankle Surgery | DX: M86.671 Other chronic osteomyelitis, right ankle and foot (principal); E11.69 Type 2 diabetes mellitus with other specified complication; E11.621 Type 2 diabetes mellitus with foot ulcer; L97.512 Non-pressure chronic ulcer of other part of right foot with fat layer exposed; L84 Corns and callosities; I87.2 Venous insufficiency (chronic) (peripheral); E11.610 Type 2 diabetes mellitus with diabetic neuropathic arthropathy; E11.42 Type 2 diabetes mellitus with diabetic polyneuropathy; E11.51 Type 2 diabetes mellitus with diabetic peripheral angiopathy without gangrene; I10 Essential (primary) hypertension; L57.0 Actinic keratosis; L40.9 Psoriasis, unspecified; B35.1 Tinea unguium; E78.5 Hyperlipidemia, unspecified; E66.01 Morbid (severe) obesity due to excess calories; Z68.32 Body mass index [BMI] 32.0-32.9, adult; Z89.432 Acquired absence of left foot; Z79.82 Long term (current) use of aspirin; Z90.49 Acquired absence of other specified parts of digestive tract; Z87.891 Personal history of nicotine dependence | CPT/HCPCS: 11042; G0277; A6209; A4450 ==

== ENCOUNTER → 2025-04-29 | Outpatient (CLI) | payer BC | END | disposition home or self-care (01) | LOC: WHH 08:02 | PROVIDERS: ATTEND Family Medicine | DX: M86.671 Other chronic osteomyelitis, right ankle and foot (principal); E11.69 Type 2 diabetes mellitus with other specified complication; E11.621 Type 2 diabetes mellitus with foot ulcer; L97.511 Non-pressure chronic ulcer of other part of right foot limited to breakdown of skin; L84 Corns and callosities; I87.2 Venous insufficiency (chronic) (peripheral); E11.610 Type 2 diabetes mellitus with diabetic neuropathic arthropathy; E11.42 Type 2 diabetes mellitus with diabetic polyneuropathy; E11.51 Type 2 diabetes mellitus with diabetic peripheral angiopathy without gangrene; I10 Essential (primary) hypertension; L57.0 Actinic keratosis; L40.9 Psoriasis, unspecified; B35.1 Tinea unguium; E78.5 Hyperlipidemia, unspecified; E66.01 Morbid (severe) obesity due to excess calories; Z68.32 Body mass index [BMI] 32.0-32.9, adult; Z87.891 Personal history of nicotine dependence; Z79.82 Long term (current) use of aspirin; Z89.432 Acquired absence of left foot; Z90.49 Acquired absence of other specified parts of digestive tract | CPT/HCPCS: G0277 ==

== ENCOUNTER → 2025-04-30 | Outpatient (CLI) | payer BC | END | disposition home or self-care (01) | LOC: WHH 08:06 | PROVIDERS: ATTEND Family Medicine | DX: M86.671 Other chronic osteomyelitis, right ankle and foot (principal); E11.69 Type 2 diabetes mellitus with other specified complication; E11.621 Type 2 diabetes mellitus with foot ulcer; L97.512 Non-pressure chronic ulcer of other part of right foot with fat layer exposed; L84 Corns and callosities; I87.2 Venous insufficiency (chronic) (peripheral); E11.610 Type 2 diabetes mellitus with diabetic neuropathic arthropathy; E11.42 Type 2 diabetes mellitus with diabetic polyneuropathy; E11.51 Type 2 diabetes mellitus with diabetic peripheral angiopathy without gangrene; I10 Essential (primary) hypertension; L57.0 Actinic keratosis; L40.9 Psoriasis, unspecified; B35.1 Tinea unguium; E78.5 Hyperlipidemia, unspecified; E66.01 Morbid (severe) obesity due to excess calories; Z68.32 Body mass index [BMI] 32.0-32.9, adult; Z89.432 Acquired absence of left foot; Z79.82 Long term (current) use of aspirin; Z90.49 Acquired absence of other specified parts of digestive tract; Z87.891 Personal history of nicotine dependence | CPT/HCPCS: G0277; A6209 ==

== ENCOUNTER → 2025-05-11 | Outpatient (CLI) | payer BC | END | disposition home or self-care (01) | LOC: WHH 08:07 | PROVIDERS: ATTEND Family Medicine | DX: M86.671 Other chronic osteomyelitis, right ankle and foot (principal); E11.69 Type 2 diabetes mellitus with other specified complication; E11.621 Type 2 diabetes mellitus with foot ulcer; L97.512 Non-pressure chronic ulcer of other part of right foot with fat layer exposed; L84 Corns and callosities; I87.2 Venous insufficiency (chronic) (peripheral); E11.610 Type 2 diabetes mellitus with diabetic neuropathic arthropathy; E11.42 Type 2 diabetes mellitus with diabetic polyneuropathy; E11.51 Type 2 diabetes mellitus with diabetic peripheral angiopathy without gangrene; I10 Essential (primary) hypertension; L57.0 Actinic keratosis; L40.9 Psoriasis, unspecified; B35.1 Tinea unguium; E78.5 Hyperlipidemia, unspecified; E66.01 Morbid (severe) obesity due to excess calories; Z68.32 Body mass index [BMI] 32.0-32.9, adult; Z89.432 Acquired absence of left foot; Z79.82 Long term (current) use of aspirin; Z90.49 Acquired absence of other specified parts of digestive tract; Z87.891 Personal history of nicotine dependence | CPT/HCPCS: G0277 ==

== ENCOUNTER → 2025-05-12 | Outpatient (CLI) | payer BC | END | disposition home or self-care (01) | LOC: WHH 09:50 | PROVIDERS: ATTEND Podiatrist Foot & Ankle Surgery | DX: M86.671 Other chronic osteomyelitis, right ankle and foot (principal); E11.69 Type 2 diabetes mellitus with other specified complication; E11.621 Type 2 diabetes mellitus with foot ulcer; L97.512 Non-pressure chronic ulcer of other part of right foot with fat layer exposed; L84 Corns and callosities; I87.2 Venous insufficiency (chronic) (peripheral); E11.610 Type 2 diabetes mellitus with diabetic neuropathic arthropathy; E11.42 Type 2 diabetes mellitus with diabetic polyneuropathy; E11.51 Type 2 diabetes mellitus with diabetic peripheral angiopathy without gangrene; I10 Essential (primary) hypertension; L57.0 Actinic keratosis; L40.9 Psoriasis, unspecified; B95.1 Streptococcus, group B, as the cause of diseases classified elsewhere; E78.5 Hyperlipidemia, unspecified; E66.01 Morbid (severe) obesity due to excess calories; Z68.32 Body mass index [BMI] 32.0-32.9, adult; Z89.432 Acquired absence of left foot; Z79.82 Long term (current) use of aspirin; Z90.49 Acquired absence of other specified parts of digestive tract; Z87.891 Personal history of nicotine dependence | CPT/HCPCS: G0277 ==

== ENCOUNTER → 2025-05-13 | Outpatient (CLI) | payer BC | END | disposition home or self-care (01) | LOC: WHH 08:01 | PROVIDERS: ATTEND Family Medicine | DX: M86.671 Other chronic osteomyelitis, right ankle and foot (principal); E11.69 Type 2 diabetes mellitus with other specified complication; E11.621 Type 2 diabetes mellitus with foot ulcer; L97.512 Non-pressure chronic ulcer of other part of right foot with fat layer exposed; L84 Corns and callosities; I87.2 Venous insufficiency (chronic) (peripheral); E11.610 Type 2 diabetes mellitus with diabetic neuropathic arthropathy; E11.42 Type 2 diabetes mellitus with diabetic polyneuropathy; E11.51 Type 2 diabetes mellitus with diabetic peripheral angiopathy without gangrene; I10 Essential (primary) hypertension; L57.0 Actinic keratosis; L40.9 Psoriasis, unspecified; B95.1 Streptococcus, group B, as the cause of diseases classified elsewhere; E78.5 Hyperlipidemia, unspecified; E66.01 Morbid (severe) obesity due to excess calories; Z68.32 Body mass index [BMI] 32.0-32.9, adult; Z89.432 Acquired absence of left foot; Z79.82 Long term (current) use of aspirin; Z90.49 Acquired absence of other specified parts of digestive tract; Z87.891 Personal history of nicotine dependence | CPT/HCPCS: G0277 ==

== ENCOUNTER → 2025-05-14 | Outpatient (CLI) | payer BC | END | disposition home or self-care (01) | LOC: WHH 08:08 | PROVIDERS: ATTEND Family Medicine | DX: M86.671 Other chronic osteomyelitis, right ankle and foot (principal); E11.69 Type 2 diabetes mellitus with other specified complication; E11.621 Type 2 diabetes mellitus with foot ulcer; L97.512 Non-pressure chronic ulcer of other part of right foot with fat layer exposed; L84 Corns and callosities; I87.2 Venous insufficiency (chronic) (peripheral); E11.610 Type 2 diabetes mellitus with diabetic neuropathic arthropathy; E11.42 Type 2 diabetes mellitus with diabetic polyneuropathy; E11.51 Type 2 diabetes mellitus with diabetic peripheral angiopathy without gangrene; I10 Essential (primary) hypertension; L57.0 Actinic keratosis; L40.9 Psoriasis, unspecified; B95.1 Streptococcus, group B, as the cause of diseases classified elsewhere; E78.5 Hyperlipidemia, unspecified; E66.01 Morbid (severe) obesity due to excess calories; Z68.32 Body mass index [BMI] 32.0-32.9, adult; Z89.432 Acquired absence of left foot; Z79.82 Long term (current) use of aspirin; Z90.49 Acquired absence of other specified parts of digestive tract; Z87.891 Personal history of nicotine dependence | CPT/HCPCS: G0277 ==

== ENCOUNTER → 2025-05-18 | Outpatient (CLI) | payer BC | END | disposition home or self-care (01) | LOC: WHH 08:05 | PROVIDERS: ATTEND Family Medicine | DX: M86.671 Other chronic osteomyelitis, right ankle and foot (principal); E11.69 Type 2 diabetes mellitus with other specified complication; E11.621 Type 2 diabetes mellitus with foot ulcer; L97.512 Non-pressure chronic ulcer of other part of right foot with fat layer exposed; L84 Corns and callosities; I87.2 Venous insufficiency (chronic) (peripheral); E11.610 Type 2 diabetes mellitus with diabetic neuropathic arthropathy; E11.42 Type 2 diabetes mellitus with diabetic polyneuropathy; E11.51 Type 2 diabetes mellitus with diabetic peripheral angiopathy without gangrene; I10 Essential (primary) hypertension; L57.0 Actinic keratosis; L40.9 Psoriasis, unspecified; B35.1 Tinea unguium; E78.5 Hyperlipidemia, unspecified; E66.01 Morbid (severe) obesity due to excess calories; Z68.32 Body mass index [BMI] 32.0-32.9, adult; Z89.432 Acquired absence of left foot; Z79.82 Long term (current) use of aspirin; Z90.49 Acquired absence of other specified parts of digestive tract; Z87.891 Personal history of nicotine dependence | CPT/HCPCS: G0277 ==

== ENCOUNTER → 2025-05-19 | Outpatient (CLI) | payer BC | END | disposition home or self-care (01) | LOC: WHH 08:17 | PROVIDERS: ATTEND Podiatrist Foot & Ankle Surgery | DX: M86.671 Other chronic osteomyelitis, right ankle and foot (principal); E11.69 Type 2 diabetes mellitus with other specified complication; E11.621 Type 2 diabetes mellitus with foot ulcer; L97.512 Non-pressure chronic ulcer of other part of right foot with fat layer exposed; L84 Corns and callosities; I87.2 Venous insufficiency (chronic) (peripheral); E11.610 Type 2 diabetes mellitus with diabetic neuropathic arthropathy; E11.42 Type 2 diabetes mellitus with diabetic polyneuropathy; E11.51 Type 2 diabetes mellitus with diabetic peripheral angiopathy without gangrene; I10 Essential (primary) hypertension; L57.0 Actinic keratosis; L40.9 Psoriasis, unspecified; B95.1 Streptococcus, group B, as the cause of diseases classified elsewhere; E78.5 Hyperlipidemia, unspecified; E66.01 Morbid (severe) obesity due to excess calories; Z68.32 Body mass index [BMI] 32.0-32.9, adult; Z89.432 Acquired absence of left foot; Z79.82 Long term (current) use of aspirin; Z90.49 Acquired absence of other specified parts of digestive tract; Z87.891 Personal history of nicotine dependence | CPT/HCPCS: G0277; A4450 ==

== ENCOUNTER → 2025-05-20 | Outpatient (CLI) | payer BC | END | disposition home or self-care (01) | LOC: WHH 08:09 | PROVIDERS: ATTEND Family Medicine | DX: M86.671 Other chronic osteomyelitis, right ankle and foot (principal); E11.69 Type 2 diabetes mellitus with other specified complication; E11.621 Type 2 diabetes mellitus with foot ulcer; L97.512 Non-pressure chronic ulcer of other part of right foot with fat layer exposed; L84 Corns and callosities; I87.2 Venous insufficiency (chronic) (peripheral); E11.610 Type 2 diabetes mellitus with diabetic neuropathic arthropathy; E11.42 Type 2 diabetes mellitus with diabetic polyneuropathy; E11.51 Type 2 diabetes mellitus with diabetic peripheral angiopathy without gangrene; I10 Essential (primary) hypertension; L57.0 Actinic keratosis; L40.9 Psoriasis, unspecified; B95.1 Streptococcus, group B, as the cause of diseases classified elsewhere; E78.5 Hyperlipidemia, unspecified; E66.01 Morbid (severe) obesity due to excess calories; Z68.32 Body mass index [BMI] 32.0-32.9, adult; Z89.432 Acquired absence of left foot; Z79.82 Long term (current) use of aspirin; Z90.49 Acquired absence of other specified parts of digestive tract; Z87.891 Personal history of nicotine dependence | CPT/HCPCS: G0277 ==

== ENCOUNTER → 2025-05-24 | Outpatient (CLI) | payer BC | END | disposition home or self-care (01) | LOC: WHH 08:11 | PROVIDERS: ATTEND Family Medicine | DX: M86.671 Other chronic osteomyelitis, right ankle and foot (principal); E11.69 Type 2 diabetes mellitus with other specified complication; E11.621 Type 2 diabetes mellitus with foot ulcer; L97.512 Non-pressure chronic ulcer of other part of right foot with fat layer exposed; L84 Corns and callosities; I87.2 Venous insufficiency (chronic) (peripheral); E11.610 Type 2 diabetes mellitus with diabetic neuropathic arthropathy; E11.42 Type 2 diabetes mellitus with diabetic polyneuropathy; E11.51 Type 2 diabetes mellitus with diabetic peripheral angiopathy without gangrene; I10 Essential (primary) hypertension; L57.0 Actinic keratosis; L40.9 Psoriasis, unspecified; B95.1 Streptococcus, group B, as the cause of diseases classified elsewhere; E78.5 Hyperlipidemia, unspecified; E66.01 Morbid (severe) obesity due to excess calories; Z68.32 Body mass index [BMI] 32.0-32.9, adult; Z89.432 Acquired absence of left foot; Z79.82 Long term (current) use of aspirin; Z90.49 Acquired absence of other specified parts of digestive tract; Z87.891 Personal history of nicotine dependence | CPT/HCPCS: G0277 ==

== ENCOUNTER → 2025-05-25 | Outpatient (CLI) | payer BC | END | disposition home or self-care (01) | LOC: WHH 08:06 | PROVIDERS: ATTEND Family Medicine | DX: M86.671 Other chronic osteomyelitis, right ankle and foot (principal); E11.69 Type 2 diabetes mellitus with other specified complication; E11.621 Type 2 diabetes mellitus with foot ulcer; L97.512 Non-pressure chronic ulcer of other part of right foot with fat layer exposed; L84 Corns and callosities; I87.2 Venous insufficiency (chronic) (peripheral); E11.610 Type 2 diabetes mellitus with diabetic neuropathic arthropathy; E11.42 Type 2 diabetes mellitus with diabetic polyneuropathy; E11.51 Type 2 diabetes mellitus with diabetic peripheral angiopathy without gangrene; I10 Essential (primary) hypertension; L57.0 Actinic keratosis; L40.9 Psoriasis, unspecified; B95.1 Streptococcus, group B, as the cause of diseases classified elsewhere; E78.5 Hyperlipidemia, unspecified; E66.01 Morbid (severe) obesity due to excess calories; Z68.32 Body mass index [BMI] 32.0-32.9, adult; Z89.432 Acquired absence of left foot; Z87.891 Personal history of nicotine dependence; Z79.82 Long term (current) use of aspirin; Z90.49 Acquired absence of other specified parts of digestive tract | CPT/HCPCS: G0277 ==

== ENCOUNTER → 2025-05-26 | Outpatient (CLI) | payer BC | END | disposition home or self-care (01) | LOC: WHH 08:07 | PROVIDERS: ATTEND Podiatrist Foot & Ankle Surgery | DX: M86.671 Other chronic osteomyelitis, right ankle and foot (principal); E11.69 Type 2 diabetes mellitus with other specified complication; E11.621 Type 2 diabetes mellitus with foot ulcer; L97.512 Non-pressure chronic ulcer of other part of right foot with fat layer exposed; L84 Corns and callosities; I87.2 Venous insufficiency (chronic) (peripheral); E11.42 Type 2 diabetes mellitus with diabetic polyneuropathy; E11.610 Type 2 diabetes mellitus with diabetic neuropathic arthropathy; E11.51 Type 2 diabetes mellitus with diabetic peripheral angiopathy without gangrene; I10 Essential (primary) hypertension; L57.0 Actinic keratosis; L40.9 Psoriasis, unspecified; B95.1 Streptococcus, group B, as the cause of diseases classified elsewhere; E78.5 Hyperlipidemia, unspecified; E66.01 Morbid (severe) obesity due to excess calories; Z68.32 Body mass index [BMI] 32.0-32.9, adult; Z89.432 Acquired absence of left foot; Z87.891 Personal history of nicotine dependence; Z79.82 Long term (current) use of aspirin; Z90.49 Acquired absence of other specified parts of digestive tract | CPT/HCPCS: 97597; G0277 ==

== ENCOUNTER → 2025-06-09 | Outpatient (CLI) | payer BC | END | disposition home or self-care (01) | LOC: WHH 08:14 | PROVIDERS: ATTEND Podiatrist Foot & Ankle Surgery | DX: E11.621 Type 2 diabetes mellitus with foot ulcer (principal); L97.512 Non-pressure chronic ulcer of other part of right foot with fat layer exposed; L84 Corns and callosities; I87.2 Venous insufficiency (chronic) (peripheral); E11.42 Type 2 diabetes mellitus with diabetic polyneuropathy; E11.610 Type 2 diabetes mellitus with diabetic neuropathic arthropathy; E11.51 Type 2 diabetes mellitus with diabetic peripheral angiopathy without gangrene; E11.69 Type 2 diabetes mellitus with other specified complication; M86.671 Other chronic osteomyelitis, right ankle and foot; I10 Essential (primary) hypertension; L57.0 Actinic keratosis; L40.9 Psoriasis, unspecified; B95.1 Streptococcus, group B, as the cause of diseases classified elsewhere; E78.5 Hyperlipidemia, unspecified; E66.01 Morbid (severe) obesity due to excess calories; Z68.32 Body mass index [BMI] 32.0-32.9, adult; Z89.432 Acquired absence of left foot; Z87.891 Personal history of nicotine dependence; Z79.82 Long term (current) use of aspirin; Z90.49 Acquired absence of other specified parts of digestive tract | CPT/HCPCS: 11056; A6209 ==

== ENCOUNTER → 2025-06-22 | Outpatient (CLI) | payer BC | END | disposition home or self-care (01) | LOC: WHH 08:05 | PROVIDERS: ATTEND Family Medicine | DX: M86.671 Other chronic osteomyelitis, right ankle and foot (principal); E11.69 Type 2 diabetes mellitus with other specified complication; E11.621 Type 2 diabetes mellitus with foot ulcer; L97.511 Non-pressure chronic ulcer of other part of right foot limited to breakdown of skin; L84 Corns and callosities; I87.2 Venous insufficiency (chronic) (peripheral); E11.42 Type 2 diabetes mellitus with diabetic polyneuropathy; E11.610 Type 2 diabetes mellitus with diabetic neuropathic arthropathy; E11.51 Type 2 diabetes mellitus with diabetic peripheral angiopathy without gangrene; I10 Essential (primary) hypertension; L57.0 Actinic keratosis; L40.9 Psoriasis, unspecified; B95.1 Streptococcus, group B, as the cause of diseases classified elsewhere; E78.5 Hyperlipidemia, unspecified; E66.01 Morbid (severe) obesity due to excess calories; Z68.32 Body mass index [BMI] 32.0-32.9, adult; Z89.432 Acquired absence of left foot; Z87.891 Personal history of nicotine dependence; Z79.82 Long term (current) use of aspirin; Z90.49 Acquired absence of other specified parts of digestive tract | CPT/HCPCS: G0277 ==

== ENCOUNTER → 2025-06-23 | Outpatient (CLI) | payer BC | END | disposition home or self-care (01) | LOC: WHH 08:00 | PROVIDERS: ATTEND Podiatrist Foot & Ankle Surgery | DX: M86.671 Other chronic osteomyelitis, right ankle and foot (principal); E11.69 Type 2 diabetes mellitus with other specified complication; E11.621 Type 2 diabetes mellitus with foot ulcer; L97.511 Non-pressure chronic ulcer of other part of right foot limited to breakdown of skin; L84 Corns and callosities; I87.2 Venous insufficiency (chronic) (peripheral); E11.42 Type 2 diabetes mellitus with diabetic polyneuropathy; E11.610 Type 2 diabetes mellitus with diabetic neuropathic arthropathy; E11.51 Type 2 diabetes mellitus with diabetic peripheral angiopathy without gangrene; I10 Essential (primary) hypertension; L57.0 Actinic keratosis; L40.9 Psoriasis, unspecified; B95.1 Streptococcus, group B, as the cause of diseases classified elsewhere; E78.5 Hyperlipidemia, unspecified; E66.01 Morbid (severe) obesity due to excess calories; Z68.32 Body mass index [BMI] 32.0-32.9, adult; Z89.432 Acquired absence of left foot; Z87.891 Personal history of nicotine dependence; Z79.82 Long term (current) use of aspirin; Z90.49 Acquired absence of other specified parts of digestive tract | CPT/HCPCS: 99183; G0277 ==

== ENCOUNTER → 2025-06-24 | Outpatient (CLI) | payer BC | END | disposition home or self-care (01) | LOC: WHH 08:05 | PROVIDERS: ATTEND Family Medicine | DX: M86.671 Other chronic osteomyelitis, right ankle and foot (principal); E11.69 Type 2 diabetes mellitus with other specified complication; E11.621 Type 2 diabetes mellitus with foot ulcer; L97.511 Non-pressure chronic ulcer of other part of right foot limited to breakdown of skin; L84 Corns and callosities; I87.2 Venous insufficiency (chronic) (peripheral); E11.42 Type 2 diabetes mellitus with diabetic polyneuropathy; E11.610 Type 2 diabetes mellitus with diabetic neuropathic arthropathy; E11.51 Type 2 diabetes mellitus with diabetic peripheral angiopathy without gangrene; I10 Essential (primary) hypertension; L57.0 Actinic keratosis; L40.9 Psoriasis, unspecified; B95.1 Streptococcus, group B, as the cause of diseases classified elsewhere; E78.5 Hyperlipidemia, unspecified; E66.01 Morbid (severe) obesity due to excess calories; Z68.32 Body mass index [BMI] 32.0-32.9, adult; Z89.432 Acquired absence of left foot; Z87.891 Personal history of nicotine dependence; Z79.82 Long term (current) use of aspirin; Z90.49 Acquired absence of other specified parts of digestive tract | CPT/HCPCS: G0277 ==

== ENCOUNTER → 2025-06-28 | Outpatient (CLI) | payer BC | END | disposition home or self-care (01) | LOC: WHH 08:11 | PROVIDERS: ATTEND Family Medicine | DX: M86.671 Other chronic osteomyelitis, right ankle and foot (principal); E11.69 Type 2 diabetes mellitus with other specified complication; E11.621 Type 2 diabetes mellitus with foot ulcer; L97.511 Non-pressure chronic ulcer of other part of right foot limited to breakdown of skin; L84 Corns and callosities; I87.2 Venous insufficiency (chronic) (peripheral); E11.42 Type 2 diabetes mellitus with diabetic polyneuropathy; E11.610 Type 2 diabetes mellitus with diabetic neuropathic arthropathy; E11.51 Type 2 diabetes mellitus with diabetic peripheral angiopathy without gangrene; I10 Essential (primary) hypertension; L57.0 Actinic keratosis; L40.9 Psoriasis, unspecified; B95.1 Streptococcus, group B, as the cause of diseases classified elsewhere; E78.5 Hyperlipidemia, unspecified; E66.01 Morbid (severe) obesity due to excess calories; Z68.32 Body mass index [BMI] 32.0-32.9, adult; Z89.432 Acquired absence of left foot; Z87.891 Personal history of nicotine dependence; Z79.82 Long term (current) use of aspirin; Z90.49 Acquired absence of other specified parts of digestive tract | CPT/HCPCS: G0277; A6209 ==

== ENCOUNTER → 2025-06-29 | Outpatient (CLI) | payer BC | END | disposition home or self-care (01) | LOC: WHH 08:17 | PROVIDERS: ATTEND Family Medicine | DX: M86.671 Other chronic osteomyelitis, right ankle and foot (principal); E11.69 Type 2 diabetes mellitus with other specified complication; E11.621 Type 2 diabetes mellitus with foot ulcer; L97.511 Non-pressure chronic ulcer of other part of right foot limited to breakdown of skin; L84 Corns and callosities; I87.2 Venous insufficiency (chronic) (peripheral); E11.42 Type 2 diabetes mellitus with diabetic polyneuropathy; E11.610 Type 2 diabetes mellitus with diabetic neuropathic arthropathy; E11.51 Type 2 diabetes mellitus with diabetic peripheral angiopathy without gangrene; I10 Essential (primary) hypertension; L57.0 Actinic keratosis; L40.9 Psoriasis, unspecified; B95.1 Streptococcus, group B, as the cause of diseases classified elsewhere; E78.5 Hyperlipidemia, unspecified; E66.01 Morbid (severe) obesity due to excess calories; Z68.32 Body mass index [BMI] 32.0-32.9, adult; Z89.432 Acquired absence of left foot; Z87.891 Personal history of nicotine dependence; Z79.82 Long term (current) use of aspirin; Z90.49 Acquired absence of other specified parts of digestive tract | CPT/HCPCS: G0277 ==

== ENCOUNTER → 2025-06-30 | Outpatient (CLI) | payer BC | END | disposition home or self-care (01) | LOC: WHH 08:16 | PROVIDERS: ATTEND Podiatrist Foot & Ankle Surgery | DX: M86.671 Other chronic osteomyelitis, right ankle and foot (principal); E11.69 Type 2 diabetes mellitus with other specified complication; E11.621 Type 2 diabetes mellitus with foot ulcer; L97.512 Non-pressure chronic ulcer of other part of right foot with fat layer exposed; L84 Corns and callosities; I87.2 Venous insufficiency (chronic) (peripheral); E11.42 Type 2 diabetes mellitus with diabetic polyneuropathy; E11.610 Type 2 diabetes mellitus with diabetic neuropathic arthropathy; E11.51 Type 2 diabetes mellitus with diabetic peripheral angiopathy without gangrene; I10 Essential (primary) hypertension; L57.0 Actinic keratosis; L40.9 Psoriasis, unspecified; B95.1 Streptococcus, group B, as the cause of diseases classified elsewhere; E78.5 Hyperlipidemia, unspecified; E66.01 Morbid (severe) obesity due to excess calories; Z68.32 Body mass index [BMI] 32.0-32.9, adult; Z89.432 Acquired absence of left foot; Z87.891 Personal history of nicotine dependence; Z79.82 Long term (current) use of aspirin; Z90.49 Acquired absence of other specified parts of digestive tract | CPT/HCPCS: 11042; G0277; A6209 ==

== ENCOUNTER → 2025-07-01 | Outpatient (CLI) | payer BC | END | disposition home or self-care (01) | LOC: WHH 08:15 | PROVIDERS: ATTEND Family Medicine | DX: M86.671 Other chronic osteomyelitis, right ankle and foot (principal); E11.69 Type 2 diabetes mellitus with other specified complication; E11.621 Type 2 diabetes mellitus with foot ulcer; L97.511 Non-pressure chronic ulcer of other part of right foot limited to breakdown of skin; L84 Corns and callosities; I87.2 Venous insufficiency (chronic) (peripheral); E11.42 Type 2 diabetes mellitus with diabetic polyneuropathy; E11.610 Type 2 diabetes mellitus with diabetic neuropathic arthropathy; E11.51 Type 2 diabetes mellitus with diabetic peripheral angiopathy without gangrene; I10 Essential (primary) hypertension; L57.0 Actinic keratosis; L40.9 Psoriasis, unspecified; B95.1 Streptococcus, group B, as the cause of diseases classified elsewhere; E78.5 Hyperlipidemia, unspecified; E66.01 Morbid (severe) obesity due to excess calories; Z68.32 Body mass index [BMI] 32.0-32.9, adult; Z89.432 Acquired absence of left foot; Z87.891 Personal history of nicotine dependence; Z79.82 Long term (current) use of aspirin; Z90.49 Acquired absence of other specified parts of digestive tract | CPT/HCPCS: G0277 ==

== ENCOUNTER → 2025-07-06 | Outpatient (CLI) | payer BC | END | disposition home or self-care (01) | LOC: WHH 08:13 | PROVIDERS: ATTEND Family Medicine | DX: M86.671 Other chronic osteomyelitis, right ankle and foot (principal); E11.69 Type 2 diabetes mellitus with other specified complication; E11.621 Type 2 diabetes mellitus with foot ulcer; L97.511 Non-pressure chronic ulcer of other part of right foot limited to breakdown of skin; L84 Corns and callosities; I87.2 Venous insufficiency (chronic) (peripheral); E11.42 Type 2 diabetes mellitus with diabetic polyneuropathy; E11.610 Type 2 diabetes mellitus with diabetic neuropathic arthropathy; E11.51 Type 2 diabetes mellitus with diabetic peripheral angiopathy without gangrene; I10 Essential (primary) hypertension; L57.0 Actinic keratosis; L40.9 Psoriasis, unspecified; B95.1 Streptococcus, group B, as the cause of diseases classified elsewhere; E78.5 Hyperlipidemia, unspecified; E66.01 Morbid (severe) obesity due to excess calories; Z68.32 Body mass index [BMI] 32.0-32.9, adult; Z87.891 Personal history of nicotine dependence; Z89.432 Acquired absence of left foot; Z79.82 Long term (current) use of aspirin; Z90.49 Acquired absence of other specified parts of digestive tract | CPT/HCPCS: G0277 ==

== ENCOUNTER → 2025-07-07 | Outpatient (CLI) | payer BC | END | disposition home or self-care (01) | LOC: WHH 08:12 | PROVIDERS: ATTEND Family Medicine | DX: M86.671 Other chronic osteomyelitis, right ankle and foot (principal); E11.69 Type 2 diabetes mellitus with other specified complication; E11.621 Type 2 diabetes mellitus with foot ulcer; L97.511 Non-pressure chronic ulcer of other part of right foot limited to breakdown of skin; L84 Corns and callosities; I87.2 Venous insufficiency (chronic) (peripheral); E11.42 Type 2 diabetes mellitus with diabetic polyneuropathy; E11.610 Type 2 diabetes mellitus with diabetic neuropathic arthropathy; E11.51 Type 2 diabetes mellitus with diabetic peripheral angiopathy without gangrene; I10 Essential (primary) hypertension; L57.0 Actinic keratosis; L40.9 Psoriasis, unspecified; B95.1 Streptococcus, group B, as the cause of diseases classified elsewhere; E78.5 Hyperlipidemia, unspecified; E66.01 Morbid (severe) obesity due to excess calories; Z68.32 Body mass index [BMI] 32.0-32.9, adult; Z87.891 Personal history of nicotine dependence; Z89.432 Acquired absence of left foot; Z79.82 Long term (current) use of aspirin; Z90.49 Acquired absence of other specified parts of digestive tract | CPT/HCPCS: G0277 ==

== ENCOUNTER → 2025-07-21 | Outpatient (CLI) | payer BC ==
[~2025-07-21] MED LIST changes: +LIDOCAINE HCL 4% LTA SOL 4 ML VIAL TP ONE
== END | disposition home or self-care (01) ==
LOC: WHH 08:10
PROVIDERS: ATTEND Podiatrist Foot & Ankle Surgery
DX: E11.621 Type 2 diabetes mellitus with foot ulcer (principal); L97.511 Non-pressure chronic ulcer of other part of right foot limited to breakdown of skin; E11.69 Type 2 diabetes mellitus with other specified complication; M86.671 Other chronic osteomyelitis, right ankle and foot; L84 Corns and callosities; I87.2 Venous insufficiency (chronic) (peripheral); E11.42 Type 2 diabetes mellitus with diabetic polyneuropathy; E11.610 Type 2 diabetes mellitus with diabetic neuropathic arthropathy; E11.51 Type 2 diabetes mellitus with diabetic peripheral angiopathy without gangrene; I10 Essential (primary) hypertension; L57.0 Actinic keratosis; L40.9 Psoriasis, unspecified; B95.1 Streptococcus, group B, as the cause of diseases classified elsewhere; E78.5 Hyperlipidemia, unspecified; E66.01 Morbid (severe) obesity due to excess calories; Z68.32 Body mass index [BMI] 32.0-32.9, adult; Z87.891 Personal history of nicotine dependence; Z89.432 Acquired absence of left foot; Z79.82 Long term (current) use of aspirin; Z90.49 Acquired absence of other specified parts of digestive tract
CPT/HCPCS: 11056